=== PATIENT | male | born 1965 | race Caucasian/White ===

== ENCOUNTER → 2020-11-13 12:36 | Outpatient (BNVA) | payer OTHER, SELFPAY | PROVIDERS: PCP Nurse Practitioner Family; Visit Provider Orthopaedic Surgery | DX: M16.11 Unilateral primary osteoarthritis, right hip (principal); E66.01 Morbid (severe) obesity due to excess calories; Z68.41 Body mass index [BMI] 40.0-44.9, adult | CPT/HCPCS: 99212 ==

== ENCOUNTER 2020-11-14 07:15 | Outpatient (REF) | payer OTHER, SELFPAY ==
[2020-11-14 11:53] LABS: Alanine Aminotransferase 28 U/L (0-40); Albumin Level 4.5 g/dL (3.5-5.0); Alkaline Phosphatase 79 U/L (39-117); Anion Gap 14 (12-20); Aspartate Amino Transferase 21 U/L (5-37); Bilirubin Total 0.7 mg/dL (0.0-1.0); Blood Urea Nitrogen 14 mg/dL (9-16); Calcium 9.2 mg/dL (8.4-10.2); Carbon Dioxide 33 mmol/L (22-29); Chloride 94 mmol/L (96-108); Cholesterol 188 mg/dL; Estimated Glomerular Filt Rate > 60; Glucose Fasting 106 mg/dL (60-99); HDL Cholesterol 51 mg/dL; LDL Cholesterol Calculated 111 mg/dl; Potassium 4.3 mmol/L (3.3-5.1); Sodium 137 mmol/L (135-145); Total Protein 6.9 g/dL (6.5-8.0); Triglycerides 133 mg/dL
[2020-11-14 12:17] LABS: Prostate Specific Antigen Scr 0.42 ng/mL (<0.05-4.0); TSH reflex Free T4 1.94 uIU/mL (0.32-4.0)
== END 2020-11-14 07:16 | disposition home or self-care (01) ==
LOC: HO.HMGCLDS 07:15
PROVIDERS: PCP Nurse Practitioner Family; Visit Provider Nurse Practitioner Family
DX: Z00.00 Encounter for general adult medical examination without abnormal findings (principal); Z12.5 Encounter for screening for malignant neoplasm of prostate
CPT/HCPCS: 36415; 80053; 80061; 84153; 84443

== ENCOUNTER → 2020-11-30 11:46 | Outpatient (REF) | payer OTHER, SELFPAY ==
--- NOTE | 2020-11-30 12:00 | ECG_ITS ---
Hook-up date: 2020-11-30 12:05:00 Duration: 26:46:00 Test Indications: PALPITATIONS Medications: 199445 QRS complexes 2908 Ventricular ectopics which represent 2 % of total QRS comp. 26 Supraventricular ectopics which represent <1 % of total QRS comp. * Paced QRS complexs which represent % of total QRS comp. VENTRICULAR ECTOPY 2725 Isolated 43 Bigeminal Cycles 90 Couplets 1 Runs 3 Beats in Runs 3 Beats LONGEST at 137 BPM at 16:18:10 2020-11-30 3 Beats FASTEST at 137 BPM at 16:18:10 2020-11-30 SUPRAVENTRICULAR ECTOPY 26 Isolated 0 Couplets 0 Runs 0 Beats in Runs * Beats LONGEST at * BPM at :: -- * Beats FASTEST at * BPM at :: -- HEART RATES 42 MIN at 00:55:25 2020-12-01 88 AVG 143 MAX at 17:09:06 2020-11-30 LONGEST RR 1.6000 secs at 22:04:54 2020-11-30 S-T LEVELS Channel 1 - 128 mm at 12:05:00 2020-11-30 - 128 mm at 12:05:00 2020-11-30 Channel 2 - 128 mm at 12:05:00 2020-11-30 - 128 mm at 12:05:00 2020-11-30 Channel 3 - 128 mm at 03:12:41 -- - 128 mm at 03:12:41 Underlying rhythm is sinus; Average rate 88/min; range 42 - 143/min; About 24% of the time, rate >100/min; Frequent Premature ventricular complexes (2% of total); mostly isolated; some couplets, bigeminal cycles, no sustiained episodes; Patient did not report any symptoms in the diary Referred By: Alirio Iqbal Overread By: HERBER SAVAGE
== END ==
LOC: HO.CARD 11:46
PROVIDERS: Visit Provider Nurse Practitioner Family
DX: R00.2 Palpitations (principal); E66.01 Morbid (severe) obesity due to excess calories
CPT/HCPCS: 93226

== ENCOUNTER 2020-12-26 07:29 | Outpatient (REF) | payer OTHER, SELFPAY ==
--- NOTE | ~2020-12-26 | FL_ITS ---
EXAMINATION: XR FLUOROSCOPY WITH IMAGES CLINICAL INFORMATION: Right hip osteoarthritis COMPARISON: None. TECHNIQUE: Fluoroscopy performed by France Mcclendon NP. Fluoroscopy time: 0.1 minutes DAP: 3.5 Gycm2 Images: 2 FINDINGS: Images demonstrate needle placement projecting over the right hip joint and small amount of intra-articular contrast in the right hip joint. FL/FL guidance in treatment room IMPRESSION: Fluoroscopic guidance for right hip injection.
== END 2020-12-26 07:30 | disposition home or self-care (01) ==
LOC: HO.RADIR 07:29
PROVIDERS: Visit Provider Anesthesiology
DX: M16.11 Unilateral primary osteoarthritis, right hip (principal); E66.01 Morbid (severe) obesity due to excess calories; Z79.899 Other long term (current) drug therapy
CPT/HCPCS: 20610; J3300; Q9967

== ENCOUNTER → 2021-01-05 09:14 | Outpatient (REF) | payer OTHER, SELFPAY ==
--- NOTE | 2021-01-05 09:18 | CA_ITS ---
Transthoracic Echocardiogram Patient (Last, First, Middle): Hans Simon A Gender: Male Date of : 1965 Age: 55 Procedure Date: 01/05/2021 Procedure Type: Transthoracic Echocardiogram Location: OP Height: 170.18 cm Weight: 122.47 kg BSA: 2.30 m2 Heart Rate: bpm BP: 170 / 70 mmHg [employer] Inspector: [place] Referring MD: Alirio Iqbal [facility] Symptoms: R00.2 - Palpitations Study Quality: Fair ECG Rhythm: Sinus Conclusions: - The left ventricular systolic function is normal. The calculated ejection fraction is 57% by biplane method. - No obvious valvular pathology seen on this study. Findings Procedure Information Contrast agent, definity, is being given per protocol without apparent complications. Left Ventricle Normal left ventricular cavity size. There is mildly increased left ventricular wall thickness. The left ventricular systolic function is normal. The calculated ejection fraction is 57% by biplane method. There is no evidence of regional wall motion abnormalities. Diastolic function is normal for age. Right Ventricle Normal right ventricular cavity size and systolic function. Atria The left atrium is normal in size. The right atrium is normal in size. Aortic Valve There is a normal trileaflet aortic valve. There is mild calcification of the aortic valve. There is no aortic valve stenosis. There is no aortic valve regurgitation. Mitral Valve The mitral valve appears normal. There is trace mitral valve regurgitation. There is no mitral valve stenosis. Pulmonic Valve The pulmonic valve was not well visualized. Tricuspid Valve The tricuspid valve was not well visualized. There is trace tricuspid valve regurgitation. The pulmonary artery systolic pressure is normal. Great Vessels The aortic annulus, sinuses of valsalva, and asc aorta are normal in size. Venous The inferior vena cava is normal in size and collapses greater than 50% with inspiration. Pericardium/Pleural There is no evidence of pericardial effusion. Prior Study Comparison No prior study available for comparison. Recommendations, Care & Conclusions No obvious valvular pathology seen on this study. Measurements 2D Linear Measurements IVSd: 1.29 0.6-0.9/0.6-1.0 cm LVIDd: 5.70 3.9-5.3/4.2-5.9 cm LVIDd Index: 2.48 2.4-3.2/2.2-3.1 cm/m2 LVIDs: 4.54 2.0-3.6 cm LVPWd: 1.41 0.7-1.1 cm LA Diam: 4.50 2.7-3.8/3.0-4.0 cm LAIDs Index: 1.96 1.5-2.3 cm/m2 LV Mass: 423.81 67-162/88-224 g LV Mass Index: 184.27 43-95/49-115 g/m2 LVOT Diam: 2.30 3.0+(-)1.3 cm 2D Systolic Function EF 4C: 61.60 >55% EF 2C: 52.10 >55% EF BiP: 57.00 >55% Mitral Valve MV Pk E: 0.58 MV PK A: 0.72 MV Decel Time: 143.00 E/A: 0.80 E'Lateral: 11.10 E'Medial: 5.55 E/E' Med: 10.50 E/E' Lat: 5.30 PHT: 42.00 MVA PHT: 5.24 Decel Ashe: 4.08 Aortic Valve AoV Pk Aman: 1.64 AoV Pk Grad: 11.00 LVOT LVOT Pk Aman: 1.14 LVOT Mn Aman: 0.72 LVOT VTI: 0.21 LVOT Pk Grad: 5.00 LVOT Mn Grad: 3.00 LVOT Diam: 2.30 LVOT Area: 4.15 Diastolic Function MV Pk E: 0.58 MV Pk A: 0.72 E/A: 0.80 E'Medial: 5.55 E/E' Med: 10.50 E' Laterial: 11.10 E/E' Lat: 5.30 Tricuspid Valve TR Pk Aman: 2.33 TR Pk Grad: 22.00 RA Press: 3.00 RVSP: 25.00 Great Vessels Aorta Ao Asc: 3.40 2.1-3.4 cm Updated in Other Vendor System with Status of Final Juan Antonio Rebolledo MD electronically signed on 01/06/2021 2:31:02 PM with status of Final
== END ==
LOC: HO.CARD 09:14
PROVIDERS: Visit Provider Nurse Practitioner Family
DX: R00.2 Palpitations (principal); E66.01 Morbid (severe) obesity due to excess calories
CPT/HCPCS: 93306; Q9957

== ENCOUNTER 2021-02-14 08:44 | Outpatient (REF) | payer OTHER, SELFPAY ==
[2021-02-14 11:11] LABS: Glucose Urine UA NEG (NEG); Leukocyte Esterase Urine NEG (NEG); Nitrite Urine NEG (NEG); PH 7.5 (5.0-8.0); Specific Gravity - Urine 1.015 (1.005-1.025); UACC Culture Trigger NO; Urine Blood TRACE (NEG); Urine Ketones 15 MG/DL (NEG); Urine Protein NEG (NEG-TRACE)
[2021-02-14 11:13] LABS: Appearance Urine CLEAR; Color Urine YELLOW
[2021-02-14 11:32] LABS: WBC Urine 0-2 /HPF (0-4)
[2021-02-14 11:38] LABS: Alanine Aminotransferase 31 U/L (0-40); Albumin Level 4.4 g/dL (3.5-5.0); Alkaline Phosphatase 85 U/L (39-117); Anion Gap 12 (12-20); Aspartate Amino Transferase 27 U/L (5-37); Bilirubin Total 0.6 mg/dL (0.0-1.0); Blood Urea Nitrogen 13 mg/dL (9-16); Calcium 9.8 mg/dL (8.4-10.2); Carbon Dioxide 30 mmol/L (22-29); Chloride 100 mmol/L (96-108); Cholesterol 183 mg/dL; Estimated Glomerular Filt Rate > 60; Glucose Fasting 98 mg/dL (60-99); HDL Cholesterol 36 mg/dL; LDL Cholesterol Calculated 112 mg/dl; Potassium 4.1 mmol/L (3.3-5.1); Sodium 138 mmol/L (135-145); Total Protein 6.9 g/dL (6.5-8.0); Triglycerides 179 mg/dL
[2021-02-14 12:00] LABS: TSH reflex Free T4 2.34 uIU/mL (0.32-4.0)
== END 2021-02-14 08:45 | disposition home or self-care (01) ==
LOC: HO.HMGCLDS 08:44
PROVIDERS: PCP Nurse Practitioner Family; Visit Provider Nurse Practitioner Family
DX: Z00.00 Encounter for general adult medical examination without abnormal findings (principal)
CPT/HCPCS: 36415; 80053; 80061; 81001; 84443

== ENCOUNTER → 2021-03-14 09:23 | Outpatient (BNVA) | payer OTHER, SELFPAY | PROVIDERS: Visit Provider Orthopaedic Surgery | DX: Z01.812 Encounter for preprocedural laboratory examination (principal) ==

== ENCOUNTER 2021-03-15 | Outpatient (REF) | payer OTHER, SELFPAY ==
[2021-03-16 13:45] LABS: Urine Cytology See Pathology rpt
== END 2021-03-15 00:01 | disposition home or self-care (01) ==
LOC: HO.LNP
PROVIDERS: Visit Provider Nurse Practitioner Family
DX: R31.29 Other microscopic hematuria (principal)
CPT/HCPCS: 88112

== ENCOUNTER 2021-04-13 07:17 | Outpatient (REF) | payer OTHER, SELFPAY ==
[2021-04-13 11:29] LABS: Appearance Urine CLEAR; Color Urine YELLOW; Glucose Urine UA NEG (NEG); Leukocyte Esterase Urine NEG (NEG); PH 6.5 (5.0-8.0); Urine Blood TRACE (NEG); Urine Ketones 15 MG/DL (NEG); Urine Protein NEG (NEG-TRACE)
[2021-04-13 12:00] LABS: Nitrite Urine NEG (NEG); UACC Culture Trigger NO
[2021-04-13 12:01] LABS: Calcium Oxalate Crystals Urine 1+ /LPF; Mucus Urine 2+ /LPF; Squamous Epithelial Cell Urine 1+ /LPF; WBC Urine 0 /HPF (0-4)
== END 2021-04-13 07:18 | disposition home or self-care (01) ==
LOC: HO.HMGCLDS 07:17
PROVIDERS: PCP Nurse Practitioner Family; Visit Provider Nurse Practitioner Family
DX: R31.29 Other microscopic hematuria (principal)
CPT/HCPCS: 81001

== ENCOUNTER → 2021-04-16 10:41 | Outpatient (BNVA) | payer OTHER, SELFPAY | PROVIDERS: PCP Nurse Practitioner Family; Visit Provider Orthopaedic Surgery | DX: Z01.818 Encounter for other preprocedural examination (principal); M16.11 Unilateral primary osteoarthritis, right hip | CPT/HCPCS: 99212 ==

== ENCOUNTER 2021-04-18 06:21 | Inpatient (IN) | payer OTHER, SELFPAY ==
[2021-03-15 11:25] LABS: MANUAL DIFF FLAG NO
[2021-03-15 11:43] LABS: Basophils Absolute Auto 0.1 X10*3/uL (0.0-0.2); Basophils Percent Auto 0.5 % (0-2); Eosinophils Absolute Auto 0.3 X10*3/uL (0.0-0.4); Hematocrit 49.9 % (42-52); Hemoglobin 16.7 g/dl (14.0-18.0); Imm Gran Abs Auto 0.03 X10*3/uL (0.00-0.03); Imm Gran Pct Auto 0.3 % (0.0-0.4); Mean Corpuscular HGB Conc 33.5 g/dl (31.0-36.0); Mean Corpuscular Hemoglobin 31.1 pg (27.0-33.0); Mean Corpuscular Volume 92.9 fL (80-98); Mean Platelet Volume 11.4 fL (9.4-12.4); Monocytes Absolute Auto 0.9 X10*3/uL (0.1-1.2); Neutrophils Absolute Auto 5.5 X10*3/uL (2.0-8.3); Neutrophils Percent Auto 56.2 % (45-73); Platelet Count 208 X10*3/uL (160-400); Red Blood Count 5.37 X10*6/uL (4.60-5.80); Red Cell Distribution Width 13.2 % (11.0-16.0); White Blood Count 9.8 X10*3/uL (4.8-10.8)
[2021-03-15 11:58] LABS: Anion Gap 13 (12-20); Blood Urea Nitrogen 16 mg/dL (9-16); Calcium 9.5 mg/dL (8.4-10.2); Carbon Dioxide 26 mmol/L (22-29); Chloride 101 mmol/L (96-108); Estimated Glomerular Filt Rate > 60; Glucose Random 87 mg/dL (60-115); Sodium 136 mmol/L (135-145)
[2021-03-15 14:00] LABS: Urine Cytology See Pathology rpt
[2021-03-15 14:10] LABS: Glucose Urine UA NEG (NEG); Leukocyte Esterase Urine NEG (NEG); Nitrite Urine NEG (NEG); Specific Gravity - Urine <= 1.005 (1.005-1.025); UACC Culture Trigger NO; Urine Blood TRACE (NEG); Urine Ketones 5 MG/DL (NEG); Urine Protein NEG (NEG-TRACE)
[2021-03-15 14:13] LABS: Appearance Urine CLEAR; Color Urine YELLOW
[2021-03-15 14:35] LABS: WBC Urine 0 /HPF (0-4)
[2021-03-15 14:36] LABS: RBC Urine 0-2 /HPF (0); Squamous Epithelial Cell Urine 1+ /LPF
[2021-04-16 12:58] VITALS: BP 117/71; PULSE 77; RESP 16; O2SAT 96; BMI 41.4
--- NOTE | 2021-04-16 13:40 | HO.ANESPROP2 ---
Documented by User: Christine Hyde NP 04/17/21 08:22 HPI - Anesthesia Eval Consult details Narrative: 56yo M for Right Total Hip Replacement PCP cleared Workup for palpiations in 2020. ECHO nml, Holter showed freq isolated PVC PMFSH Active Problems Active Problems: All Active Problems (Updated 04/16/21 @ 13:28 by Irene Hector, RN) Long toenail (Acute) Skin lesions, generalized (Acute) Physical exam (Acute) Palpitations (Acute) Screening PSA (prostate specific antigen) (Acute) Morbid obesity (Acute) Microscopic hematuria (Acute) Pre-op evaluation (Acute) Primary osteoarthritis of right hip (Acute) Past Medical History Medical History (Updated 04/16/21 @ 13:28 by Irene Hector, RN) Ankle fracture, left Gout Hypertension Primary osteoarthritis of right hip Rupture of right biceps tendon Family History Family History (Updated 02/14/21 @ 09:16 by Nina Yang) Father COPD (chronic obstructive pulmonary disease) Cancer Hypertension Substance abuse Mother COPD (chronic obstructive pulmonary disease) Hypertension Substance abuse Family history of problems with anesthesia: No Surgical History Surgical History (Updated 04/16/21 @ 13:27 by Irene Hector, RN) H/O colonoscopy H/O right wrist surgery History of carpal tunnel repair History of left hip replacement History of Problems with Anesthesia: No Social History Social History (Updated 04/16/21 @ 13:30 by Irene Hector, JUN) Housing: House Are you a primary director career services to a significant other at home: No Do you presently have visiting nurse or other home services: No Patient Tobacco Use Status: Current everyday Tobacco user Tobacco use type: Cigarette Cigarettes Per Day: 2 Years Smoked: 15 Smoked in Last 30 Days: Yes e-Cigarette/Vaping Use: Currently Using Patient Interested in Nicotine Replacement: No Patient Given Instructions on How to Stop Smoking: Yes Date Education Initiated: 04/16/21 Second Hand Smoke Exposure: No Use of substances other than those prescribed or required for medical reasons: Yes Substance Use Type: Marijuana Substance Use Frequency: Daily Have you been hit, kicked, punched, or otherwise hurt by someone within the past year? If so, by whom?: No Spiritual Healthcare Practices: none Spiritism Healthcare Practices: none Cultural Healthcare Practices: none Are you DNR?: No Advance Directives: No Advance Directives Information Provided: No Advance Directives on File: No Recently lost weight without trying: No Nutrition Risks: No Nutritional Risk Poor oral hygiene: No service: No Current occupational status: employed Current occupation: [employer] Current occupational exposures/hazards: No Narrative Narrative: No recent illness No CP/SOB with grocery shopping Meds Allergies Allergy/AdvReac Type Severity Reaction Status Date / Time No Known Allergies Allergy Verified 04/16/21 13:18 Home Medications Medication Instructions Recorded Confirmed Last Taken Type indomethacin 50 mg capsule 50 mg PO BID 04/09/21 04/16/21 Unknown History cetirizine 10 mg capsule (Zyrtec) 10 mg PO DAILY 04/16/21 04/16/21 Unknown History ipratropium bromide 21 mcg (0.03 2 spray INTRANASAL DAILY 04/16/21 04/16/21 Unknown History %) nasal spray krill oil 500 mg capsule mg PO 04/16/21 Unknown History vitamin E 400 unit capsule 400 unit PO DAILY 04/16/21 04/16/21 Unknown History Exam Exam Date and Time: April 16, 2021 1340 Height,Weight and Vital Signs: Height 5 ft 7 in Weight 120 kg Last Vital Signs Pulse 77 04/16/21 12:58 Resp 16 04/16/21 12:58 BP 117/71 04/16/21 12:58 Pulse Ox 96 04/16/21 12:58 Pertinent Lab Results Pertinent Lab Results: Laboratory Tests 03/15/21 03/15/21 03/15/21 10:12 10:12 11:45 WBC 9.8 RBC 5.37 Hgb 16.7 Hct 49.9 MCV 92.9 MCH 31.1 MCHC 33.5 RDW 13.2 Plt Count 208 MPV 11.4 Immature Gran % (Auto) 0.3 Neut % (Auto) 56.2 Lymph % (Auto) 31.0 Heard % (Auto) 9.0 Eos % (Auto) 3.0 Baso % (Auto) 0.5 Lymph # (Auto) 3.0 Heard # (Auto) 0.9 Eos # (Auto) 0.3 Baso # (Auto) 0.1 Abs Immat Gran (auto) 0.03 Absolute Neuts (auto) 5.5 Absolute Nucleated RBC 0.000 Nucleated RBC % (auto) 0.0 Sodium 136 Potassium 4.0 Chloride 101 Carbon Dioxide 26 Anion Gap 13 BUN 16 Creatinine 0.84 Estim Creat Clear Calc TNP Estimated GFR > 60 Random Glucose 87 Calcium 9.5 Urine Color YELLOW Urine Appearance CLEAR Urine pH 6.0 Ur Specific [place] <= 1.005 Urine Protein NEG Urine Glucose (UA) NEG Urine Ketones 5 Urine Blood TRACE Urine Nitrite NEG Ur Leukocyte Esterase NEG Urine RBC 0-2 Urine WBC 0 Ur Squamous Epith Cells 1+ Urine Bacteria NONE Narrative Narrative: EKG 03/2021 NSR with SA @ 69 HOLTER 11/2020 Underlying rhythm is sinus; Average rate 88/min; range 42 - 143/min; About 24% of the time, rate >100/min; Frequent Premature ventricular complexes (2% of total); mostly isolated; some couplets, bigeminal cycles,? no sustiained episodes; Patient did not report any symptoms in the diary ECHO 12/2020 Conclusions: - The left ventricular systolic function is normal.? The ? calculated ejection fraction is 57% by biplane method. ? - No obvious valvular pathology seen on this study.?? Airway Mallampati Class: II TM Dist: >3cm Neck ROM: Full Adult Head Mouth w/Numbe Teeth: 1. Broken Loose/Missing/Broken Teeth: Yes (1xbroken, molars extracted) Heart: RRR Lungs: CTAB Assessment and Plan Assessment Anesthesia Assessment: Anesthesia Plan Discussed, Smoking Cess. Discussed and PAT Visit Final Anesthetic Review Family History of Problems with Anesthesia: No History of Problems with Anesthesia: No Documented by User: Nuno Rodgers MD 04/18/21 06:50 [facility] Past Medical History Medical History (Updated 04/16/21 @ 13:28 by Irene Hector RN) Ankle fracture, left Gout Hypertension Primary osteoarthritis of right hip Rupture of right biceps tendon Family History Family History (Updated 02/14/21 @ 09:16 by Nina Yang) Father COPD (chronic obstructive pulmonary disease) Cancer Hypertension Substance abuse Mother COPD (chronic obstructive pulmonary disease) Hypertension Substance abuse Surgical History Surgical History (Updated 04/16/21 @ 13:27 by Irene Hector RN) H/O colonoscopy H/O right wrist surgery History of carpal tunnel repair History of left hip replacement Social History Social History (Updated 04/16/21 @ 13:30 by Irene Hector RN) Housing: House Are you a primary director career services to a significant other at home: No Do you presently have visiting nurse or other home services: No Patient Tobacco Use Status: Current everyday Tobacco user Tobacco use type: Cigarette Cigarettes Per Day: 2 Years Smoked: 15 Smoked in Last 30 Days: Yes e-Cigarette/Vaping Use: Currently Using Patient Interested in Nicotine Replacement: No Patient Given Instructions on How to Stop Smoking: Yes Date Education Initiated: 04/16/21 Second Hand Smoke Exposure: No Use of substances other than those prescribed or required for medical reasons: Yes Substance Use Type: Marijuana Substance Use Frequency: Daily Have you been hit, kicked, punched, or otherwise hurt by someone within the past year? If so, by whom?: No Spiritual Healthcare Practices: none Spiritism Healthcare Practices: none Cultural Healthcare Practices: none Are you DNR?: No Advance Directives: No Advance Directives Information Provided: No Advance Directives on File: No Recently lost weight without trying: No Nutrition Risks: No Nutritional Risk Poor oral hygiene: No service: No Current occupational status: employed Current occupation: [employer] Current occupational exposures/hazards: No Meds Allergies Allergy/AdvReac Type Severity Reaction Status Date / Time No Known Allergies Allergy Verified 04/16/21 13:18 Home Medications Medication Instructions Recorded Confirmed Last Taken Type indomethacin 50 mg capsule 50 mg PO BID 04/09/21 04/16/21 Unknown History cetirizine 10 mg capsule (Zyrtec) 10 mg PO DAILY 04/16/21 04/16/21 Unknown History ipratropium bromide 21 mcg (0.03 2 spray INTRANASAL DAILY 04/16/21 04/16/21 Unknown History %) nasal spray krill oil 500 mg capsule mg PO 04/16/21 Unknown History vitamin E 400 unit capsule 400 unit PO DAILY 04/16/21 04/16/21 Unknown History Exam Airway Adult Head Mouth w/Numbe Teeth: 1. Broken Assessment and Plan Final Anesthetic Review NPO: Yes ASA Class: III Final Preanesthetic Review: No Changes in Pt Med Stat, Meds/Allgs Chart Reviewed, Consent Obtained/Reviewed and Anes Risks/Benef Reviewed Patient Risk: Intermediate Procedure Risk: Intermediate Assessment/Block/Sedation in SS: Assess/Block/Sedation-SS Anesthetic Plan Anesthetic Plan: GA and Agree w/ Assess. and Plan Disposition: Standard PACU
[2021-04-16 15:20] LABS: MRSA Nasal PCR NEGATIVE (Negative); SA Nasal PCR NEGATIVE (Negative)
[2021-04-18] VITALS (19 sets, daily range): BP systolic 124–168; BP diastolic 55–91; PULSE 80–97; RESP 16–20; TEMP 36.1–36.9; O2SAT 93–99
--- NOTE | ~2021-04-18 | XR_ITS ---
EXAMINATION: XR PELVIS CLINICAL INFORMATION: Post right hip replacement COMPARISON: Previous x-ray January 2020 TECHNIQUE: AP view of the pelvis. FINDINGS: There is a new right hip replacement in satisfactory position. No fracture or dislocation is seen. There is a left hip replacement that appears unchanged. Bones of the pelvis are unremarkable. Soft tissues are unremarkable. XR/XR pelvis 1-2V IMPRESSION: Satisfactory appearance of right hip replacement.
[2021-04-18] MEDS: oxyCODONE HCl ER 10 MG TAB.ER.12H PO ×2 (06:35→21:06)
[2021-04-18] MEDS: Lactated Ringers 1,000 ML 100 ML IVCONT (06:55)
[2021-04-18 06:56] LABS: COVID-19 Test Negative (Negative)
--- NOTE | 2021-04-18 07:15 | MHC.SHP ---
Pre-Procedural Eval Section A Date of Service: 04/18/21 The patient is an INPATIENT: No Changes since office visit: Yes Patient answered all questions; No Cold of Flu in the past 2 weeks, No New Medical Problems and No Changes in Medication The History & Physical has been completed within 30 days and I have reviewed it.: Yes Section B Chief Complaint: RT DEBBIE Allergies: Allergies Allergy/AdvReac Type Severity Reaction Status Date / Time No Known Allergies Allergy Verified 04/16/21 13:18 Plan I have reviewed the history and physical and performed a pertinent physical examination on my patient. No changes have occurred unless specified.
[2021-04-18] MEDS: HYDROmorphone HCl 0.5 MG/0.5 ML SYRINGE IVPUSH ×2 (10:14→10:22)
--- NOTE | 2021-04-18 10:18 | P.BOP_ITS ---
Brief Operative Note Date of Service: 04/18/21 Pre-op diagnosis: right hip OA Post-op diagnosis: same Procedure: Right DEBBIE Implants: Derek trident2 52/ 20 deg post lipped liner and Accolade2 132deg #6 with =2.5 26 ceramic head Surgeon: Juan Carlos Jauregui MD Anesthesia: GETA and local Was an Customs And Border Protection Officer used for this Procedure?: Yes Customs And Border Protection Officer: Alex Mitchell Estimated blood loss (mL): 150 IV fluids (mL): 1,000 Pathology: other Condition: stable Disposition: PACU
--- NOTE | 2021-04-18 10:19 | P.OP_ITS ---
Operative Note Operative Note Date of Service: 04/18/21 Narrative: Pre-op diagnosis: right hip OA Post-op diagnosis: same Procedure: Right DEBBIE Implants: [place] trident2 52/ 20 deg post lipped liner and Accolade2 132deg #6 with =2.5 26 ceramic head Surgeon: Juan Carlos Jauregui MD Anesthesia: GETA and local Was an Storage Battery Tester used for this Procedure?: Yes Storage Battery Tester: Alex Mitchell Estimated blood loss (mL): 150 IV fluids (mL): 1,000 Pathology: other Condition: stable Disposition: PACU Procedure in detail: Patient was brought into the operating room and placed in the left lateral decubitus position. All bony prominences were well padded and the limb was prepped and draped in standard sterile fashion. Time-out was called to identify proper site procedure proper surgeon IV antibiotics and 1 g of transaxemic acid were administered. I began by making a curvilinear incision over the posterolateral aspect of the greater trochanter. Dissection was taken down to the tensor fascia which was incised in line with the incision and a Charnley retractor was placed. Cautery was used to maintain hemostasis. A werewolf device was also used. The hip was internally rotated and the external rotators were identified. The vessels were cauterized and a full-thickness capsular/external rotator layer was developed starting just proximal to the piriformis. This layer was tagged and a dull Hohmann retractor was placed underneath the neck in the hip was dislocated. The head was eburnated and deformed. A neck cut was made 1 cm proximal to the lesser trochanter and the head and neck were removed and measured as a 49mm on the back table. I then placed my anterior-posterior acetabular retractors and performed a labrectomy. The cup was sclerotic. I then started with a 46 reamer and sequentially reamed up to a size 52 and impacted a 52mm cup at approximately 45 degrees of inclination and 25 degrees of version. I then placed 2 screws as the posterior wall was thin. Standard AO technique was used and a 30mm and a 15 mm screw was added. I then placed a 20 deg post lipped liner and turned my attention to the femur. I identified the piriformis insertion and used this as a starting point for my ania cutter. The medius tendon was protected with a Hibs retractor. I then used a Charnley awl to identify the canal and a curved curette to remove the lateral bone. I irrigated copiously. I then sequentially broached in the patient's natural version to a size #6 and placed my trial implants. Using a trail head I took the hip through range of motion. I was very satisfied with the stability and length. Therefore I removed all instrumentation and copiously irrigated. I placed my final femoral implant (#6, 132 deg and a =2.5 ceramic 36 femoral head) and again took the hip through range of motion and was satisfied with the stability and length. I then irrigated for 3 minutes with iodine and placed 1 g of local tranaxemic acid. I then performed a capsular closure with 2.0 fiberwire, Holli's fascia with 0 Vicryl, subcuticular with 2-0 Vicryl and the skin with lesley. Patient was placed into a sterile dressing. Radiographs were obtained at the completion of the case and I was satisfied with the component position. Patient was extubated brought to the recovery room in stable condition.
[2021-04-18] MEDS: fentaNYL citrate/PF 100 MCG/2 ML VIAL 50 MCG IVPUSH ×2 (10:31→10:38)
--- NOTE | 2021-04-18 11:50 | PM.IMCN ---
History of Present Illness Data of Consult Service Date: 04/18/21 Primary Care Provider: Alirio Iqbal, [facility]- HPI Reason for consult: htn 56M presented for elective right hip arthroplasty for ongoing history of OA. patient has history of htn treated with amlodipine and lisinopril, and hld treated with pravasatin, he is morbidly obese but has had successful 60-70 lbs intentional weight loss prior to undergoing surgery. postoperatively he has pain at surgical site, otherwise no sob, chest pain, fever, chills Review of Systems Review of Systems: Constitutional: Denies fever, denies Chills Eyes: denies blurry vision ENT: denies sore throat CVS: denies chest pain Respiratory: Denies dyspnea GI: no abdominal pain : denies dysuria MSK: denies neck pain Skin: denies rash Neuro: denies specific motor weakness Psych: denies suicidal ideation Endocrine: denies heat/cold intolerance Hematologic: denies easy bleeding Allergy: denies hives [facility] Medical History (Updated 04/18/21 @ 11:54 by Meño Fortune MD) Ankle fracture, left Gout HLD (hyperlipidemia) Hypertension Primary osteoarthritis of right hip Rupture of right biceps tendon Family History Father COPD (chronic obstructive pulmonary disease) Cancer Hypertension Substance abuse Mother COPD (chronic obstructive pulmonary disease) Hypertension Substance abuse Pertinent family history: see above Surgical History H/O colonoscopy H/O right wrist surgery History of carpal tunnel repair History of left hip replacement Social History Housing: House Are you a primary lawn care worker to a significant other at home: No Do you presently have visiting nurse or other home services: No Patient Tobacco Use Status: Current everyday Tobacco user Tobacco use type: Cigarette Cigarettes Per Day: 2 Years Smoked: 15 Smoked in Last 30 Days: Yes e-Cigarette/Vaping Use: Currently Using Patient Interested in Nicotine Replacement: No Patient Given Instructions on How to Stop Smoking: Yes Date Education Initiated: 04/16/21 Second Hand Smoke Exposure: No Use of substances other than those prescribed or required for medical reasons: Yes Substance Use Type: Marijuana Substance Use Frequency: Daily Currently Displaying Signs/Symptoms of Drug Intoxication Withdrawal: No Have you been hit, kicked, punched, or otherwise hurt by someone within the past year? If so, by whom?: No Spiritual Healthcare Practices: none Mosque Healthcare Practices: none Cultural Healthcare Practices: none Are you DNR?: No Advance Directives: No Advance Directives Information Provided: No Advance Directives on File: No Do you have thoughts of harming others: None Do you have a plan to hurt others: No Plan Recently lost weight without trying: No Nutrition Risks: No Nutritional Risk Poor oral hygiene: No service: No Current occupational status: employed Current occupation: [employer] Current occupational exposures/hazards: No Meds Allergies Allergy/AdvReac Type Severity Reaction Status Date / Time No Known Allergies Allergy Verified 04/16/21 13:18 Active Medications: Current Medications Acetaminophen (Acetaminophen 325 Mg Tablet) 650 mg PO Q6H PRN PRN Reason: Pain, Mild (Pain Scale 1-3) Amlodipine Besylate (Amlodipine Besylate 5 Mg Tablet) 5 mg PO DAILY [facility]; Protocol Celecoxib (Celecoxib 200 Mg Capsule) 200 mg PO BID [facility] Docusate Sodium (Docusate Sodium 100 Mg Capsule) 100 mg PO BID [facility] Gabapentin (Gabapentin 100 Mg Capsule) 100 mg PO TID [facility] Hydromorphone HCl (Hydromorphone Hcl 0.5 Mg/0.5 Ml Syringe) 0.25 mg IVPUSH Q4H PRN; Protocol PRN Reason: Pain, Severe (Pain Scale 7-10) Dextrose/Sodium Chloride (D51/2ns) 1,000 mls @ 80 mls/hr IVCONT .[id number] [facility] Cefazolin Sodium/Dextrose (Ancef) 2 gm in 50 mls @ 100 mls/hr IV POSTOP [facility] Loratadine (Loratadine 10 Mg Tablet) 10 mg PO DAILY [facility] Ondansetron HCl (Ondansetron Hcl 4 Mg/2 Ml Vial) 4 mg IVPUSH Q8H PRN PRN Reason: Nausea and Vomiting Oxycodone HCl (Oxycodone Hcl Immed Release 5 Mg Tablet) 10 mg PO Q4H PRN PRN Reason: Pain, Moderate (Pain Scale 4-6 Oxycodone HCl (Oxycodone Hcl Er 10 Mg Tab.Er.12h) 10 mg PO BID [facility] Pravastatin Sodium (Pravastatin Sodium 80 Mg Tablet) 80 mg PO DAILY [facility] Sodium Chloride (0.9 % Sodium Chloride Flush 3 Ml Syringe) 3 ml IVFLUSH QSHIFT [facility] Home Medications Medication Instructions Recorded Confirmed Last Taken Type indomethacin 50 mg capsule 50 mg PO BID 04/09/21 04/16/21 Unknown History cetirizine 10 mg capsule (Zyrtec) 10 mg PO DAILY 04/16/21 04/16/21 Unknown History ipratropium bromide 21 mcg (0.03 2 spray INTRANASAL DAILY 04/16/21 04/16/21 Unknown History %) nasal spray krill oil 500 mg capsule mg PO 04/16/21 Unknown History vitamin E 400 unit capsule 400 unit PO DAILY 04/16/21 04/16/21 Unknown History Physical Exam Vital Signs and Narrative: Vital Signs: Last Vital Signs Temp 97.5 F 04/18/21 11:40 Pulse 97 04/18/21 11:40 Resp 18 04/18/21 11:40 BP 168/88 H 04/18/21 11:40 Pulse Ox 93 04/18/21 11:01 Body Mass Index 41.4 General: no acute distress HEENT: atraumatic Neck: normal to visual inspection CVS: S1, S2, RRR Resp: CTA bilateral Chest: non tender GI: soft, non tender, non distended : no CVA tenderness Skin: no rashes Extremities: no edema Neuro: Oriented X3, grossly intact Psych: cooperative Results Labs CBC and Chem 7: 03/15/21 10:12 03/15/21 10:12 Labs: Laboratory Results - last 24 hr 04/18/21 06:15 COVID-19 ([facility]) Negative COVID-19 Clin Com See Note Imaging Radiologist's Impressions: Impressions Pelvis X-Ray 04/18/21 09:17 IMPRESSION: Satisfactory appearance of right hip replacement. Assessment and Plan (1) Morbid obesity: Status: Acute (2) Hypertension: Status: Acute (3) HLD (hyperlipidemia): Status: Acute 56M presented for elective right hip arthroplasty s/p right hip arthoplasty management per orthopedics htn amlodipine 5mg daily can hold lisinopril for now, will restart if persistently elevated hld statin morbid obesity continue weight loss
[2021-04-18] MEDS: Acetaminophen 325 MG TABLET 650 MG PO (12:12)
[2021-04-18] MEDS: oxyCODONE HCl Immed Release 5 MG TABLET 10 MG PO (12:13)
[2021-04-18] MEDS: ceFAZolin Sodium/Dextrose,Iso 2 GM/50 ML PIGGYBACK IV (15:10)
[2021-04-18] MEDS: HYDROmorphone HCl 0.5 MG/0.5 ML SYRINGE 0.25 MG IVPUSH ×3 (15:10→23:34)
[2021-04-18] MEDS: Gabapentin 100 MG CAPSULE PO ×2 (15:10→21:06)
[2021-04-18] MEDS: 0.9 % Sodium Chloride Flush 3 ML SYRINGE IVFLUSH ×2 (15:11→21:06)
[2021-04-18] MEDS: Celecoxib 200 MG CAPSULE PO (21:06)
[2021-04-18] MEDS: Docusate Sodium 100 MG CAPSULE PO (21:06)
[2021-04-19 03:00] VITALS: BP 139/73; PULSE 89; RESP 18; TEMP 36.3; O2SAT 94
[2021-04-19 05:55] LABS: Basophils Percent Auto 0.1 % (0-2); Eosinophils Percent Auto 0.1 % (0-4); Hematocrit 45.2 % (42-52); Imm Gran Abs Auto 0.08 X10*3/uL (0.00-0.03); Imm Gran Pct Auto 0.5 % (0.0-0.4); Lymphocytes Absolute Auto 2.6 X10*3/uL (1.2-4.9); Lymphocytes Percent Auto 17.3 % (20-40); MANUAL DIFF FLAG SCAN; Mean Corpuscular HGB Conc 33.2 g/dl (31.0-36.0); Mean Corpuscular Hemoglobin 31.3 pg (27.0-33.0); Mean Corpuscular Volume 94.2 fL (80-98); Mean Platelet Volume 11.5 fL (9.4-12.4); Monocytes Absolute Auto 1.5 X10*3/uL (0.1-1.2); Monocytes Percent Auto 10.3 % (2-11); Neutrophils Absolute Auto 10.7 X10*3/uL (2.0-8.3); Neutrophils Percent Auto 71.7 % (45-73); Platelet Count 203 X10*3/uL (160-400); Red Cell Distribution Width 12.5 % (11.0-16.0); SCAN SMEAR FLAG 1
[2021-04-19 06:13] LABS: Anion Gap 14 (12-20); Blood Urea Nitrogen 11 mg/dL (9-16); Calcium 9.1 mg/dL (8.4-10.2); Carbon Dioxide 28 mmol/L (22-29); Chloride 100 mmol/L (96-108); Creatinine Clr Calc Pharmacy 120.2; Estimated Glomerular Filt Rate > 60; Glucose Fasting 112 mg/dL (60-99); Potassium 4.5 mmol/L (3.3-5.1); Sodium 137 mmol/L (135-145)
[2021-04-19 06:17] LABS: SLIDE REVIEW VERIFIED
[2021-04-19] MEDS: oxyCODONE HCl Immed Release 5 MG TABLET 10 MG PO ×2 (06:29→10:44)
[2021-04-19 07:00] VITALS: BP 158/72; PULSE 85; RESP 16; TEMP 36.4; O2SAT 98
[2021-04-19] MEDS: amLODIPine Besylate 5 MG TABLET PO (08:07)
[2021-04-19] MEDS: Celecoxib 200 MG CAPSULE PO (08:07)
[2021-04-19] MEDS: Docusate Sodium 100 MG CAPSULE PO (08:07)
[2021-04-19] MEDS: Loratadine 10 MG TABLET PO (08:08)
[2021-04-19] MEDS: Pravastatin Sodium 80 MG TABLET PO (08:08)
[2021-04-19] MEDS: oxyCODONE HCl ER 10 MG TAB.ER.12H PO (08:08)
[2021-04-19] MEDS: Gabapentin 100 MG CAPSULE PO (08:08)
[2021-04-19 08:52] VITALS: BP 158/72; PULSE 85; O2SAT 98
--- NOTE | 2021-04-19 08:53 | PM.PNORT ---
Subjective Subjective Date of Service: 04/19/21 Interval history: POD1 s/p RTHA. Patient is resting in bed comfortably. No overnight events. Pain is well managed. No additional complaints. Physical Exam Vital Signs: Vital Signs: Last Vital Signs Temp 97.6 F 04/19/21 07:00 Pulse 85 04/19/21 07:00 Resp 16 04/19/21 07:00 BP 158/72 H 04/19/21 07:00 Pulse Ox 98 04/19/21 07:00 Body Mass Index 41.4 Const: General: cooperative, healthy appearing and no acute distress Resp: Effort & Inspection: normal respiratory effort and able to speak in complete sentences Cardio: Rate: regular rate Peripheral pulses: Peripheral pulses 2+ throughout GI: Palpation (GI): Soft to palpation Skin: Lesions: no lesions Rashes: no rashes Extrem: Other: Right hip Aquacel dressing is clean, dry, and intact. No drainage or erythema. NVI. Procedures Date of Service Date of Service: 04/19/21 Progress Note: A&P Assessment and plan (1) S/P total hip arthroplasty: Status: Acute Assessment and Plan: Continue pain mgmnt Begin ASA for dvt ppx begin PT for RTHA Dispo planning-Pending PT eval, pain mgmnt Fall Risk Details Current Medications: Current Medications Acetaminophen (Acetaminophen 325 Mg Tablet) 650 mg PO Q6H PRN PRN Reason: Pain, Mild (Pain Scale 1-3) Last Admin: 04/18/21 12:12 Dose: 650 mg Documented by: Amlodipine Besylate (Amlodipine Besylate 5 Mg Tablet) 5 mg PO DAILY [facility]; Protocol Last Admin: 04/19/21 08:07 Dose: 5 mg Documented by: Celecoxib (Celecoxib 200 Mg Capsule) 200 mg PO BID [facility] Last Admin: 04/19/21 08:07 Dose: 200 mg Documented by: Docusate Sodium (Docusate Sodium 100 Mg Capsule) 100 mg PO BID [facility] Last Admin: 04/19/21 08:07 Dose: 100 mg Documented by: Gabapentin (Gabapentin 100 Mg Capsule) 100 mg PO TID [facility] Last Admin: 04/19/21 08:08 Dose: 100 mg Documented by: Hydromorphone HCl (Hydromorphone Hcl 0.5 Mg/0.5 Ml Syringe) 0.25 mg IVPUSH Q4H PRN; Protocol PRN Reason: Pain, Severe (Pain Scale 7-10) Last Admin: 04/18/21 23:34 Dose: 0.25 mg Documented by: Loratadine (Loratadine 10 Mg Tablet) 10 mg PO DAILY [facility] Last Admin: 04/19/21 08:08 Dose: 10 mg Documented by: Ondansetron HCl (Ondansetron Hcl 4 Mg/2 Ml Vial) 4 mg IVPUSH Q8H PRN PRN Reason: Nausea and Vomiting Oxycodone HCl (Oxycodone Hcl Immed Release 5 Mg Tablet) 10 mg PO Q4H PRN PRN Reason: Pain, Moderate (Pain Scale 4-6 Last Admin: 04/19/21 06:29 Dose: 10 mg Documented by: Oxycodone HCl (Oxycodone Hcl Er 10 Mg Tab.Er.12h) 10 mg PO BID [facility] Last Admin: 04/19/21 08:08 Dose: 10 mg Documented by: Pravastatin Sodium (Pravastatin Sodium 80 Mg Tablet) 80 mg PO DAILY [facility] Last Admin: 04/19/21 08:08 Dose: 80 mg Documented by: Sodium Chloride (0.9 % Sodium Chloride Flush 3 Ml Syringe) 3 ml IVFLUSH QSHIFT [facility] Last Admin: 04/18/21 21:06 Dose: 3 ml Documented by: Time Spent With Patient Time: Total time spent is greater than 50% in coordination of care (as documented) at patient's floor/unit and/or counseling patient: Time with patient: less than 15 minutes Quality Stroke Does the patient have a stroke diagnosis?: No VTE Prior VTE?: No VTE Risk Level:: Surgical - high VTE Device Contraindication: N/A - Device Ordered VTE Drug Contraindication: N/A - Med Ordered
--- NOTE | 2021-04-19 09:48 | P.PNIM_ITS ---
Subjective Subjective Date of Service: 04/19/21 Interval History: cc: hip pain interval history: feeling well Cardiovascular Cardiovascular: Reports no additional cardiovascular complaints Respiratory Respiratory: Reports no additional respiratory complaints Physical Exam Vital Signs: Vital Signs: Last Vital Signs Temp 97.6 F 04/19/21 07:00 Pulse 85 04/19/21 08:52 Resp 16 04/19/21 07:00 BP 158/72 H 04/19/21 08:52 Pulse Ox 98 04/19/21 08:52 Body Mass Index 41.4 Const General:?cooperative, healthy appearing and no acute distress Resp Effort & Inspection:?normal respiratory effort and able to speak in complete sentences Cardio Rate:?regular rate Peripheral pulses:?Peripheral pulses 2+ throughout GI Palpation (GI):?Soft to palpation Skin Lesions:?no lesions Rashes:?no rashes Extrem Other:?Right hip Aquacel dressing is clean, dry, and intact. No drainage or erythema. NVI.? Objective Data Active Medications Acetaminophen (Acetaminophen 325 Mg Tablet) 650 mg PO Q6H PRN PRN Reason: Pain, Mild (Pain Scale 1-3) Last Admin: 04/18/21 12:12 Dose: 650 mg Documented by: CARMEN Amlodipine Besylate (Amlodipine Besylate 5 Mg Tablet) 5 mg PO DAILY [facility]; Protocol Last Admin: 04/19/21 08:07 Dose: 5 mg Documented by: IVORY Aspirin (Aspirin 325 Mg Tablet) 325 mg PO BID [facility] Celecoxib (Celecoxib 200 Mg Capsule) 200 mg PO BID [facility] Last Admin: 04/19/21 08:07 Dose: 200 mg Documented by: IVORY Docusate Sodium (Docusate Sodium 100 Mg Capsule) 100 mg PO BID [facility] Last Admin: 04/19/21 08:07 Dose: 100 mg Documented by: IVORY Gabapentin (Gabapentin 100 Mg Capsule) 100 mg PO TID [facility] Last Admin: 04/19/21 08:08 Dose: 100 mg Documented by: IVORY Hydromorphone HCl (Hydromorphone Hcl 0.5 Mg/0.5 Ml Syringe) 0.25 mg IVPUSH Q4H PRN; Protocol PRN Reason: Pain, Severe (Pain Scale 7-10) Last Admin: 04/18/21 23:34 Dose: 0.25 mg Documented by: KEVIN Loratadine (Loratadine 10 Mg Tablet) 10 mg PO DAILY [facility] Last Admin: 04/19/21 08:08 Dose: 10 mg Documented by: IVORY Ondansetron HCl (Ondansetron Hcl 4 Mg/2 Ml Vial) 4 mg IVPUSH Q8H PRN PRN Reason: Nausea and Vomiting Oxycodone HCl (Oxycodone Hcl Immed Release 5 Mg Tablet) 10 mg PO Q4H PRN PRN Reason: Pain, Moderate (Pain Scale 4-6 Last Admin: 04/19/21 06:29 Dose: 10 mg Documented by: KEVIN Oxycodone HCl (Oxycodone Hcl Er 10 Mg Tab.Er.12h) 10 mg PO BID [facility] Last Admin: 04/19/21 08:08 Dose: 10 mg Documented by: IVORY Pravastatin Sodium (Pravastatin Sodium 80 Mg Tablet) 80 mg PO DAILY [facility] Last Admin: 04/19/21 08:08 Dose: 80 mg Documented by: IVORY Sodium Chloride (0.9 % Sodium Chloride Flush 3 Ml Syringe) 3 ml IVFLUSH QSHIFT [facility] Last Admin: 04/18/21 21:06 Dose: 3 ml Documented by: KEVIN Labs CBC & Chem 7: 04/19/21 05:31 04/19/21 05:31 Labs: Laboratory Results - last 24 hr 04/19/21 04/19/21 05:31 05:31 MCV 94.2 MCH 31.3 MCHC 33.2 RDW 12.5 Plt Count 203 MPV 11.5 Immature Gran % (Auto) 0.5 H Neut % (Auto) 71.7 Lymph % (Auto) 17.3 L [place] % (Auto) 10.3 Eos % (Auto) 0.1 Baso % (Auto) 0.1 Lymph # (Auto) 2.6 [place] # (Auto) 1.5 H Eos # (Auto) 0.0 Baso # (Auto) 0.0 Abs Immat Gran (auto) 0.08 H Absolute Neuts (auto) 10.7 H Absolute Nucleated RBC 0.000 Nucleated RBC % (auto) 0.0 Smear Tech's Comments VERIFIED Anion Gap 14 Estim Creat Clear Calc 120.2 Estimated GFR > 60 Fasting Glucose 112 H Calcium 9.1 Assessment and Plan (1) Hypertension: Status: Acute (2) Morbid obesity: Status: Acute Assessment and Plan: 56M presented for elective right hip arthroplasty s/p right hip arthroplasty pod1 management per orthopedics htn amlodipine 5mg daily will restart lisinopril hld statin morbid obesity continue weight loss Quality Stroke Does the patient have a stroke diagnosis?: No VTE Prior VTE?: No VTE Risk Level:: Surgical - very high VTE Device Contraindication: N/A - Device Ordered VTE Drug Contraindication: N/A - Med Ordered
[2021-04-19] MEDS: lisinopriL 40 MG TABLET PO (10:43)
[2021-04-19] MEDS: 0.9 % Sodium Chloride Flush 3 ML SYRINGE IVFLUSH (10:44)
[2021-04-19] MEDS: Aspirin 325 MG TABLET PO (10:44)
[2021-04-19 11:31] VITALS: BP 118/80; PULSE 90; RESP 17; TEMP 36.2; O2SAT 97
[2021-04-19 13:12] VITALS: BP 118/80; PULSE 90; O2SAT 97
--- NOTE | 2021-04-19 13:18 | PM.DS ---
DS: Providers Provider Date of Service: 04/19/21 Date of admission: 04/18/21 06:21 Primary care physician: FABI Oliva Consults: 04/18/21 11:39 Consult to Hospitalist Routine Consulting Provider: Hospitalist Reason For Exam: routine medical management DS: Diagnosis Discharge Diagnosis (1) S/P total hip arthroplasty: Status: Acute DS: Summary Hospital Course Hospital Course: Mr. Simon is a 56-year-old male who presented to the office with ongoing right hip pain. He was found to have osteoarthritis of the right hip. He tried and failed all conservative treatment options and continued to have pain and difficulty with ambulation and ADLs. Therefore, he consented to move forward with a right total hip arthroplasty. The patient underwent a successful right total hip arthroplasty, they were transferred to PACU and then to the floor to recover. During their stay, their vitals were stable, afebrile at 97.2. Labs were unremarkable, H/H 15.0/45.2. POD 1 they were started on Aspirin 325mg po bid for DVT ppx, they also received Physical Therapy services twice a day. Prior to discharge, their dressing was changed, incision clean dry and intact, new Aquacel dressing applied and the plan was to be discharged home with VNA services. Time Spent with Patient Time attestation: Total time spent providing and/or coordinating discharge services: Discharge coordination time: Less than 30 minutes Quality: Stroke Does the patient have a stroke diagnosis?: No Physical Exam Vital Signs: Vital Signs: Last Vital Signs Temp 97.2 F 04/19/21 11:31 Pulse 90 04/19/21 13:12 Resp 17 04/19/21 11:31 BP 118/80 04/19/21 13:12 Pulse Ox 97 04/19/21 13:12 Body Mass Index 41.4 Const: General: cooperative, healthy appearing and no acute distress Resp: Effort & Inspection: normal respiratory effort and able to speak in complete sentences Cardio: Rate: regular rate Peripheral pulses: Peripheral pulses 2+ throughout GI: Palpation (GI): Soft to palpation Skin: Lesions: no lesions Rashes: no rashes Extrem: Other: Right hip no erythema or drainage. Rg intact. New Aquacel dressing applied. Patient is able to plantar flex and dorsiflex. Sensation is intact. Pedal pulse intact. DS: Data Data Completed and Pending Pending studies at discharge: Pending at discharge 04/18/21 09:38 Surgical [PTH] Routine Labs on day of discharge: Laboratory Results - last 24 hr 04/19/21 04/19/21 05:31 05:31 WBC 15.0 H RBC 4.80 Hgb 15.0 Hct 45.2 MCV 94.2 MCH 31.3 MCHC 33.2 RDW 12.5 Plt Count 203 MPV 11.5 Immature Gran % (Auto) 0.5 H Neut % (Auto) 71.7 Lymph % (Auto) 17.3 L [place] % (Auto) 10.3 Eos % (Auto) 0.1 Baso % (Auto) 0.1 Lymph # (Auto) 2.6 [place] # (Auto) 1.5 H Eos # (Auto) 0.0 Baso # (Auto) 0.0 Abs Immat Gran (auto) 0.08 H Absolute Neuts (auto) 10.7 H Absolute Nucleated RBC 0.000 Nucleated RBC % (auto) 0.0 Smear Tech's Comments VERIFIED Sodium 137 Potassium 4.5 Chloride 100 Carbon Dioxide 28 Anion Gap 14 BUN 11 Creatinine 0.83 Estim Creat Clear Calc 120.2 Estimated GFR > 60 Fasting Glucose 112 H Calcium 9.1 Discharge Plan Discharge Patient Disposition: Home Health Service Discharge Diagnosis: s/p RTHA Referrals: Jason FRANK [Outside] - 1 Day (HOME PHYSICAL THERAPY) Alirio Iqbal FNP- [Primary Care Provider] - 1 Week Discharge Medications: New celecoxib 200 mg Capsule 200 mg PO BID 30 Days Qty: 60 RF: 0 acetaminophen 325 mg Tablet 650 mg PO Q6H PRN (Reason: Pain, Mild (Pain Scale 1-3)) 30 Days Qty: 240 RF: 0 aspirin 325 mg Tablet 325 mg PO BID 42 Days Qty: 84 RF: 0 docusate sodium 100 mg Capsule 100 mg PO BID 30 Days Qty: 60 RF: 0 oxycodone 5 mg Tablet 10 mg PO Q4H PRN (Reason: Pain, Moderate (Pain Scale 4-6) 7 Days Qty: 42 RF: 0 Continued gabapentin 100 mg capsule 100 mg PO TID Qty: 90 RF: 2 lisinopril 40 mg tablet 40 mg PO DAILY 90 Days Qty: 90 RF: 1 pravastatin 80 mg tablet 80 mg PO DAILY Qty: 90 RF: 1 tramadol 50 mg tablet 50 mg PO Q6H PRN (Reason: pain) 30 Days Qty: 120 RF: 0 celecoxib 100 mg capsule 100 mg PO BID Qty: 60 RF: 3 (DME) walker Misc See Rx Instructions .MEDSUPPLY Qty: 1 RF: 0 amlodipine 5 mg tablet 5 mg PO DAILY Qty: 30 RF: 2 vitamin E 400 unit Capsule 400 unit PO DAILY RF: 0 Zyrtec 10 mg Capsule 10 mg PO DAILY RF: 0 krill oil 500 mg Capsule PO RF: 0 ipratropium bromide 21 mcg (0.03 %) spray,non-aerosol 2 spray intranasal DAILY RF: 0 indomethacin 50 mg capsule 50 mg PO BID RF: 0 Discharge Orders: Discharge Order (Routine); Ordered 04/19/21 Ordered By: Jackie Hector Activity on Discharge: Use cane or walker Stand Alone Forms: Patient Portal Discharge page Care Plan Goals: Restore fxn to right hip Health Concerns: None Plan of Treatment: Physical Therapy for total hip arthroplasty: posterior precautions, gait training, ROM, strength Limit stair climbing No showering, no tub bath-keep dressing clean, dry and intact No driving x6 weeks Continue Lovenox tabs once a day x 4 weeks Follow up with [facility] in 2 weeks Assessment: stable for d/c Discharge Date/Time: 04/19/21 14:13
--- NOTE | 2021-04-19 13:33 | HO.POSTANES ---
Post Anesthesia Evaluation Post Anesthesia Evaluation Vital Signs: Vital Signs Temp Pulse Resp BP Pulse Ox 04/19/21 13:12 90 118/80 97 04/19/21 11:31 97.2 F 90 17 118/80 97 04/19/21 08:52 85 158/72 H 98 04/19/21 07:00 97.6 F 85 16 158/72 H 98 04/19/21 03:00 97.3 F 89 18 139/73 94 Anesthesia: General Mental Status: Awake Pain Control: Satisfactory Nausea/Vomiting: None Hydration: Adequate Anesthesia-Related Issues: No Anes. Related Issues
--- NOTE | 2021-04-19 14:12 | W.MHC.F2F ---
Service Date Service Date: 04/19/21 Reasons for Services Reason for physical therapy: home safety and mobility, therapeutic exercises, restore joint function, gait/transfer training, assess need for DME and ADL training Reason for occupational therapy: home safety and mobility, therapeutic exercises, restore joint function, gait/transfer training, assess need for DME and ADL training Homebound: Leaving the home is medically contraindicated at this time without the asist of a device and/or another person due th the listed conditions above and below. Reason homebound: unsteady gait / fall risk, leg weakness, pain with ambulation and unable to drive Homebound supporting statement: Pt. is considered homebound due to recent surgery. Unable to drive, poor balance, poor gait mechanics. Certification: Based on the above findings, I certify that this patient is confined to the home and needs intermittent chcf care, physical therapy and/or speech therapy, or continues to need occupational therapy. The patient is under my care, and I have initiated the establishment of the plan of care. The patient will be followed by a physician who will periodically review the plan of care.
--- NOTE | 2021-04-19 14:17 | MHC.CM.PN ---
PT DISCHARGED HOME W/[facility] FOR HOME PT, FRIEND FOR TRANSPORT.
--- NOTE | 2021-04-19 14:18 | MHC.CM.PN ---
EMR REVIEWED, PT ADMITTED S/P R DEBBIE, PT REPORTS HE LIVES ALONE HOWEVER [place] [employer] [employer] [place] [facility] CAN ASSIST IF PT HAS ANY NEEDS, PT REPORTS HAVING A 2 & 4 WHEELED WALKER, BEDSIDE COMMODE, SHOWER CHAIR, GRAB BARS IN BR BY WALK IN SHOWEVER AND TOILET, PT REPORTS HE'S HIRED A CLEANING LADY TO COME IN WHILE HE IS RECOVERING AND HAS NO OTHER HOME SERVICES. PT VERIFIES PCP ELINA SEXTON AND WAS GOING TO CONSIDER COMPLETING A HCP W/CM HOWEVER PT HAS DISCHARGED PRIOR TO COMPLETING IT. D/C PLAN: HOME W/[facility] FOR HOME PT, FRIEND FOR TRANSPORT.
== END 2021-04-19 14:13 | disposition home health service (06) | DRG 301 ==
LOC: HO.SSSA 06:22 → HO.S3 10:33
PROVIDERS: Physician Assistant; Admitting Provider Orthopaedic Surgery; PCP Nurse Practitioner Family; Visit Provider Orthopaedic Surgery
PROC: 0SR903A Replacement of Right Hip Joint with Ceramic Synthetic Substitute, Uncemented, Open Approach (ICD-10-PCS; CPT 27130; principal; 2021-04-18 07:30)
DX: M16.11 Unilateral primary osteoarthritis, right hip (principal); Z68.41 Body mass index [BMI] 40.0-44.9, adult; E66.01 Morbid (severe) obesity due to excess calories; E78.5 Hyperlipidemia, unspecified; F17.210 Nicotine dependence, cigarettes, uncomplicated; I10 Essential (primary) hypertension; Z20.822 Contact with and (suspected) exposure to COVID-19; Z79.899 Other long term (current) drug therapy
CPT/HCPCS: 27130; 36415; 72170; 80048; 81001; 81003; 85025; 86850; 86900; 86901; 87086; 87635; 87640; 87641; 88304; 88311; 97110; 97116; 97162; 97165; C1713; C1776; J0131; J0690; J1100; J1170; J2250; J2370; J2405; J3010

== ENCOUNTER → 2021-05-04 11:22 | Outpatient (BNVA) | payer OTHER, SELFPAY | PROVIDERS: Visit Provider Physician Assistant | DX: Z47.1 Aftercare following joint replacement surgery (principal); Z96.649 Presence of unspecified artificial hip joint | CPT/HCPCS: 99212 ==

== ENCOUNTER 2021-06-22 09:29 | Outpatient (REF) | payer OTHER, SELFPAY ==
--- NOTE | ~2021-06-22 | XR_ITS ---
EXAMINATION: XR PELVIS XR HIP, RIGHT CLINICAL INFORMATION: Pain in the hip COMPARISON: 04/18/2021 TECHNIQUE: AP view of the pelvis with 2 additional views of the right hip. FINDINGS: There are bilateral total hip arthroplasties. The femoral head components articulate appropriately with the acetabular components. No periprosthetic lucency or fracture. The pelvic rim is intact. The sacroiliac joints and pubic symphysis are intact. Normal bowel gas pattern. XR/XR pelvis 1-2V IMPRESSION: Bilateral total hip arthroplasties without evidence of failure.
--- NOTE | ~2021-06-22 | XR_ITS ---
EXAMINATION: XR PELVIS XR HIP, RIGHT CLINICAL INFORMATION: Pain in the hip COMPARISON: 04/18/2021 TECHNIQUE: AP view of the pelvis with 2 additional views of the right hip. FINDINGS: There are bilateral total hip arthroplasties. The femoral head components articulate appropriately with the acetabular components. No periprosthetic lucency or fracture. The pelvic rim is intact. The sacroiliac joints and pubic symphysis are intact. Normal bowel gas pattern. XR/XR hip RT 1V IMPRESSION: Bilateral total hip arthroplasties without evidence of failure.
== END 2021-06-22 09:30 | disposition home or self-care (01) ==
LOC: HO.HOSX 09:29
PROVIDERS: Visit Provider Orthopaedic Surgery
DX: M25.562 Pain in left knee (principal); Z96.641 Presence of right artificial hip joint; F17.210 Nicotine dependence, cigarettes, uncomplicated
CPT/HCPCS: 20610; 72170; 73501; 99212; J1100

== ENCOUNTER 2021-07-12 07:46 | Outpatient (REF) | payer OTHER, SELFPAY ==
[2021-07-12 11:41] LABS: Appearance Urine CLEAR; Color Urine YELLOW; Glucose Urine UA NEG (NEG); Leukocyte Esterase Urine NEG (NEG); Nitrite Urine NEG (NEG); Specific Gravity - Urine 1.015 (1.005-1.025); UACC Culture Trigger NO; Urine Blood TRACE (NEG); Urine Ketones NEG (NEG); Urine Protein NEG (NEG-TRACE)
[2021-07-12 12:15] LABS: Squamous Epithelial Cell Urine 1+ /LPF; WBC Urine 0 /HPF (0-4)
[2021-07-12 12:17] LABS: Alanine Aminotransferase 27 U/L (0-40); Albumin Level 4.6 g/dL (3.5-5.0); Alkaline Phosphatase 78 U/L (39-117); Anion Gap 13 (12-20); Aspartate Amino Transferase 22 U/L (5-37); Bilirubin Total 0.8 mg/dL (0.0-1.0); Blood Urea Nitrogen 14 mg/dL (9-16); Calcium 9.8 mg/dL (8.4-10.2); Carbon Dioxide 29 mmol/L (22-29); Chloride 101 mmol/L (96-108); Cholesterol 221 mg/dL; Estimated Glomerular Filt Rate > 60; Glucose Fasting 94 mg/dL (60-99); HDL Cholesterol 52 mg/dL; LDL Cholesterol Calculated 144 mg/dl; Potassium 4.5 mmol/L (3.3-5.1); Sodium 138 mmol/L (135-145); Triglycerides 126 mg/dL
== END 2021-07-12 07:47 | disposition home or self-care (01) ==
LOC: HO.HMGCLDS 07:46
PROVIDERS: PCP Nurse Practitioner Family; Visit Provider Nurse Practitioner Family
DX: I10 Essential (primary) hypertension (principal)
CPT/HCPCS: 36415; 80053; 80061; 81001; 84443

== ENCOUNTER 2021-09-24 08:35 | Outpatient (REF) | payer OTHER, SELFPAY ==
--- NOTE | ~2021-09-24 | XR_ITS ---
EXAMINATION: XR KNEE, LEFT XR KNEE STANDING, BILATERAL CLINICAL INFORMATION: Pain. COMPARISON: None TECHNIQUE: Standing AP view of both knees and lateral and sunrise view of the left knee. FINDINGS: LEFT KNEE: Bone alignment is normal. No fracture or dislocation is seen. There are osteophytes at the patellofemoral joint. There is no joint effusion. There is soft tissue arterial calcification. Standing AP view of the right knee is unremarkable. XR/XR knee LT 2V IMPRESSION: Left knee: Small osteophytes at the patellofemoral joint. Severe atherosclerotic disease.
--- NOTE | ~2021-09-24 | XR_ITS ---
EXAMINATION: XR KNEE, LEFT XR KNEE STANDING, BILATERAL CLINICAL INFORMATION: Pain. COMPARISON: None TECHNIQUE: Standing AP view of both knees and lateral and sunrise view of the left knee. FINDINGS: LEFT KNEE: Bone alignment is normal. No fracture or dislocation is seen. There are osteophytes at the patellofemoral joint. There is no joint effusion. There is soft tissue arterial calcification. Standing AP view of the right knee is unremarkable. XR/XR knee standing BI IMPRESSION: Left knee: Small osteophytes at the patellofemoral joint. Severe atherosclerotic disease.
== END 2021-09-24 08:36 | disposition home or self-care (01) ==
LOC: HO.HOSX 08:35
PROVIDERS: Visit Provider Orthopaedic Surgery
DX: M17.12 Unilateral primary osteoarthritis, left knee (principal); Z96.641 Presence of right artificial hip joint
CPT/HCPCS: 73560; 73565; 99212

== ENCOUNTER 2021-09-28 10:51 | Outpatient (REF) | payer OTHER, SELFPAY ==
[2021-09-28 16:45] LABS: Urine Cytology See Pathology rpt
== END 2021-09-28 10:52 | disposition home or self-care (01) ==
LOC: HO.LAB 10:51
PROVIDERS: PCP Nurse Practitioner Family
DX: R31.29 Other microscopic hematuria (principal)
CPT/HCPCS: 88112; 99202

== ENCOUNTER → 2021-11-06 09:22 | Outpatient (BNVA) | payer OTHER, SELFPAY | PROVIDERS: PCP Nurse Practitioner Family | DX: Z12.5 Encounter for screening for malignant neoplasm of prostate (principal); R31.29 Other microscopic hematuria | CPT/HCPCS: 99212 ==

== ENCOUNTER → 2021-11-08 08:22 | Outpatient (BNVA) | payer OTHER, SELFPAY | PROVIDERS: PCP Nurse Practitioner Family; Visit Provider Orthopaedic Surgery | DX: M17.12 Unilateral primary osteoarthritis, left knee (principal) | CPT/HCPCS: 20610; 99212; J1100 ==

== ENCOUNTER 2022-02-12 10:54 | Outpatient (REF) | payer OTHER, SELFPAY ==
[2022-02-12 17:02] LABS: Urine Cytology See Pathology rpt
== END 2022-02-12 10:55 | disposition home or self-care (01) ==
LOC: HO.LAB 10:54
PROVIDERS: PCP Nurse Practitioner Family; Visit Provider Urology
DX: R31.29 Other microscopic hematuria (principal)
CPT/HCPCS: 52000; 88112

== ENCOUNTER 2022-02-12 10:54 | Outpatient (AMB) | payer OTHER, SELFPAY ==
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
== END 2022-02-12 11:45 | disposition home or self-care (01) ==
LOC: HO.HUSH 10:54
PROVIDERS: PCP Nurse Practitioner Family; Visit Provider Urology
DX: R31.29 Other microscopic hematuria (principal)
CPT/HCPCS: 52000; 99213

== ENCOUNTER 2022-02-18 07:31 | Outpatient (REF) | payer OTHER, SELFPAY ==
[2022-02-18 11:26] LABS: MANUAL DIFF FLAG NO
[2022-02-18 11:36] LABS: Basophils Absolute Auto 0.1 X10*3/uL (0.0-0.2); Basophils Percent Auto 0.7 % (0-2); Eosinophils Absolute Auto 0.3 X10*3/uL (0.0-0.4); Eosinophils Percent Auto 3.4 % (0-4); Hematocrit 48.5 % (42.0-52.0); Hemoglobin 16.4 g/dl (14.0-18.0); Imm Gran Abs Auto 0.03 X10*3/uL (0.00-0.03); Imm Gran Pct Auto 0.4 % (0.0-0.4); Lymphocytes Absolute Auto 2.4 X10*3/uL (1.2-4.9); Lymphocytes Percent Auto 32.9 % (20-40); Mean Corpuscular HGB Conc 33.8 g/dl (31.0-36.0); Mean Corpuscular Hemoglobin 31.2 pg (27.0-33.0); Mean Corpuscular Volume 92.2 fL (80.0-98.0); Mean Platelet Volume 11.2 fL (9.4-12.4); Monocytes Absolute Auto 0.7 X10*3/uL (0.1-1.2); Monocytes Percent Auto 8.8 % (2-11); Neutrophils Percent Auto 53.8 % (45-73); Platelet Count 203 X10*3/uL (160-400); Red Blood Count 5.26 X10*6/uL (4.60-5.80); Red Cell Distribution Width 12.8 % (11.0-16.0); White Blood Count 7.4 X10*3/uL (4.8-10.8)
[2022-02-18 11:37] LABS: Appearance Urine CLEAR; Color Urine YELLOW; Glucose Urine UA NEG (NEG); Leukocyte Esterase Urine NEG (NEG); Nitrite Urine NEG (NEG); UACC Culture Trigger NO; Urine Blood 1+ (NEG); Urine Ketones NEG (NEG); Urine Protein NEG (NEG-TRACE)
[2022-02-18 11:52] LABS: Squamous Epithelial Cell Urine TRACE /LPF; WBC Urine 0 /HPF (0-4)
[2022-02-18 12:06] LABS: Alanine Aminotransferase 24 U/L (0-40); Albumin Level 4.5 g/dL (3.5-5.0); Alkaline Phosphatase 68 U/L (39-117); Anion Gap 13 (12-20); Aspartate Amino Transferase 19 U/L (5-37); Bilirubin Total 0.6 mg/dL (0.0-1.0); Blood Urea Nitrogen 12 mg/dL (9-16); Calcium 9.1 mg/dL (8.4-10.2); Carbon Dioxide 27 mmol/L (22-29); Chloride 101 mmol/L (96-108); Cholesterol 165 mg/dL; Estimated Glomerular Filt Rate > 60; Glucose Fasting 111 mg/dL (60-99); HDL Cholesterol 50 mg/dL; LDL Cholesterol Calculated 96 mg/dl; Potassium 4.3 mmol/L (3.3-5.1); Sodium 137 mmol/L (135-145); Triglycerides 99 mg/dL
[2022-02-18 12:07] LABS: Prostate Specific Antigen 0.28 ng/mL (<0.05-4.0)
[2022-02-18 12:19] LABS: Folate 15.3 ng/mL (> or = 4.0); Vitamin B12 242 pg/mL (200-900)
== END 2022-02-18 07:32 | disposition home or self-care (01) ==
LOC: HO.HMGCLDS 07:31
PROVIDERS: PCP Nurse Practitioner Family; Visit Provider Nurse Practitioner Family
DX: Z12.5 Encounter for screening for malignant neoplasm of prostate (principal); I10 Essential (primary) hypertension
CPT/HCPCS: 36415; 80053; 80061; 81001; 82607; 82746; 84153; 84443; 85025

== ENCOUNTER 2022-08-06 11:03 | Outpatient (REF) | payer OTHER, SELFPAY ==
--- NOTE | ~2022-08-06 | US_ITS ---
EXAMINATION: US RETROPERITONEAL LIMITED (RENAL ONLY) CLINICAL INFORMATION: Other microscopic hematuria. COMPARISON: Ultrasound abdomen complete 12/25/2015. TECHNIQUE: Real-time imaging of the kidneys. FINDINGS: RIGHT KIDNEY: 12.2 x 6.1 x 7.2 cm (SAG x AP x TRV). The kidney is normal in size, contour, and echogenicity. Renal cortical thickness is normal. No calculi or focal parenchymal lesions. No hydronephrosis. LEFT KIDNEY: 13.0 x 5.3 x 4.9 cm (SAG x AP x TRV). The kidney is normal in size, contour, and echogenicity. Renal cortical thickness is normal. No calculi or focal parenchymal lesions. No hydronephrosis. US/US renal BI IMPRESSION: Unremarkable renal ultrasound.
== END 2022-08-06 11:04 | disposition home or self-care (01) ==
LOC: HO.HMGCX 11:03
PROVIDERS: PCP Nurse Practitioner Family; Visit Provider Urology
DX: R31.29 Other microscopic hematuria (principal)
CPT/HCPCS: 76775

== ENCOUNTER 2022-09-06 06:41 | Outpatient (REF) | payer OTHER, SELFPAY ==
[2022-09-06 11:25] LABS: Appearance Urine Clear; Color Urine Dark Yellow; Glucose Urine UA Negative (Negative); Leukocyte Esterase Urine Negative (Negative); Nitrite Urine Negative (Negative); UMIC TRIGGER UACC YES; Urine Blood Trace (Negative); Urine Ketones Negative (Negative); Urine Protein Negative (Neg-Trace)
[2022-09-06 11:28] LABS: Bacteria Urine None Seen (None Seen); Hyaline Casts Urine 0-2 /LPF (0-2); Squamous Epithelial Cell Urine 0-2 /HPF (0-2); WBC Urine 0-5 /HPF (0-5)
[2022-09-06 11:43] LABS: MANUAL DIFF FLAG NO
[2022-09-06 11:59] LABS: Basophils Absolute Auto 0.1 X10*3/uL (0.0-0.2); Basophils Percent Auto 0.7 % (0-2); Eosinophils Absolute Auto 0.2 X10*3/uL (0.0-0.4); Eosinophils Percent Auto 2.9 % (0-4); Hematocrit 47.8 % (42.0-52.0); Hemoglobin 15.9 g/dl (14.0-18.0); Imm Gran Abs Auto 0.04 X10*3/uL (0.00-0.03); Imm Gran Pct Auto 0.5 % (0.0-0.4); Lymphocytes Absolute Auto 2.5 X10*3/uL (1.2-4.9); Lymphocytes Percent Auto 30.2 % (20-40); Mean Corpuscular HGB Conc 33.3 g/dl (31.0-36.0); Mean Corpuscular Hemoglobin 30.9 pg (27.0-33.0); Mean Corpuscular Volume 92.8 fL (80.0-98.0); Monocytes Absolute Auto 0.7 X10*3/uL (0.1-1.2); Monocytes Percent Auto 8.1 % (2-11); Neutrophils Absolute Auto 4.7 x10*3/uL (2.0-8.3); Neutrophils Percent Auto 57.6 % (45-73); Platelet Count 193 X10*3/uL (160-400); Red Blood Count 5.15 X10*6/uL (4.60-5.80); Red Cell Distribution Width 13.2 % (11.0-16.0); White Blood Count 8.2 X10*3/uL (4.8-10.8)
[2022-09-06 12:20] LABS: Alanine Aminotransferase 19 U/L (0-40); Albumin Level 4.2 g/dL (3.5-5.0); Alkaline Phosphatase 64 U/L (39-117); Anion Gap 13 (12-20); Aspartate Amino Transferase 18 U/L (5-37); Bilirubin Total 0.7 mg/dL (0.0-1.0); Blood Urea Nitrogen 12 mg/dL (9-16); Calcium 9.3 mg/dL (8.4-10.2); Carbon Dioxide 29 mmol/L (22-29); Chloride 100 mmol/L (96-108); Cholesterol 150 mg/dL; Estimated Glomerular Filt Rate > 60; Glucose Fasting 115 mg/dL (60-99); HDL Cholesterol 40 mg/dL; Iron 91 mcg/dL (45-160); LDL Cholesterol Calculated 90 mg/dl; Percent Iron Saturation 30 % (15-50); Potassium 4.3 mmol/L (3.3-5.1); Sodium 138 mmol/L (135-145); Total Iron Binding Capacity 299 mcg/dL (228-428); Total Protein 6.5 g/dL (6.5-8.0); Triglycerides 103 mg/dL; Unsaturated Iron Binding 208 ug/dL
[2022-09-06 12:57] LABS: Ferritin 247 ng/mL (20-250); Folate 6.6 ng/mL (> or = 4.0); TSH reflex Free T4 1.78 uIU/mL (0.32-4.0); Vitamin B12 301 pg/mL (200-900)
== END 2022-09-06 06:42 | disposition home or self-care (01) ==
LOC: HO.HMGCLDS 06:41
PROVIDERS: PCP Nurse Practitioner Family; Visit Provider Nurse Practitioner Family
DX: F32.9 Major depressive disorder, single episode, unspecified (principal); R53.83 Other fatigue
CPT/HCPCS: 36415; 80053; 80061; 81001; 82607; 82728; 82746; 83540; 84443; 85025

== ENCOUNTER 2022-10-22 09:38 | Outpatient (REF) | payer OTHER, SELFPAY ==
--- NOTE | ~2022-10-22 | XR_ITS ---
EXAMINATION: XR SHOULDER, LEFT XR SHOULDER, RIGHT CLINICAL INFORMATION: Pain. COMPARISON: None available. TECHNIQUE: 4 views of the left shoulder. 4 views of the right shoulder. FINDINGS: Four views of the left shoulder demonstrate degeneration at the glenohumeral articulation with bony spurring inferior. There is also ill-definition of the bone at the insertion of the superior rotator cuff. There is iieb-kg-[id number] degeneration at the AC joint and acromial spurring is seen. There is no evidence for an acute fracture or dislocation. Four views of the right shoulder demonstrate more mild degeneration in the inferior glenohumeral articulation. There is, however, irregularity and bony eburnation at the insertion of the superior rotator cuff on the humerus and moderate AC joint degeneration. There is also acromial spurring. There is no acute fracture or dislocation. XR/XR shoulder RT min 2V IMPRESSION: Moderate bordering marked degenerative changes bilaterally, as described above.
--- NOTE | ~2022-10-22 | XR_ITS ---
EXAMINATION: XR SHOULDER, LEFT XR SHOULDER, RIGHT CLINICAL INFORMATION: Pain. COMPARISON: None available. TECHNIQUE: 4 views of the left shoulder. 4 views of the right shoulder. FINDINGS: Four views of the left shoulder demonstrate degeneration at the glenohumeral articulation with bony spurring inferior. There is also ill-definition of the bone at the insertion of the superior rotator cuff. There is ikcq-fz-csbfwrxw degeneration at the AC joint and acromial spurring is seen. There is no evidence for an acute fracture or dislocation. Four views of the right shoulder demonstrate more mild degeneration in the inferior glenohumeral articulation. There is, however, irregularity and bony eburnation at the insertion of the superior rotator cuff on the humerus and moderate AC joint degeneration. There is also acromial spurring. There is no acute fracture or dislocation. XR/XR shoulder LT min 2V IMPRESSION: Moderate bordering marked degenerative changes bilaterally, as described above.
== END 2022-10-22 09:39 | disposition home or self-care (01) ==
LOC: HO.HMGCX 09:38
PROVIDERS: PCP Nurse Practitioner Family; Visit Provider Nurse Practitioner Family
DX: M25.511 Pain in right shoulder (principal); M25.512 Pain in left shoulder
CPT/HCPCS: 73030

== ENCOUNTER 2023-02-18 10:00 | Outpatient (RCR) | payer OTHER, SELFPAY ==
--- NOTE | 2023-01-01 16:35 | MHC.PT.EP ---
[facility] [place] Office [place] Office [place] Office [address] [phone] F: [phone] F: [phone] F: [phone] F: [phone] Physical Therapy Plan of Care Date of Evaluation: Date of Surgery: Diagnosis: BILATERAL shoulder pain (MD Dx) BILATERAL shoulder subacromial impingement syndrome, questionable R RTC tear, cervical radiculopathy (PT Dx) Assessment: Patient is a 57 y.o. male who is referred to PT by GARRY Valle, with Dx of BILATERAL shoulder pain. PT diagnosis is BILATERAL shoulder subacromial impingement syndrome, questionable R RTC tear, cervical radiculopathy. He may benefit from imaging to cervical spine to rule in/out cervical component due to radicular UE relief with manual cervical traction test and MRI for shoulder to rule in/out RTC tears. 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 Patient will benefit from skilled PT to address aforementioned impairments and functional limitations to meet established goals. Frequency and Duration: The patient will be seen 2x/week for 4 weeks Short Term Goals: 2 weeks Patient demonstrates consistency and independence with HEP to self manage symptoms. Patient is able to centralize UE radicular sxs with exercise program and postural changes. Prop Maker Goals: 4 weeks Patient presents with increased R shoulder AROM 60 degrees to be able to reach behind back for lower body dressing. Patient presents with increased bilateral shoulder flexion AROM 4+/5 to be able to reach overhead to high cabinets with light object. Treatment Plan: Modalities to reduce pain, spasms and effusion. Manual therapy to restore motion and function. Therapeutic exercise to improve strength and flexibility. Neuromuscular re-education for posture and balance. Therapeutic activities to return to functional activities of daily living. Electronically signed by: Heather Weiss, PT, DPT Please sign and return to therapist. Thank you for your referral.
--- NOTE | 2023-04-24 10:28 | MHC.PT.DC ---
[facility] [place] Office [place] Office [place] Office [address] [phone] F: [phone] F: [phone] F: [phone] F: [phone] Physical Therapy Discharge Report Diagnosis: BILATERAL shoulder pain (MD Dx) BILATERAL shoulder subacromial impingement syndrome, questionable R RTC tear, cervical radiculopathy (PT Dx) Date of Surgery: Date of Evaluation: 01/01/23 Date of Discharge: 02/18/23 Treatments to Date: 11 Cancellations to Date: No Shows to Date: Discharge Status: Independent with HEP Patient Elected to Stop Discharge Summary: Patient was last treated for PT on 02/18/23. He elected to stop PT on his own accord as he had visit with ortho scheduled 03/13/23. He received PT interventions for both shoulders and cervical spine. He is independent with HEP, notes improved ROM in his shoulder but pain and weakness persist as well as radicular sxs to hands. He does report centralization of UE symptoms with use of traction but that symptoms return a few hours later. Patient is a good candidate for further imaging. He is discharged from PT at this time. Electronically signed by: Heather Weiss, PT, DPT Please sign and return to therapist. Thank you for your referral.
== END 2023-04-24 10:27 | disposition home or self-care (01) ==
LOC: HO.PT 10:00
PROVIDERS: PCP Nurse Practitioner Family; Visit Provider Nurse Practitioner Family
DX: M25.511 Pain in right shoulder (principal); M25.512 Pain in left shoulder
CPT/HCPCS: 97012; 97110; 97112; 97140; 97161

== ENCOUNTER 2023-03-13 12:06 | Outpatient (AMB) | payer OTHER, SELFPAY ==
--- NOTE | 2023-03-13 12:08 | A.OFFVIS_ITS ---
Intake Intake Visit Reasons: Pain Left shoulder Intake Note: Hans is a 58 year old 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 male who presents today as a new patient with complaints of bilateral shoulder pain. He has started physical therapy. Patient reports that the left shoulder is more painful than the right. He has numbness of the fingertips. Pain with overhead movements and lifting. Allergies No Known Allergies Allergy (Verified 10/22/22 09:10) HPI Pain Left shoulder HPI Details Hans is a 58 year old man who presents with complaints primarily of left shoulder pain. He has known left knee OA and a hx of right DEBBIE He complains of pain with daily activity, worse with overhead motion & lifting activities, and at night. He has started PT, with some relief. He complains of worsening pain in his left knee with activity. He complains of pain in his neck and back, as well as numbness that radiates from his neck down into his hand. He has a hx of Carpal tunnel syndrome. [facility] Medical History Ankle fracture, left Gout HLD (hyperlipidemia) Hypertension Morbid obesity Primary osteoarthritis of right hip Rupture of right biceps tendon Surgical History H/O colonoscopy H/O right wrist surgery History of carpal tunnel repair History of left hip replacement Family History Father COPD (chronic obstructive pulmonary disease) Cancer Hypertension Substance abuse Mother COPD (chronic obstructive pulmonary disease) Hypertension Substance abuse Social History Housing: House Are you a primary director day care center to a significant other at home: No Do you presently have visiting nurse or other home services: No Patient Tobacco Use Status: Current everyday Tobacco user Tobacco use type: Cigarette Cigarettes Per Day: 2 Years Smoked: 15 e-Cigarette/Vaping Use: Currently Using Second Hand Smoke Exposure: No Substance Use Type: Marijuana service: No Current occupational status: employed Current occupation: [employer] Current occupational exposures/hazards: No Cognitive needs: No Hearing needs: No Vision needs: No Review of Systems Const All systems reviewed & are unremarkable except as noted in HPI and below Physical Exam Const General: no acute distress, alert and awake Orientation/consciousness: patient oriented x3 HEENT Head: Yes normocephalic and Yes atraumatic Eyes EOM: EOMs intact bilaterally Resp Effort & Inspection: normal respiratory effort and able to speak in complete sentences Cardio Jugular venous distension: no JVD Skin General skin exam: turgor normal Rashes: no rashes Neuro General: patient oriented x3 Extrem Other: Left Shoulder: Mild 4+/5 weakness with empty can test + H&N Psych Appearance: grossly normal Affect: normal affect Attitude: cooperative Office Procedures Joint Injection/Drain Joint Injection/Drain Details: Injected 1 mL of Decadron and 3 mL 1% lidocaine and 3 mL of 0.25% Marcaine. Site was prepped using aseptic technique. Patient tolerated the procedure well. Primary Site: left shoulder Approach Used: posterolateral Coding 04956 - Large joint Procedure code (CPT) selection complete Results Reviewed Results Reviewed: 03/13/23 12:38 Lidocaine HCl 2 % MPF [Xylocaine 2 % MPF] 5 ml .ROUTE .STK-MED ONE 03/13/23 12:39 BUPivacaine MPF 0.25 % [Sensorcaine-MPF 0.25% 10 ML] 10 ml .ROUTE .STK-MED ONE dexAMETHasone sod phosphate [Decadron] 4 mg .ROUTE .STK-MED ONE I personally reviewed relevant radiographs. Moderate bordering marked degenerative changes bilaterally, Assessment & Plan Assessment & Plan (1) Impingement of left shoulder: Code(s): M25.812 - Other specified joint disorders, left shoulder Plan: This is a 58 year old man with left shoulder impingement. He has pain with daily activity, worse with overhead reaching & lifting activities, and at night. He denies any prior injections and is currently attending PT with some relief. I discussed his diagnosis and treatment options. I injected his left shoulder today, which he tolerated well, and recommend he continue with his PT, work on weight management, and limit/avoid any heavy lifting or overhead activities. He will follow up in 3 months, if his symptoms persist we may consider an MRI. (2) Cervical radiculopathy: Code(s): M54.12 - Radiculopathy, cervical region Plan: Neck pain and numbness radiating down his left arm into his hand, along with pain & numbness affecting his back. If his symptoms persist or worsen he can contact the clinic for a referral to Pain Management. (3) Patellofemoral arthritis of left knee: Code(s): M17.12 - Unilateral primary osteoarthritis, left knee Plan: Pain with activity. I recommend activity modification and weight management. He can follow up prn Plan Scribed for Juan Carlos Jauregui MD by Davis Damon, medical laboratory technologist, on 03/13/23 at 12:50 PM, EST. Coding Level of Care Code Est Pt Level 4 (45796) Diagnoses Impingement of left shoulder M25.812 Cervical radiculopathy M54.12 Patellofemoral arthritis of left knee M17.12 CPT Codes Coding - 34194 Large joint: 08132 - Large joint ([id number])
== END 2023-03-13 13:11 | disposition home or self-care (01) ==
PROVIDERS: PCP Nurse Practitioner Family; Visit Provider Orthopaedic Surgery
DX: M25.812 Other specified joint disorders, left shoulder (principal); M54.12 Radiculopathy, cervical region; M17.12 Unilateral primary osteoarthritis, left knee
CPT/HCPCS: 20610; 99214

== ENCOUNTER → 2023-03-13 12:06 | Outpatient (BNVA) | payer OTHER, SELFPAY | PROVIDERS: PCP Nurse Practitioner Family; Visit Provider Orthopaedic Surgery | DX: M25.812 Other specified joint disorders, left shoulder (principal); M54.12 Radiculopathy, cervical region; M17.12 Unilateral primary osteoarthritis, left knee | CPT/HCPCS: 20610; 99212; J1100 ==

== ENCOUNTER 2023-06-04 06:10 | Outpatient (REF) | payer OTHER, SELFPAY ==
[2023-06-04 11:20] LABS: MANUAL DIFF FLAG NO
[2023-06-04 11:26] LABS: Appearance Urine Clear; Color Urine Yellow; Glucose Urine UA Negative (Negative); Leukocyte Esterase Urine Negative (Negative); Nitrite Urine Negative (Negative); UMIC TRIGGER UACC YES; Urine Blood Trace (Negative); Urine Ketones Negative (Negative); Urine Protein Negative (Neg-Trace)
[2023-06-04 11:31] LABS: Bacteria Urine None Seen (None Seen); Hyaline Casts Urine 0-2 /LPF (0-2); Squamous Epithelial Cell Urine 0-2 /HPF (0-2); WBC Urine 0-5 /HPF (0-5)
[2023-06-04 11:47] LABS: Alanine Aminotransferase 20 U/L (0-40); Albumin Level 4.3 g/dL (3.5-5.0); Alkaline Phosphatase 73 U/L (39-117); Anion Gap 13 (12-20); Aspartate Amino Transferase 17 U/L (5-37); Bilirubin Total 0.5 mg/dL (0.0-1.0); Blood Urea Nitrogen 13 mg/dL (9-16); Calcium 9.3 mg/dL (8.4-10.2); Carbon Dioxide 30 mmol/L (22-29); Chloride 99 mmol/L (96-108); Cholesterol 156 mg/dL (<200); Estimated Glomerular Filt Rate > 60; Glucose Fasting 124 mg/dL (60-99); HDL Cholesterol 39 mg/dL (>40); LDL Cholesterol Calculated 96 mg/dL (<100); Potassium 3.8 mmol/L (3.3-5.1); Sodium 138 mmol/L (135-145); Total Protein 6.9 g/dL (6.5-8.0); Triglycerides 108 mg/dL (<150)
[2023-06-04 12:02] LABS: Prostate Specific Antigen Scr 1.07 ng/mL (<0.05-4.0)
[2023-06-04 12:06] LABS: Basophils Absolute Auto 0.1 X10*3/uL (0.0-0.2); Basophils Percent Auto 0.7 % (0-2); Eosinophils Absolute Auto 0.2 X10*3/uL (0.0-0.4); Eosinophils Percent Auto 2.9 % (0-4); Hematocrit 47.5 % (42.0-52.0); Hemoglobin 15.8 g/dl (14.0-18.0); Imm Gran Abs Auto 0.04 X10*3/uL (0.00-0.03); Imm Gran Pct Auto 0.5 % (0.0-0.4); Lymphocytes Absolute Auto 2.2 X10*3/uL (1.2-4.9); Lymphocytes Percent Auto 27.2 % (20-40); Mean Corpuscular HGB Conc 33.3 g/dl (31.0-36.0); Mean Corpuscular Hemoglobin 30.6 pg (27.0-33.0); Mean Corpuscular Volume 92.1 fL (80.0-98.0); Mean Platelet Volume 11.3 fL (9.4-12.4); Monocytes Absolute Auto 0.7 X10*3/uL (0.1-1.2); Monocytes Percent Auto 8.1 % (2-11); Neutrophils Percent Auto 60.6 % (45-73); Platelet Count 199 X10*3/uL (160-400); Red Blood Count 5.16 X10*6/uL (4.60-5.80); Red Cell Distribution Width 12.9 % (11.0-16.0); White Blood Count 8.2 X10*3/uL (4.8-10.8)
[2023-06-04 12:14] LABS: TSH reflex Free T4 1.83 uIU/mL (0.32-4.0)
== END 2023-06-04 06:11 | disposition home or self-care (01) ==
LOC: HO.HMGCLDS 06:10
PROVIDERS: PCP Nurse Practitioner Family; Visit Provider Nurse Practitioner Family
DX: Z00.00 Encounter for general adult medical examination without abnormal findings (principal); Z12.5 Encounter for screening for malignant neoplasm of prostate
CPT/HCPCS: 36415; 80053; 80061; 81001; 84153; 84443; 85025

== ENCOUNTER 2023-06-17 15:17 | Outpatient (AMB) | payer OTHER, SELFPAY ==
--- NOTE | 2023-06-17 15:25 | A.OFFVIS_ITS ---
Intake Intake Visit Reasons: Hypertension Allergies No Known Allergies Allergy (Verified 10/22/22 09:10) PFS Medical History Ankle fracture, left Gout HLD (hyperlipidemia) Hypertension Morbid obesity Primary osteoarthritis of right hip Rupture of right biceps tendon Surgical History H/O colonoscopy H/O right wrist surgery History of carpal tunnel repair History of left hip replacement Family History Father COPD (chronic obstructive pulmonary disease) Cancer Hypertension Substance abuse Mother COPD (chronic obstructive pulmonary disease) Hypertension Substance abuse Social History Housing: House Are you a primary health care / medical job titles to a significant other at home: No Do you presently have visiting nurse or other home services: No Patient Tobacco Use Status: Current everyday Tobacco user Tobacco use type: Cigarette Cigarettes Per Day: 2 Years Smoked: 15 e-Cigarette/Vaping Use: Currently Using Second Hand Smoke Exposure: No Substance Use Type: Marijuana service: No Current occupational status: employed 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
[2023-06-17 15:27] VITALS: BP 114/80; PULSE 74; O2SAT 96; BMI 47.0
--- NOTE | 2023-06-17 15:28 | MHC.PC.OV ---
Vital Signs 06/17/23 15:27 Height 5 ft 7 in Weight 300 lb BMI 47.0 BP 114/80 Blood Pressure Location Rt brachial Position Sitting Pulse 74 Pulse Source Pulse Oximeter Pulse Oximetry (%) 96 Oxygen Delivery Method Room Air Intake Visit Reasons: Hypertension Allergies No Known Allergies Allergy (Verified 06/17/23 15:28) Medication List - Last Reconciled 06/17/23 by FABI Shaw amlodipine 5 mg PO DAILY celecoxib 200 mg PO BID cetirizine (Zyrtec) 10 mg PO DAILY gabapentin 100 mg PO TID garlic 400 mg PO DAILY indomethacin 50 mg PO BID ipratropium bromide 2 sprays intranasal DAILY 90 days krill oil mg PO lisinopril 40 mg PO DAILY 90 days nicotine (polacrilex) 4 mg buccal Q2H rosuvastatin 40 mg PO DAILY 90 days sertraline 50 mg PO DAILY vitamin E 400 units PO DAILY walker Folding Front wheeled walker Tobacco use date assessed: 10/22/22 HPI Hypertension HPI Details HTN: Blood pressure is stable, managed with amlodipine 5mg and lisinopril 40mg. Denies chest pain, shortness of breath, headache, dizziness, and blurred vision. Pt's last fasting blood sugar was elevated at 124. Educated pt on proper diet and portion sizes. Denies polyuria, polydipsia, and neuropathy. Pt sees a psychiatrist once a month. Denies any SI and HI. Pt has been a PPD smoker since age 28. Will refer for low-dose lung CT. [facility]LY [facility], [facility] Medical History HLD (hyperlipidemia) Ankle fracture, left Morbid obesity Hypertension Primary osteoarthritis of right hip Gout Rupture of right biceps tendon Surgical History History of carpal tunnel repair H/O colonoscopy H/O right wrist surgery History of left hip replacement Family History Father COPD (chronic obstructive pulmonary disease) Cancer Hypertension Substance abuse Mother COPD (chronic obstructive pulmonary disease) Hypertension Substance abuse Social History Housing: House Are you a primary rn palliative care to a significant other at home: No Do you presently have visiting nurse or other home services: No Patient Tobacco Use Status: Current everyday Tobacco user Tobacco use type: Cigarette Cigarettes Per Day: 2 Years Smoked: 15 e-Cigarette/Vaping Use: Currently Using Second Hand Smoke Exposure: No Substance Use Type: Marijuana service: No Current occupational status: employed Current occupation: [employer] Current occupational exposures/hazards: No Cognitive needs: No Hearing needs: No Vision needs: No Questionnaire Thrive Questionnaire Date Thrive assessed: 10/30/21 AISHA-7 AMB Questionnaire AISHA-7 Date AISHA - 7 assessed: 10/30/21 Source: Developed by Drs. Kevin Grant, Gemini Collazo, Marcello Pinzon and colleagues, with an educational cara from [employer]. Review of Systems Const Reports as per HPI Physical exam (Primary Care) Vital Signs: Last Vital Signs Pulse 74 06/17/23 15:27 BP 114/80 06/17/23 15:27 Pulse Ox 96 06/17/23 15:27 Oxygen Delivery Method Room Air 06/17/23 15:27 BMI result Body Mass Index 47.0 Tobacco/Smoking Status: Tobacco use Status Tobacco use date assessed 10/22/22 06/17/23 15:30 Patient Tobacco Use Status Current everyday Tobacco 06/17/23 15:30 Tobacco use type Cigarette 06/17/23 15:30 e-Cigarette/Vaping Use Currently Using 06/17/23 15:30 Thrive Assessment: Date of Thrive Assessment Date Thrive assessed 10/30/21 06/17/23 15:30 Const General: cooperative Nutritional Appearance: obese morbidly obese Orientation/consciousness: patient oriented x3 Resp Effort & Inspection: normal respiratory effort Auscultation: clear to auscultation bilaterally Cardio Rate: regular rate Rhythm: regular rhythm Heart sounds: S1 normal heart sound present and S2 normal heart sound present Neuro General: patient oriented x3 Psych Appearance: grossly normal Mental Status: mental status grossly normal Speech and movement: Normal speech and movement present Affect: normal affect Attitude: cooperative Thought process: Normal thought process present Thought content: Normal thought content present Insight: Good insight present (Psych) Judgement: Good judgement present (Psych) Assessment and Plan Assessment & Plan (1) Smoking: Code(s): F17.200 - Nicotine dependence, unspecified, uncomplicated Plan: Referred to thoracic (2) HTN (hypertension): Code(s): I10 - Essential (primary) hypertension Plan: Continue current meds (3) Elevated fasting blood sugar: Code(s): R73.01 - Impaired fasting glucose Plan: Educated on proper diet and portion sizes Plan The patient agreed to the use of a director of medical staff services for this encounter. Scribed for KENJI Valle by Geri Leija director of medical staff services, on 06/17/2023 at 15:35 EST. Orders: Orders Complete Blood Count Auto Diff Today F17.200 - Nicotine dependence, unspecified, uncomplicated, I10 - Essential (primary) hypertension, R73.01 - Impaired fasting glucose TSH reflex Free T4 Today F17.200 - Nicotine dependence, unspecified, uncomplicated, I10 - Essential (primary) hypertension, R73.01 - Impaired fasting glucose Comprehensive Lilly. Panel Fast Today F17.200 - Nicotine dependence, unspecified, uncomplicated, I10 - Essential (primary) hypertension, R73.01 - Impaired fasting glucose Lipid Panel Today F17.200 - Nicotine dependence, unspecified, uncomplicated, I10 - Essential (primary) hypertension, R73.01 - Impaired fasting glucose UA CC w/rflx Micro + Cult Today F17.200 - Nicotine dependence, unspecified, uncomplicated, I10 - Essential (primary) hypertension, R73.01 - Impaired fasting glucose Hemoglobin A1c Today R73.01 - Impaired fasting glucose Referrals Thoracic Surgery Referral F17.200 - Nicotine dependence, unspecified, uncomplicated Coding Level of Care Code Est Pt Level 3 (05944) Diagnoses Smoking F17.200 HTN (hypertension) I10 Elevated fasting blood sugar R73.01
== END 2023-06-17 16:01 | disposition home or self-care (01) ==
PROVIDERS: PCP Nurse Practitioner Family; Visit Provider Nurse Practitioner Family
DX: I10 Essential (primary) hypertension (principal); F17.210 Nicotine dependence, cigarettes, uncomplicated; R73.01 Impaired fasting glucose
CPT/HCPCS: 99213

== ENCOUNTER 2023-06-19 08:17 | Outpatient (AMB) | payer OTHER, SELFPAY ==
--- NOTE | 2023-06-19 08:28 | A.OFFVIS_ITS ---
Intake Vital Signs 06/19/23 08:29 Height 5 ft 7 in Weight 300 lb BMI 47.0 Intake Visit Reasons: OV- Pain Left shoulder Intake Note: Hans is a 58 year old male who presents today for a follow up of his left shoulder pain. Last injection done 03/13/23. Patient reports that this shoulder is feeling about the same. He has been working with PT, who expressed more concerns with neck and back. He is also complaining of left knee pain. Allergies No Known Allergies Allergy (Verified 06/19/23 08:34) HPI OV- Pain Left shoulder HPI Details Hans is a 58 year old man who returns to discuss his left shoulder impingement. He continues to have pain with daily activity, and found limited relief from his steroid injection on 03/13/23. He says he has been working with PT, and they are more concerned about his possible cervical radiculopathy. He also continues to complain of left knee pain with activity. [facility] Medical History HLD (hyperlipidemia) Ankle fracture, left Morbid obesity Hypertension Primary osteoarthritis of right hip Gout Rupture of right biceps tendon Surgical History History of carpal tunnel repair H/O colonoscopy H/O right wrist surgery History of left hip replacement Family History Father COPD (chronic obstructive pulmonary disease) Cancer Hypertension Substance abuse Mother COPD (chronic obstructive pulmonary disease) Hypertension Substance abuse Social History Housing: House Are you a primary resident care coordinator to a significant other at home: No Do you presently have visiting nurse or other home services: No Patient Tobacco Use Status: Current everyday Tobacco user Tobacco use type: Cigarette Cigarettes Per Day: 2 Years Smoked: 15 e-Cigarette/Vaping Use: Currently Using Second Hand Smoke Exposure: No Substance Use Type: Marijuana service: No Current occupational status: employed 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 Current occupational exposures/hazards: No Cognitive needs: No Hearing needs: No Vision needs: No Review of Systems Const All systems reviewed & are unremarkable except as noted in HPI and below Physical Exam Vital Signs: BMI result Body Mass Index 47.0 Const General: no acute distress, alert and awake Orientation/consciousness: patient oriented x3 HEENT Head: Yes normocephalic and Yes atraumatic Eyes EOM: EOMs intact bilaterally Resp Effort & Inspection: normal respiratory effort and able to speak in complete sentences Cardio Jugular venous distension: no JVD Skin General skin exam: turgor normal Rashes: no rashes Neuro General: patient oriented x3 Extrem Other: Left Shoulder: Mild 4+/5 weakness with empty can test + H&N Psych Appearance: grossly normal Affect: normal affect Attitude: cooperative Office Procedures Joint Injection/Drain Joint Injection/Drain Details: Injected 1 mL of Decadron and 3 mL 1% lidocaine and 3 mL of 0.25% Marcaine. Site was prepped using aseptic technique. Patient tolerated the procedure well. Primary Site: left shoulder Approach Used: posterolateral Coding 51935 - Large joint Procedure code (CPT) selection complete Results Reviewed Results Reviewed: I personally reviewed relevant radiographs. Assessment & Plan Assessment & Plan (1) Impingement of left shoulder: Code(s): M25.812 - Other specified joint disorders, left shoulder Plan: This is a 58 year old man with left shoulder impingement. He has pain with daily activity, worse with overhead reaching & lifting activities, and at night. He found limited relief from his prior injection and is currently attending PT with some relief, who are concerned about his cervical issues. I discussed his diagnosis and treatment options. I injected his left shoulder today, which he tolerated well, and recommend he continue with his PT, work on weight management, and limit/avoid any heavy lifting or overhead activities. He will follow up in 3 months, if his symptoms persist we may consider an MRI. (2) Cervical radiculopathy: Code(s): M54.12 - Radiculopathy, cervical region Plan: Neck pain and numbness radiating down his left arm into his hand, along with pain & numbness affecting his back. I referred him to Dr. Dow in Pain Management for assessment. (3) Patellofemoral arthritis of left knee: Code(s): M17.12 - Unilateral primary osteoarthritis, left knee Plan: Pain with activity. I recommend activity modification and weight management. I injected his left knee today, which he tolerated well. He can follow up prn Coding Level of Care Code Est Pt Level 3 (69742) Diagnoses Impingement of left shoulder M25.812 Cervical radiculopathy M54.12 Patellofemoral arthritis of left knee M17.12 CPT Codes Coding - 79437 Large joint: 07375 - Large joint ([id number])
[2023-06-19 08:29] VITALS: BMI 47.0
== END 2023-06-19 09:12 | disposition home or self-care (01) ==
PROVIDERS: PCP Nurse Practitioner Family; Visit Provider Orthopaedic Surgery
DX: M25.812 Other specified joint disorders, left shoulder (principal); M54.12 Radiculopathy, cervical region; M17.12 Unilateral primary osteoarthritis, left knee
CPT/HCPCS: 20610; 99213

== ENCOUNTER → 2023-06-19 08:17 | Outpatient (BNVA) | payer OTHER, SELFPAY | PROVIDERS: PCP Nurse Practitioner Family; Visit Provider Orthopaedic Surgery | DX: M25.812 Other specified joint disorders, left shoulder (principal); M17.12 Unilateral primary osteoarthritis, left knee; M54.12 Radiculopathy, cervical region | CPT/HCPCS: 20610; 99212 ==

== ENCOUNTER 2023-09-25 08:18 | Outpatient (AMB) | payer OTHER, SELFPAY ==
[2023-09-25 08:37] VITALS: BP 130/78; PULSE 86; O2SAT 96; BMI 48.2
--- NOTE | 2023-09-25 08:37 | MHC.PC.OV ---
Vital Signs 09/25/23 08:37 Height 5 ft 7 in Weight 307 lb 8 oz BMI 48.2 BP 130/78 Blood Pressure Location Lt brachial Position Sitting Pulse 86 Pulse Source Pulse Oximeter Pulse Oximetry (%) 96 Oxygen Delivery Method Room Air Intake Visit Reasons: 3-4 month follow up Intake Note: pt is here for 4 month follow up [employer] Required: No Accompanied by: Self / Same As Patient Allergies No Known Allergies Allergy (Verified 09/25/23 08:39) Medication List - Last Reconciled 09/25/23 by FABI Shaw amlodipine 5 mg PO DAILY celecoxib 200 mg PO BID cetirizine (Zyrtec) 10 mg PO DAILY gabapentin 100 mg PO TID garlic 400 mg PO DAILY indomethacin 50 mg PO BID ipratropium bromide 2 sprays intranasal DAILY 90 days krill oil mg PO lisinopril 40 mg PO DAILY 90 days nicotine (Nicoderm CQ) 1 patch transdermal Q24H rosuvastatin 40 mg PO DAILY 90 days sertraline 50 mg PO DAILY walker Folding Front wheeled walker Tobacco use date assessed: 09/25/23 Dental Screening Dental Screen Date: 09/25/23 Did you have a dental visit in the last 12 months?: No Did you have a dental problem in the last 6 months where you did not have access to dental care?: No Was dental information given to patient?: Patient declined HPI 3-4 month follow up HPI Details smoker: Pt had a low dose CT scan recently which was benign. Pt is interested in smoking cessation. Will send nicotine patches. Pt is also interested in hypnosis, will give pt number to call for this. Denies chest pain, shortness of breath, and dizziness. [facility]LY [facility] Medical History HLD (hyperlipidemia) Ankle fracture, left Morbid obesity Hypertension Primary osteoarthritis of right hip Gout Rupture of right biceps tendon Surgical History History of carpal tunnel repair H/O colonoscopy H/O right wrist surgery History of left hip replacement Family History Father COPD (chronic obstructive pulmonary disease) Cancer Hypertension Substance abuse Mother COPD (chronic obstructive pulmonary disease) Hypertension Substance abuse Social History (Reviewed 09/25/23 @ 09:[address] [facility] [place]) Housing: House Are you a primary healthcare advisory services manager to a significant other at home: No Do you presently have visiting nurse or other home services: No Patient Tobacco Use Status: Current everyday Tobacco user Tobacco use type: Cigarette Cigarettes Per Day: 2 Years Smoked: 15 Packs per year/per ci.50 e-Cigarette/Vaping Use: Currently Using Second Hand Smoke Exposure: No Substance Use Type: Marijuana service: No Current occupational status: employed Current occupation: [employer] Current occupational exposures/hazards: No Cognitive needs: No Hearing needs: No Vision needs: No Questionnaire Thrive Questionnaire Date Thrive assessed: 10/30/21 AISHA-7 AMB Questionnaire AISHA-7 Date AISHA - 7 assessed: 10/30/21 Source: Developed by Drs. Kevin Grant, Gemini Collazo, Marcello Pinzon and colleagues, with an educational cara from [employer]. Review of Systems Const Reports as per HPI Physical exam (Primary Care) Vital Signs: Last Vital Signs Pulse 86 09/25/23 08:37 BP 130/78 09/25/23 08:37 Pulse Ox 96 09/25/23 08:37 Oxygen Delivery Method Room Air 09/25/23 08:37 BMI result Body Mass Index 48.2 Tobacco/Smoking Status: Tobacco use Status Tobacco use date assessed 09/25/23 09/25/23 08:45 Patient Tobacco Use Status Current everyday Tobacco 09/25/23 08:38 Tobacco use type Cigarette 09/25/23 08:38 e-Cigarette/Vaping Use Currently Using 09/25/23 08:38 Thrive Assessment: Date of Thrive Assessment Date Thrive assessed 10/30/21 09/25/23 08:38 Const General: cooperative Nutritional Appearance: obese morbidly obese Orientation/consciousness: patient oriented x3 Resp Effort & Inspection: normal respiratory effort Auscultation: clear to auscultation bilaterally and diminished lung sounds Cardio Rate: regular rate Rhythm: regular rhythm Heart sounds: S1 normal heart sound present and S2 normal heart sound present Skin Other: vertex of scalp with round, erythematous, macular lesion, fair skinned Neuro General: patient oriented x3 Psych Appearance: grossly normal Mental Status: mental status grossly normal Speech and movement: Normal speech and movement present Affect: normal affect Attitude: cooperative Thought process: Normal thought process present Thought content: Normal thought content present Insight: Good insight present (Psych) Judgement: Good judgement present (Psych) Assessment and Plan Assessment & Plan (1) Skin lesion of scalp: Code(s): L98.9 - Disorder of the skin and subcutaneous tissue, unspecified Plan: Referred to derm (2) Smoking: Code(s): F17.200 - Nicotine dependence, unspecified, uncomplicated Plan: encouraged to quit, sent patches, hypnotist number given, low dose CT scan performed Plan The patient agreed to the use of a medical lab tech instructor for this encounter. Scribed for FABI Valle by Geri Leija medical lab tech instructor, on 09/25/2023 at 08:55 EST. Orders: Referrals Dermatology Referral L98.9 - Disorder of the skin and subcutaneous tissue, unspecified Medications: New nicotine (Nicoderm CQ) 1 patch transdermal Q24H 28 ea 0RF Discontinued nicotine (polacrilex) Discontinued Reason: Doctor's Order 4 mg buccal Q2H 40 ea 0RF Coding Level of Care Code Est Pt Level 3 (98447) Diagnoses Skin lesion of scalp L98.9 Smoking F17.200
== END 2023-09-25 09:10 | disposition home or self-care (01) ==
PROVIDERS: PCP Nurse Practitioner Family; Visit Provider Nurse Practitioner Family
DX: L98.9 Disorder of the skin and subcutaneous tissue, unspecified (principal); F17.210 Nicotine dependence, cigarettes, uncomplicated
CPT/HCPCS: 99213

== ENCOUNTER 2024-01-29 10:09 | Outpatient (REF) | payer OTHER, SELFPAY | END 2024-01-29 10:10 | disposition home or self-care (01) | LOC: HO.MRI 10:09 | PROVIDERS: PCP Nurse Practitioner Family; Visit Provider Orthopaedic Surgery | DX: Z13.89 Encounter for screening for other disorder (principal) ==

== ENCOUNTER 2024-02-18 12:53 | Outpatient (AMB) | payer OTHER, SELFPAY ==
--- NOTE | 2024-02-18 12:58 | A.OFFPC_ITS ---
Vital Signs 02/18/24 12:59 Height 5 ft 7 in Weight 299 lb BMI 46.8 BP 110/80 Blood Pressure Location Rt brachial Position Sitting Pulse 90 Pulse Source Pulse Oximeter Pulse Oximetry (%) 95 Oxygen Delivery Method Room Air Intake Visit Reasons: Annual PE Intake Note: Patient here for physical exam. pt would like to talk about back pain. Allergies No Known Allergies Allergy (Verified 02/18/24 13:39) Medication List - Last Reconciled 02/18/24 by FABI Shaw amlodipine 5 mg PO DAILY amoxicillin 2,000 mg (4 x 500 mg) PO ONCE PRN 1 day cetirizine (Zyrtec) 10 mg PO DAILY duloxetine 30 mg PO DAILY gabapentin 100 mg PO TID garlic 400 mg PO DAILY ipratropium bromide 2 sprays intranasal DAILY 90 days krill oil mg PO lisinopril 40 mg PO DAILY 90 days nicotine 1 patch transdermal DAILY rosuvastatin 40 mg PO DAILY 90 days semaglutide (weight loss) (Wegovy) 0.25 mg (0.5 mL) subcut QWEEK walker Folding Front wheeled walker Tobacco use date assessed: 09/25/23 Dental Screening Dental Screen Date: 09/25/23 HPI Annual PE HPI Details Pt is here for a PE. Will order labs. Colon screen is up to date. PSA is up to date. Pt has a hx of bilat carpal tunnel surgery. He reports ongoing numbness of his hands. Will order EMG/nerve conduction testing. Pt is interested in weight loss. Will send wegovy 0.25mg. Pt is morbidly obese, no matter what i do i still gain weight . denies any nocturia, urinary urgency, difficulty starting a stream, reports emptying his bladder completely [facility], LAT[facility] Medical History HLD (hyperlipidemia) Ankle fracture, left Morbid obesity Hypertension Primary osteoarthritis of right hip Gout Rupture of right biceps tendon Surgical History History of carpal tunnel repair H/O colonoscopy H/O right wrist surgery History of left hip replacement Family History Father COPD (chronic obstructive pulmonary disease) Cancer Hypertension Substance abuse Mother COPD (chronic obstructive pulmonary disease) Hypertension Substance abuse Social History Housing: House Are you a primary furnace caretaker to a significant other at home: No Do you presently have visiting nurse or other home services: No Patient Tobacco Use Status: Current everyday Tobacco user Tobacco use type: Cigarette Cigarettes Per Day: 2 Years Smoked: 15 e-Cigarette/Vaping Use: Currently Using Second Hand Smoke Exposure: No Substance Use Type: Marijuana service: No Current occupational status: employed Current occupation: [employer] Current occupational exposures/hazards: No Cognitive needs: No Hearing needs: No Vision needs: No Questionnaire PHQ-9 Over the last 2 weeks, how often have you been bothered by any of the following problems? 1. Little interest or pleasure in doing things: nearly every day 2. Feeling down, depressed, or hopeless: more than half the days 3. Trouble falling or staying asleep, or sleeping too much: several days 4. Feeling tired or having little energy: several days 5. Poor appetite or overeating: several days 6. Feeling bad about yourself - or that you are a failure or have let yourself or your family down: not at all 7. Trouble concentrating on things, such as reading the newspaper or watching television: not at all 8. Moving or speaking so slowly that other people could have noticed. Or the opposite - being so fidgety or restless that you have been moving around a lot more than usual: not at all 9. Thoughts that you would be better off or of hurting yourself in some way: not at all Total score: 8 Depression Screening Interpretation: Negative (has a therapist and psychiatrist, denies any si or hi) Depression Screening Done: Yes 81634 - PHQ-9 Billing: Yes Source: Developed by Drs. Kevin Grant, Gemini Collazo, Marcello Pinzon and colleagues, with an educational cara from [employer]. Thrive Questionnaire Date Thrive assessed: 02/11/24 I am a: Patient What is your living situation today?: I have a steady place to live Within the past 12 months, did the food you bought not last and you didn't have the money to get more?: Never true Within the past 12 months, did you worry whether your food would run out before you got money to buy more?: Sometimes True Do you have trouble paying for medicines?: No Do you have trouble getting transportation to medical appointments?: No Do you have trouble paying your heating and electricity bill?: No Do you have trouble taking care of your child, family member or friend?: No Do you have trouble with day-to-day activities such as bathing, preparing meals, shopping, managing finances, etc.?: I choose not to answer this question Are you currently unemployed and looking for a job?: No Are you interested in more education?: No Please select the resources that you would like help with: Housing/Group Home Currently or been in a relationship where the following occur: No concerns reported THRIVE Score: 1 AUDIT C Alcohol Use Questionnaire (AUDIT-C) 1. How often do you have a drink containing alcohol?: 2-3 times a week 2. How many drinks containing alcohol do you have on a typical day when you are drinking?: 3 or 4 3. How often do you have six or more drinks on one occasion?: Monthly Total Score: 6 AISHA-7 AMB Questionnaire AISHA-7 Date AISHA - 7 assessed: 02/18/24 Feeling nervous, anxious, or on edge: 1 = Several days Not being able to stop or control worryin = Several days Worrying too much about different things: 1 = Several days Trouble relaxin = Several days Being so restless that it is hard to sit still: 0 = Not at all Becoming easily annoyed or irritable: 2 = More than half the days Feeling afraid as if something awful might happen: 1 = Several days Total AISHA-7 score (0-4 normal; 5-9 mild; 10-14 moderate; 15-21 severe): 7 Source: Developed by Drs. Kevin Grant, Gemini Collazo, Marcello Pinzon and colleagues, with an educational cara from [employer]. AISHA-7 Assessment Billing AISHA-7 Assessment Tool: AISHA-7 Assessment 03031 Review of Systems Const Denies chills and Denies fever(s) Eyes Denies blurry vision ENT Denies vertigo, Denies dizziness and Denies sore throat Card Denies chest pain at rest, Denies chest pain with activity, Denies diaphoresis, Denies dyspnea and Denies dyspnea on exertion Resp Denies cough, Denies dyspnea, Denies dyspnea on exertion and Denies wheezing GI Denies abdominal pain, Denies melena, Denies hematochezia, Denies constipation, Denies diarrhea and Denies loose stools Denies hematuria Musc Reports numbness and Denies tingling Skin/Breast Denies lesions Neuro Denies vertigo, Denies dizziness, Reports numbness and Denies tingling Psych Denies anxiety, Denies depression, Denies homicidal ideation, Denies suicidal ideation and Denies other (substance abuse) Aller/Immun Denies wheezing Physical exam (Primary Care) Vital Signs: Last Vital Signs Pulse 90 02/18/24 12:59 BP 110/80 02/18/24 12:59 Pulse Ox 95 02/18/24 12:59 Oxygen Delivery Method Room Air 02/18/24 12:59 BMI result Body Mass Index 46.8 Tobacco/Smoking Status: Tobacco use Status Tobacco use date assessed 09/25/23 02/18/24 12:59 Patient Tobacco Use Status Current everyday Tobacco 02/18/24 12:59 Tobacco use type Cigarette 02/18/24 12:59 e-Cigarette/Vaping Use Currently Using 02/18/24 12:59 PHQ-9: PHQ-9 Score PHQ-9: Total score 8 02/18/24 13:12 Depression Screening Interpretation: Negative (has a therapist and psychiatrist, denies any si or hi) Thrive Assessment: Date of Thrive Assessment Date Thrive assessed 02/11/24 02/18/24 12:59 Currently or been in a relationship where the following occur: No concerns reported Const General: cooperative Nutritional Appearance: obese morbidly obese Orientation/consciousness: patient oriented x3 HENMT Head: Yes normal to inspection, Yes normocephalic and Yes atraumatic Ears: TM's normal bilaterally Eyes General: appearance normal, both eyes and all related structures Alignment and Position: alignment normal and position normal Neck Neck: Yes normal visual inspection and Yes no lymphadenopathy Thyroid: Thyroid normal Resp Effort & Inspection: normal respiratory effort Auscultation: clear to auscultation bilaterally Cardio Rate: regular rate Rhythm: regular rhythm Heart sounds: S1 normal heart sound present, S2 normal heart sound present and no murmurs GI Palpation (GI): Soft to palpation and nontender Auscultation: normal bowel sounds Male General Exam: Yes normal external exam Penis: normal penis Scrotum: scrotum normal, testes descended bilaterally and no inguinal hernias Testes: no testicular mass Skin Rashes: no rashes Neuro General: patient oriented x3, moves all extremities, no focal motor deficits and deep tendon reflexes 2+ bilaterally Romberg Test: Negative Psych Appearance: grossly normal Mental Status: mental status grossly normal Speech and movement: Normal speech and movement present Affect: normal affect Attitude: cooperative Thought process: Normal thought process present Thought content: Normal thought content present Insight: Good insight present (Psych) Judgement: Good judgement present (Psych) Assessment and Plan Assessment & Plan (1) Bilateral hand numbness: Code(s): R20.0 - Anesthesia of skin Plan: emg/nerve conduction (2) Encounter for routine adult physical exam with abnormal findings: Code(s): Z00.01 - Encounter for general adult medical examination with abnormal findings Plan: labs ordered (3) Morbid obesity: Code(s): E66.01 - Morbid (severe) obesity due to excess calories Plan: starting wegovy, will follow up with weight checks Plan The patient agreed to the use of a electromedical equipment repairer for this encounter. Scribed for FABI Valle by Geri Leija electromedical equipment repairer, on 02/18/2024 at 13:10 EST. Orders: Orders TSH reflex Free T4 Today Z00.01 - Encounter for general adult medical examination with abnormal findings NE electromyogram (EMG) Today R20.0 - Anesthesia of skin NE nerve conduction velocity Today R20.0 - Anesthesia of skin Complete Blood Count Auto Diff Today Z00.01 - Encounter for general adult medical examination with abnormal findings Comprehensive [place]. Panel Fast Today Z00.01 - Encounter for general adult medical examination with abnormal findings UA CC w/rflx Micro + Cult Today Z00.01 - Encounter for general adult medical examination with abnormal findings Lipid Panel Today Z00.01 - Encounter for general adult medical examination with abnormal findings Medications: New semaglutide (weight loss) (Wegovy) administer weeks 1 through 4 of therapy 0.25 mg (0.5 mL) subcut QWEEK 2 mL 0RF Coding Level of Care Code Est Pt Prev Care 40-64y(10866) Diagnoses Bilateral hand numbness R20.0 Encounter for routine adult physical exam with abnormal findings Z00.01 Morbid obesity E66.01 Additional Codes AISHA-7 Assessment Billing - AISHA-7 Assessment Tool: AISHA-7 Assessment 17947 ([id number])
[2024-02-18 12:59] VITALS: BP 110/80; PULSE 90; O2SAT 95; BMI 46.8
== END 2024-02-18 13:29 | disposition home or self-care (01) ==
PROVIDERS: PCP Nurse Practitioner Family; Visit Provider Nurse Practitioner Family
DX: Z00.00 Encounter for general adult medical examination without abnormal findings (principal); R20.0 Anesthesia of skin; E66.01 Morbid (severe) obesity due to excess calories; Z68.42 Body mass index [BMI] 45.0-49.9, adult
CPT/HCPCS: 99396

== ENCOUNTER 2024-02-27 09:18 | Outpatient (REF) | payer OTHER, SELFPAY ==
--- NOTE | 2024-02-27 09:21 | EMG_ITS ---
Chief complaint: Bilateral hand numbness, history of bilateral Carpal Tunnel Syndrome surgeries more than 20 years ago. Left side is worse in the sense that it affects the whole left arm, and he gets dizzy when he looks down/cervical flexion. Found left upper EM[place] [address] Broderick reported left mild moderate Carpal Tunnel Syndrome. Found an MRI cervical spine 1996 reported normal. Reason for referral: Evaluate for Carpal Tunnel Syndrome versus radiculopathy Referred by: Alirio Jung NP Procedure done: Bilateral upper extremities NCS/EMG Precautions and/or limitations: None The limb temperature was monitored continuously and remained between 32-36 degrees C during the performance of the NCS. Ulnar motor NCS was performed with moderate elbow flexion between 70-90 degrees, with across-elbow distance of 10 cm. Nerve Conduction Studies Anti Sensory Summary Table ?Stim Site NR Onset (ms) Norm Onset (ms) Peak (ms) Norm Peak (ms) O-P Amp (?V) Norm O-P Amp Site1 Site2 Delta-0 (ms) Dist (cm) Aman (m/s) Norm Aman (m/s) Left Median Anti Sensory (2nd Digit) Wrist NR <3.6 >10 Wrist 2nd Digit 14.0 Right Median Anti Sensory (2nd Digit) Wrist NR <3.6 >10 Wrist 2nd Digit 14.0 Right Radial Anti Sensory (Thumb) Forearm ? 1.1 2.3 <3.1 13.9 Forearm Thumb 1.1 0.0 Left Ulnar Anti Sensory (5th Digit) Wrist ? 2.6 3.4 <3.7 10.6 >15.0 Wrist 5th Digit 2.6 14.0 54 Right Ulnar Anti Sensory (5th Digit) Wrist ? 0.9 3.3 <3.7 26.1 >15.0 Wrist 5th Digit 0.9 14.0 156 Motor Summary Table ?Stim Site NR Onset (ms) Norm Onset (ms) O-P Amp (mV) Norm O-P Amp iAmp (mV) Amp (1st) (%) Site1 Site2 Delta-0 (ms) Dist (cm) Aman (m/s) Norm Aman (m/s) Left Median Motor (Abd Poll Brev) Wrist ? 6.3 <3.9 5.2 >4.5 6.2 100.0 Elbow Wrist 4.4 20.0 45 >45 Elbow ? 10.7 4.4 5.5 84.6 Right Median Motor (Abd Poll Brev) Wrist ? 7.8 <3.9 3.4 >4.5 5.0 100.0 Elbow Wrist 6.0 19.0 32 >45 Elbow ? 13.8 0.8 1.1 23.5 Left Ulnar Motor (Abd Dig Minimi) Wrist ? 3.2 <3.0 8.1 >5 10.5 100.0 B Elbow Wrist 4.1 19.0 46 >45 B Elbow ? 7.3 7.2 9.5 88.9 A Elbow B Elbow 1.5 10.0 67 >45 A Elbow ? 8.8 6.9 9.2 85.2 Right Ulnar Motor (Abd Dig Minimi) Wrist ? 3.0 <3.0 6.4 >5 8.2 100.0 B Elbow Wrist 4.0 21.0 53 >45 B Elbow ? 7.0 7.1 9.1 110.9 A Elbow B Elbow 1.4 10.0 71 >45 A Elbow ? 8.4 7.1 9.2 110.9 EMG ?Side Muscle Nerve Root Ins Act Fibs Psw Amp Dur Poly Recrt Int Pat Comment Right 1stDorInt Ulnar C8-T1 Incr 1+ 1+ Nml Nml 0 Nml Complete Right FlexCarRad Median C6-7 Nml Nml Nml Nml Nml 0 Nml Complete Right Biceps Musculocut C5-6 Nml Nml Nml Nml Nml 0 Nml Complete Right Triceps Radial C6-7-8 Nml Nml Nml Nml Nml 0 Nml Complete Right Deltoid Axillary C5-6 Nml Nml Nml Nml Nml 0 Nml Complete Left 1stDorInt Ulnar C8-T1 Nml Nml Nml Nml Nml 0 Nml Complete Left FlexCarRad Median C6-7 Nml Nml Nml Nml Nml 0 Nml Complete Left Biceps Musculocut C5-6 Nml Nml Nml Nml Nml 0 Nml Complete Left Triceps Radial C6-7-8 Nml Nml Nml Nml Nml 0 Nml Complete Left Deltoid Axillary C5-6 Nml Nml Nml Nml Nml 0 Nml Complete Paraspinal EMG ?Side Muscle Nerve Root Ins Act Fibs Psw Comment Right Cervical Upper Rami Nml Nml Nml Right Cervical Mid Rami Nml Nml Nml Right Cervical Lower Rami Nml Nml Nml Left Cervical Upper Rami Nml Nml Nml Left Cervical Mid Rami Nml Nml Nml Left Cervical Lower Rami Incr 1+ 1+ FINDINGS: Right median motor nerves showed prolonged distal latency, small amplitude and slow conduction velocity. Left median motor nerve showed prolonged distal latency, normal amplitude and normal conduction velocity. Left ulnar motor nerve showed slightly prolonged distal latency, normal amplitude and normal conduction velocity. Bilateral median sensory nerves showed absent response. All other nerves tested were within normal. Concentric needle EMG was performed in selected muscles of the bilateral upper extremities and cervical paraspinals. Study revealed signs of electric abnormalities as shown in the table above. Left FDI muscle showed increased insertional activity, PSWs and fibrillations. Left lower cervical paraspinals showed increased insertional activity, PSWs and fibrillations. IMPRESSION: 1. This is an abnormal study. 2. There is electrodiagnostic evidence for bilateral moderate-severe median neuropathy at the wrist, consistent with Carpal Tunnel Syndrome. 3. There is electrodiagnostic evidence for left C8-T1 cervical radiculopathy. 4. There is no electrodiagnostic evidence for ulnar neuropathy or brachial plexopathy. CLINICAL COMMENT: Further clinical correlation recommended. Thank you for your kind referral. Rox Birch MD, ABDIAS Board Certified, [place] Board [employer] and Rehabilitation (ABPMR) Board Certified, [place] Board of Electrodiagnostic Medicine (ABEM) CODIN [phone] x 2 MTDD
== END 2024-02-27 09:19 | disposition home or self-care (01) ==
LOC: HO.NEURO 09:18
PROVIDERS: PCP Nurse Practitioner Family; Visit Provider Nurse Practitioner Family
DX: R20.0 Anesthesia of skin (principal)
CPT/HCPCS: 95886; 95911

== ENCOUNTER → 2024-02-27 09:21 | Outpatient (BNV) | payer OTHER, SELFPAY | PROVIDERS: PCP Nurse Practitioner Family; Visit Provider Physical Medicine & Rehabilitation | DX: G56.03 Carpal tunnel syndrome, bilateral upper limbs (principal); M50.13 Cervical disc disorder with radiculopathy, cervicothoracic region | CPT/HCPCS: 95886; 95911 ==

== ENCOUNTER 2024-03-08 08:37 | Outpatient (AMB) | payer OTHER, SELFPAY ==
--- NOTE | 2024-03-08 08:44 | A.OFFVIS_ITS ---
Intake Visit Reasons: OV-Left shoulder MRI review Intake Note: Hans is a 59 year old male who presents today for an MRI follow up of his left shoulder. IMPRESSION: 1. Advanced glenohumeral joint osteoarthritis with joint effusion and synovitis and loose bodies. 2. Moderate acromioclavicular joint osteoarthritis. 3. Supraspinatus tendinopathy with minimal interstitial insertional partial tearing. Allergies No Known Allergies Allergy (Verified 03/08/24 08:47) HPI HPI OV-Left shoulder MRI review: Details: Hans is a 59 year old male who presents today for an MRI follow up of his left shoulder. He has pain with activity and feels he can not get his hand to the back of his head. He also has numbness and tingling in his arms and a recent EMG/nerve conduction study suggested both carpal tunnel syndrome and cervical radiculopathy. He is here today primarily for his left shoulder. He describes pain with activity, with reaching and with stiffness. It is painful at night but he is able to sleep when he finds a comfortable position. [facility] Medical History HLD (hyperlipidemia) Ankle fracture, left Morbid obesity Hypertension Primary osteoarthritis of right hip Gout Rupture of right biceps tendon Surgical History History of carpal tunnel repair H/O colonoscopy H/O right wrist surgery History of left hip replacement Family History Father COPD (chronic obstructive pulmonary disease) Cancer Hypertension Substance abuse Mother COPD (chronic obstructive pulmonary disease) Hypertension Substance abuse Social History Housing: House Are you a primary care team coordinator scheduler to a significant other at home: No Do you presently have visiting nurse or other home services: No Patient Tobacco Use Status: Current everyday Tobacco user Tobacco use type: Cigarette Cigarettes Per Day: 2 Years Smoked: 15 e-Cigarette/Vaping Use: Currently Using Second Hand Smoke Exposure: No Substance Use Type: Marijuana service: No Current occupational status: employed Current occupation: [employer] Current occupational exposures/hazards: No Cognitive needs: No Hearing needs: No Vision needs: No Physical Exam Extrem Other: 20 degrees of external rotation left shoulder. Passive and active abduction to 80 degrees and floor forward flexion to 120. Restricted in CON motions. Office Procedures Joint Injection/Aspiration Joint Injection/Aspiration Details: Injected 1 mL of Decadron and 3 mL 1% lidocaine and 3 mL of 0.25% Marcaine. Site was prepped using aseptic technique. Patient tolerated the procedure well. Primary Site: left shoulder ([facility]) Approach Used: posterolateral Coding - Large joint Procedure code (CPT) selection complete Results Reviewed Results Reviewed: I personally reviewed the MR images. IMPRESSION: 1. Advanced glenohumeral joint osteoarthritis with joint effusion and synovitis and loose bodies. 2. Moderate acromioclavicular joint osteoarthritis. 3. Supraspinatus tendinopathy with minimal interstitial insertional partial tearing. Assessment & Plan Assessment & Plan (1) Abnormal EMG: Code(s): R94.131 - Abnormal electromyogram [EMG] Category: Medical Plan: EMG suggests cervical radiculopathy as well as carpal tunnel syndrome. (2) Bilateral hand numbness: Code(s): R20.0 - Anesthesia of skin Category: Medical Plan: (3) Osteoarthritis of left shoulder: Code(s): M19.012 - Primary osteoarthritis, left shoulder Category: Medical Plan: I injected his left glenohumeral joint. I do not recommend surgery at this time. I do think he would benefit from an MRI of his cervical spine. (4) Cervical radiculopathy: Code(s): M54.12 - Radiculopathy, cervical region Category: Medical Plan: EMG/NCV results suspicious for cervical radiculopathy. MRI ordered Orders: Orders MR cervical spine wo con Today M54.12 - Radiculopathy, cervical region, R94.131 - Abnormal electromyogram [EMG] Coding Level of Care Code Est Pt Level 4 (10047) Diagnoses Abnormal EMG R94.131 Bilateral hand numbness R20.0 Osteoarthritis of left shoulder M19.012 Cervical radiculopathy M54.12 CPT Codes Coding - Large joint: - Large joint ([id number])
== END 2024-03-08 09:17 | disposition home or self-care (01) ==
PROVIDERS: PCP Nurse Practitioner Family; Visit Provider Orthopaedic Surgery
DX: M19.012 Primary osteoarthritis, left shoulder (principal); M54.12 Radiculopathy, cervical region; R20.0 Anesthesia of skin
CPT/HCPCS: 20610; 99214

== ENCOUNTER → 2024-03-08 08:37 | Outpatient (BNVA) | payer OTHER, SELFPAY | PROVIDERS: PCP Nurse Practitioner Family; Visit Provider Orthopaedic Surgery | DX: M54.12 Radiculopathy, cervical region (principal); M19.012 Primary osteoarthritis, left shoulder; R20.0 Anesthesia of skin; R94.131 Abnormal electromyogram [EMG] | CPT/HCPCS: 20610; 99212; J0665; J1100 ==

== ENCOUNTER 2024-03-08 09:28 | Outpatient (REF) | payer OTHER, SELFPAY ==
[2024-03-08 10:36] LABS: MANUAL DIFF FLAG NO
[2024-03-08 10:46] LABS: Basophils Absolute Auto 0.1 X10*3/uL (0.0-0.2); Basophils Percent Auto 0.7 % (0-2); Eosinophils Absolute Auto 0.2 X10*3/uL (0.0-0.4); Eosinophils Percent Auto 2.5 % (0-4); Hematocrit 47.7 % (42.0-52.0); Hemoglobin 15.8 g/dl (14.0-18.0); Imm Gran Abs Auto 0.04 X10*3/uL (0.00-0.03); Imm Gran Pct Auto 0.4 % (0.0-0.4); Lymphocytes Absolute Auto 2.8 X10*3/uL (1.2-4.9); Lymphocytes Percent Auto 30.6 % (20-40); Mean Corpuscular HGB Conc 33.1 g/dl (31.0-36.0); Mean Corpuscular Hemoglobin 30.2 pg (27.0-33.0); Mean Platelet Volume 10.9 fL (9.4-12.4); Monocytes Absolute Auto 0.8 X10*3/uL (0.1-1.2); Monocytes Percent Auto 8.3 % (2-11); Neutrophils Absolute Auto 5.2 x10*3/uL (2.0-8.3); Neutrophils Percent Auto 57.5 % (45-73); Platelet Count 206 X10*3/uL (160-400); Red Blood Count 5.24 X10*6/uL (4.60-5.80); Red Cell Distribution Width 12.8 % (11.0-16.0); White Blood Count 9.1 X10*3/uL (4.8-10.8)
[2024-03-08 10:58] LABS: Appearance Urine Clear; Color Urine Yellow; Glucose Urine UA Negative (Negative); Leukocyte Esterase Urine Negative (Negative); Nitrite Urine Negative (Negative); PH 7.5 (5.0-9.0); UMIC TRIGGER UACC YES; Urine Blood Trace (Negative); Urine Ketones Negative (Negative); Urine Protein Negative (Neg-Trace)
[2024-03-08 11:07] LABS: Bacteria Urine None Seen (None Seen); Hyaline Casts Urine 0-2 /LPF (0-2); Squamous Epithelial Cell Urine 0-2 /HPF (0-2); WBC Urine 0-5 /HPF (0-5)
[2024-03-08 11:21] LABS: Alanine Aminotransferase 19 U/L (0-40); Albumin Level 4.2 g/dL (3.5-5.0); Alkaline Phosphatase 73 U/L (39-117); Anion Gap 11 (12-20); Aspartate Amino Transferase 17 U/L (5-37); Bilirubin Total 0.4 mg/dL (0.0-1.0); Blood Urea Nitrogen 12 mg/dL (9-16); Calcium 9.3 mg/dL (8.4-10.2); Carbon Dioxide 30 mmol/L (22-29); Chloride 101 mmol/L (96-108); Cholesterol 150 mg/dL (<200); Estimated Glomerular Filt Rate > 60; Glucose Fasting 117 mg/dL (60-99); HDL Cholesterol 46 mg/dL (>40); LDL Cholesterol Calculated 77 mg/dL (<100); Sodium 138 mmol/L (135-145); Total Protein 6.9 g/dL (6.5-8.0); Triglycerides 136 mg/dL (<150)
== END 2024-03-08 09:29 | disposition home or self-care (01) ==
LOC: HO.10HDL 09:28
PROVIDERS: Visit Provider Nurse Practitioner Family
DX: Z00.01 Encounter for general adult medical examination with abnormal findings (principal)
CPT/HCPCS: 36415; 80053; 80061; 81001; 84443; 85025

== ENCOUNTER 2024-03-16 08:35 | Outpatient (AMB) | payer OTHER, SELFPAY ==
[2024-03-16 08:36] VITALS: BMI 46.8
--- NOTE | 2024-03-16 08:36 | MHC.OFFVIS ---
Vital Signs 03/16/24 08:36 Height 5 ft 7 in Weight 299 lb BMI 46.8 Intake Visit Reasons: Newpob-CTS, bilateral upper limbs/numbness Intake Note: Hans is a 59 yo 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 male who presents today for evaluation of bilateral CTS confirmed on EMG done 02/27/24. 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 Patient states dominant hand is worse then the other. Reports prior bilateral carpal tunnel release in 2001. Patient would like to discuss sx today. Allergies No Known Allergies Allergy (Verified 03/16/24 08:37) HPI HPI Newpob-CTS, bilateral upper limbs/numbness: Details: Hans is a 59 year old 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 man who presents for a NCS review for his bilateral hand numbness. He has a hx of bilateral carpal tunnel releases in ~2001, at an outside clinic. He complains of numbness in his thumb, index, and middle fingers bilaterally, R>L. He says his symptoms are constant, and have been for ~3 months. He says his numbness returned in his hands following his second hip replacement, when he began to walk using a walker or a cane. He denies any small finger numbness, or any locking or catching. He says he has difficulty gripping or holding objects due to his numbness. He had good relief and normal sensation bilaterally following his previous surgeries. He has found limited relief from injections, OT, or wrist braces. He has a Hx of bilateral hip replacements, and is a smoker. He has a Hx of depression. He denies any other medical concerns. [facility] Medical History HLD (hyperlipidemia) Ankle fracture, left Morbid obesity Hypertension Primary osteoarthritis of right hip Gout Rupture of right biceps tendon Surgical History History of carpal tunnel repair H/O colonoscopy H/O right wrist surgery History of left hip replacement Family History Father COPD (chronic obstructive pulmonary disease) Cancer Hypertension Substance abuse Mother COPD (chronic obstructive pulmonary disease) Hypertension Substance abuse Social History (Updated 03/16/24 @ 09:06 by ARNEL Chilel) Housing: House Are you a primary career services manager to a significant other at home: No Do you presently have visiting nurse or other home services: No Patient Tobacco Use Status: Current everyday Tobacco user Tobacco use type: Cigarette Cigarettes Per Day: 2 Years Smoked: 15 e-Cigarette/Vaping Use: Currently Using Second Hand Smoke Exposure: No Substance Use Type: Marijuana service: No Current occupational status: employed 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, 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 Current occupational exposures/hazards: No Cognitive needs: No Hearing needs: No Vision needs: No Review of Systems Const All systems reviewed & are unremarkable except as noted in HPI and below Physical Exam Vital Signs: BMI result Body Mass Index 46.8 Const General: cooperative, healthy appearing and no acute distress Orientation/consciousness: patient oriented x3 HEENT Head: Yes normocephalic and Yes atraumatic Eyes EOM: EOMs intact bilaterally Resp Effort & Inspection: normal respiratory effort and able to speak in complete sentences Cardio Jugular venous distension: no JVD Skin General skin exam: turgor normal Rashes: no rashes Neuro General: patient oriented x3 Extrem Other: Evaluation of Bilateral Upper Extremity: The patient is alert, oriented, and in no acute distress Neuro: Dense numbness in the median nerve distribution bilaterally. Normal sensation in the ulnar nerve distribution bilaterally. No thenar or intrinsic wasting Good APB muscle belly firing and good finger cross Vascular: Cap refill brisk ROM: He can make a fist and extend all his digits No locking or catching Skin: No lacerations or abrasions. General: No Ecchymosis. No Erythema or evidence of infection. Nerve Conduction Study: IMPRESSION: 1. This is an abnormal study. 2. There is electrodiagnostic evidence for bilateral moderate-severe median neuropathy at the wrist, consistent with Carpal Tunnel Syndrome. 3. There is electrodiagnostic evidence for left C8-T1 cervical radiculopathy. 4. There is no electrodiagnostic evidence for ulnar neuropathy or brachial plexopathy. Rox Birch MD, ABDIAS 02/27/24 Psych Appearance: grossly normal Affect: normal affect Attitude: cooperative Assessment & Plan Assessment & Plan (1) Severe carpal tunnel syndrome of both wrists: Code(s): G56.03 - Carpal tunnel syndrome, bilateral upper limbs Category: Medical (2) Smoking: Code(s): F17.200 - Nicotine dependence, unspecified, uncomplicated Category: Social Hx Plan Assessment & Plan: 1. Right carpal tunnel syndrome recurrence, moderate-severe With dense numbness Hx of release in ~2001 at an outside clinic This is his primary complaint today 2. carpal tunnel syndrome recurrence, moderate-severe With dense numbness Hx of release in ~2001 at an outside clinic I educated him about this condition I discussed operative and non-operative treatment options The patient would like to proceed with surgery, beginning with the right side The risks and benefits of operative treatment were discussed with the patient and the patient wishes to proceed with surgery. These risks include, but are not limited to risk of damage to blood vessels, nerves, tendons, infection, recurrence, incomplete relief of preoperative symptoms, persistent pain, possible need for further surgery and the risks associated with regional blocks and anesthesia. I explained the risks of his sensation not returning, but that surgery is important to maintain muscle function and preserve any sensation possible. He expressed understanding The plan is to take the patient to the operating room sometime in the next few weeks for the following procedures: 1. Right REPEAT carpal tunnel release, under local All of the preoperative paperwork including the consent was reviewed today. All the patient's questions were answered. The patient understands that they will be contacted by our surgery specialist soon to schedule this procedure. He is retired and would like to be placed on the cancellation list for a sooner DOS, anytime after 03/30/24 as he is travelling for vacation He denies Diabetes, blood thinners, asthma, heart, lung, kidney issues He is a smoker 3. Nerve conduction study suggestive of C8-T1 cervical radiculopathy At present no problems with numbness and tingling in this distribution or intrinsic motor function If this changes, would suggest referral to spine Clinic with C-spine MRI. Scribed for Sasha Valle MD by Davis Damon, medical center director, on 03/16/24 at 9:15 AM, EST. Coding Level of Care Code Est Pt Level 4 (65943) Diagnoses Severe carpal tunnel syndrome of both wrists G56.03 Smoking F17.200
== END 2024-03-16 09:25 | disposition home or self-care (01) ==
PROVIDERS: PCP Nurse Practitioner Family; Visit Provider Orthopaedic Surgery
DX: G56.03 Carpal tunnel syndrome, bilateral upper limbs (principal); F17.200 Nicotine dependence, unspecified, uncomplicated
CPT/HCPCS: 99214

== ENCOUNTER → 2024-03-16 08:35 | Outpatient (BNVA) | payer OTHER, SELFPAY | PROVIDERS: PCP Nurse Practitioner Family; Visit Provider Orthopaedic Surgery | DX: G56.03 Carpal tunnel syndrome, bilateral upper limbs (principal); F17.210 Nicotine dependence, cigarettes, uncomplicated | CPT/HCPCS: 99212 ==

== ENCOUNTER 2024-05-13 11:42 | Day surgery (SDC) | payer OTHER, SELFPAY ==
[2024-05-13 12:55] VITALS: BP 145/92; PULSE 90; RESP 16; TEMP 36.4; O2SAT 93; BMI 43.8
--- NOTE | 2024-05-13 13:23 | MHC.SHP ---
Pre-Procedural Eval Section A - 24 Hr Update-Section A only Date of Service: 05/13/24 The patient is an INPATIENT: No Changes since office visit: No Cold of Flu in the past 2 weeks, No New Medical Problems, No Changes in Medication and No Patient answered all questions The patient has been examined within 24 hours of the surgical procedure. The History & Physical has been completed within 30 days and I have reviewed it.: Yes Section B - Complete if H&P > 30 days Chief Complaint: Carpal tunnel syndrome, right upper limb repeat Allergies: Allergies Allergy/AdvReac Type Severity Reaction Status Date / Time No Known Allergies Allergy Verified 05/13/24 12:59 Plan Diagnosis/Plan: Unchanged I have reviewed the history and physical and performed a pertinent physical examination on my patient. No changes have occurred unless specified. Time Spent With Patient Time: Total time managing care of this patient today ____ minutes.
--- NOTE | 2024-05-13 13:24 | P.OP_ITS ---
Operative Note Operative Note Date of Service: 05/13/24 Narrative: Preop diagnosis: 1. Recurrent right Carpal tunnel syndrome Postop diagnosis: same Procedure: 1. Repeat right Carpal tunnel release Surgeon: Sasha Valle MD Digital Sales Assistant: Enoch BLACKMON Anesthesia: local block using 1% lidocaine with epinephrine Findings: Thickened transverse carpal ligament. EBL: Less than 5 mL Specimens: None Complications: None Disposition: Brought to recovery room in stable condition Plan: Follow-up for 10-14 days for wound check and suture removal Indications: The patient is 59 years old, with recurrent right carpal tunnel syndrome that has been unresponsive to nonoperative management. The risks and benefits of operative treatment including but not limited to risk of damage to blood vessels, nerves, tendons, infection, persistent pain, persistent symptoms, or possible need for additional surgery were discussed with the patient and the patient wishes to proceed with surgery. Procedure: Once consent was obtained a local block was performed using a c ombination of 1% lidocaine with epinephrine. The patient was then brought back to the operating suite and placed on the operative table in supine position. The right upper extremity was prepped and draped in a standard surgical fashion. Once assured that we had a good block, a 2.0 cm longitudinal incision was made centered over the carpal tunnel and extended in a zigzag fashion just proximal to the distal wrist crease. The incision was made through the skin to the subcutaneous tissues using a #15 blade. We began at the proximal aspect of the incision where I dissected down to the volar forearm fascia. Incision was made in the volar forearm fascia revealing to me the median nerve. While being able to visualize and protect the median nerve I was then able to incise the scar tissue over the carpal tunnel 1st with a 15. Blade and also using iris scissors. Once satisfied with our carpal tunnel release the wound was copiously irrigated with normal saline and hemostasis was obtained with a brief period of local pressure. The skin edges were reapproximated with some 4.0 nylon suture material and a sterile dressing was applied. The patient appears to have tolerated the procedure well and with no complications. All digits were well vascularized at the conclusion of the case.
[2024-05-13 14:44] VITALS: BP 150/92; PULSE 76; RESP 18; O2SAT 93
== END 2024-05-13 15:00 | disposition home or self-care (01) ==
PROVIDERS: PCP Nurse Practitioner Family; Visit Provider Orthopaedic Surgery
PROC: (CPT 64721; principal; 2024-05-13 13:50)
DX: G56.01 Carpal tunnel syndrome, right upper limb (principal); R20.0 Anesthesia of skin; R20.2 Paresthesia of skin; I10 Essential (primary) hypertension; E78.5 Hyperlipidemia, unspecified; M10.9 Gout, unspecified; E66.01 Morbid (severe) obesity due to excess calories; Z68.42 Body mass index [BMI] 45.0-49.9, adult; Z96.643 Presence of artificial hip joint, bilateral; Z98.890 Other specified postprocedural states; F17.210 Nicotine dependence, cigarettes, uncomplicated
CPT/HCPCS: 64721; J0171; J2003

== ENCOUNTER → 2024-05-13 11:42 | Outpatient (BNV) | payer OTHER, SELFPAY | PROVIDERS: PCP Nurse Practitioner Family; Visit Provider Orthopaedic Surgery | DX: G56.01 Carpal tunnel syndrome, right upper limb (principal) | CPT/HCPCS: 64721 ==

== ENCOUNTER 2024-05-17 09:49 | Outpatient (AMB) | payer OTHER, SELFPAY ==
--- NOTE | 2024-05-17 10:25 | AM.OFFWIN_ITS ---
Intake Vital Signs 05/17/24 10:26 Height 5 ft 7 in Weight 306 lb BMI 47.9 BP 122/90 H Blood Pressure Location Lt brachial Position Sitting Pulse 79 Pulse Source Pulse Oximeter Pulse Oximetry (%) 97 Oxygen Delivery Method Room Air Intake Visit Reasons: EP Rt ear pain Intake Note: Patient here for right ear infection that has been present for about 3 weeks now. Patient Tobacco Use Status: Current everyday Tobacco user Allergies No Known Allergies Allergy (Verified 05/17/24 10:26) Do you need a note to return to daycare/school/sports/work: No HPI HPI Comments History of Present Illness Details Patient is a 59-year-old male complaining of left ear pain that is getting worse over the last few weeks. He denies any acute changes in his hearing or fevers. He tells me he has chronic ear infection issues. He tells me when he wakes up in the morning it is crusted on the outside [facility] Medical History (Updated 05/17/24 @ 10:51 by Marlen Miller PA-C) HLD (hyperlipidemia) Ankle fracture, left Morbid obesity Hypertension Primary osteoarthritis of right hip Gout Rupture of right biceps tendon Surgical History (Updated 05/13/24 @ 12:59 by Emily Grover RN) History of ankle surgery History of right hip replacement History of carpal tunnel repair H/O colonoscopy H/O right wrist surgery History of left hip replacement Family History (Reviewed 02/18/24 @ 13:40 by Alirio Iqbal [facility]) Father COPD (chronic obstructive pulmonary disease) Cancer Hypertension Substance abuse Mother COPD (chronic obstructive pulmonary disease) Hypertension Substance abuse Social History (Updated 03/16/24 @ 09:06 by Jaylon Gimenez [facility]) Housing: House Are you a primary pet care worker to a significant other at home: No Do you presently have visiting nurse or other home services: No Patient Tobacco Use Status: Current everyday Tobacco user Tobacco use type: Cigarette Cigarettes Per Day: 2 Years Smoked: 15 e-Cigarette/Vaping Use: Currently Using Second Hand Smoke Exposure: No Substance Use Type: Marijuana service: No Current occupational status: employed 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, 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 Current occupational exposures/hazards: No Cognitive needs: No Hearing needs: No Vision needs: No Review of Systems Const All systems reviewed & are unremarkable except as noted in HPI and below Physical Exam Vital Signs: Last Vital Signs Pulse 79 05/17/24 10:26 BP 122/90 H 05/17/24 10:26 Pulse Ox 97 05/17/24 10:26 Oxygen Delivery Method Room Air 05/17/24 10:26 BMI result Body Mass Index 47.9 Const General: cooperative, healthy appearing, comfortable and no acute distress Orientation/consciousness: patient oriented x3 HEENT Head: Yes normal to inspection, Yes No palpable skull fracture present and Yes normocephalic Ears: hearing grossly normal bilaterally, external ears normal, EAC's normal, mastoids normal (no TTP) bilaterally and TM abnormal bulging on the left, dull on the left, wth effusion (Bilateral) serosanguinous, erythematous bilateral, with loss of landmarks bilateral and obstructed by cerumen on the right General nose exam: Normal external nose present Face and sinus: Yes normal facial exam Mouth: Normal oral and palatal mucosa present Teeth and gingiva: dentition normal Throat: Yes posterior oropharynx normal Eyes General: appearance normal, both eyes and all related structures Neck Neck: Yes normal visual inspection, Yes full ROM, Yes no lymphadenopathy, Yes no meningeal signs, Yes trachea midline and Yes supple Resp Effort & Inspection: normal respiratory effort and able to speak in complete sentences Skin General skin exam: no rashes or lesions noted Neuro General: patient oriented x3 and no meningeal signs Office Procedures Cerumen Removal From which ear canal was the cerumen removed: right Removal: irrigation Notes: patient tolerated procedure well, no complications and ear canal clear [id number] Irrigation/Lavage Assessment & Plan Assessment & Plan (1) Otitis media: Code(s): H66.90 - Otitis media, unspecified, unspecified ear Qualifiers: Otitis media type: suppurative Chronicity: acute Laterality: bilateral Recurrence: recurrent Spontaneous tympanic membrane rupture: without spontaneous rupture Qualified Code(s): H66.006 - Acute suppurative otitis media without spontaneous rupture of ear drum, recurrent, bilateral Plan: Sent antibiotic to pharmacy, we will do for 7 days instead of 5 as both ears are very infected. Recommended if he has any change in his hearing or increased pain, he follow up with his PCP (2) Otitis externa of left ear: Code(s): H60.92 - Unspecified otitis externa, left ear Qualifiers: Otitis externa type: other infective Chronicity: acute Qualified Code(s): H60.392 - Other infective otitis externa, left ear Plan: Sent drops to pharmacy Plan See above Medications: New amoxicillin 875 mg PO Q12H 14 tabs 0RF wzomsaoy-ftbwaqcca-ZO 3.5-10,000-1 mg/mL-unit/mL-% 4 drps otic (ear) left QID 7 days 10 mL 0RF Coding Level of Care Code Est Pt Level 4 (20116) Diagnoses Recurrent acute suppurative otitis media without spontaneous rupture of tympanic membrane of both sides H66.006 Otitis media type: suppurative Chronicity: acute Laterality: bilateral Recurrence: recurrent Spontaneous tympanic membrane rupture: without spontaneous rupture Other infective acute otitis externa of left ear H60.392 Otitis externa type: other infective Chronicity: acute CPT Codes Office Procedure - CPT: 26883-Vmo Irrigation/Lavage ([id number])
[2024-05-17 10:26] VITALS: BP 122/90; PULSE 79; O2SAT 97; BMI 47.9
== END 2024-05-17 10:53 | disposition home or self-care (01) ==
PROVIDERS: PCP Nurse Practitioner Family; Visit Provider Physician Assistant
DX: H66.006 Acute suppurative otitis media without spontaneous rupture of ear drum, recurrent, bilateral (principal); H60.392 Other infective otitis externa, left ear; H61.21 Impacted cerumen, right ear

== ENCOUNTER → 2024-05-17 09:49 | Outpatient (BNVA) | payer OTHER, SELFPAY | PROVIDERS: PCP Nurse Practitioner Family; Visit Provider Physician Assistant | DX: H66.006 Acute suppurative otitis media without spontaneous rupture of ear drum, recurrent, bilateral (principal); H60.392 Other infective otitis externa, left ear | CPT/HCPCS: 69209; 99212 ==

== ENCOUNTER 2024-05-26 12:43 | Outpatient (AMB) | payer OTHER, SELFPAY ==
[2024-05-26 12:56] VITALS: BMI 47.9
--- NOTE | 2024-05-26 12:56 | MHC.OFFVIS ---
Vital Signs 05/26/24 12:56 Height 5 ft 7 in Weight 306 lb BMI 47.9 Intake Visit Reasons: PO RT CTR repeat 05/13/24 AR Intake Note: Hans is a 59 year old 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 female who presents today post operatively s/p right carpal tunnel release repeat w/ Dr Valle DOS: 05/13/24. Patient reports ongoing numbness and tingling. Denies finger locking. Stitches removed in office today and steri strips applied. Allergies No Known Allergies Allergy (Verified 05/26/24 12:56) HPI HPI PO RT CTR repeat 05/13/24 AR: Details: Patient is a 59-year-old male who presents for postoperative evaluation status post right repeat carpal tunnel release, DOS 05/13/2024. Today, the patient reports that he is well, but he is still experiencing dense numbness in the right hand. Patient states he has no concerns with the incision site. Patient reports that he does have carpal tunnel syndrome on the left, but states he would like to hold off on any surgical intervention on the left side at this time. [facility] Medical History (Updated 05/26/24 @ 13:16 by LORRI Ronquillo) HLD (hyperlipidemia) Ankle fracture, left Morbid obesity Hypertension Primary osteoarthritis of right hip Gout Rupture of right biceps tendon Surgical History (Updated 05/13/24 @ 12:59 by Emily Grover RN) History of ankle surgery History of right hip replacement History of carpal tunnel repair H/O colonoscopy H/O right wrist surgery History of left hip replacement Family History Father COPD (chronic obstructive pulmonary disease) Cancer Hypertension Substance abuse Mother COPD (chronic obstructive pulmonary disease) Hypertension Substance abuse Social History Housing: House Are you a primary career development facilitator to a significant other at home: No Do you presently have visiting nurse or other home services: No Patient Tobacco Use Status: Current everyday Tobacco user Tobacco use type: Cigarette Cigarettes Per Day: 2 Years Smoked: 15 e-Cigarette/Vaping Use: Currently Using Second Hand Smoke Exposure: No Substance Use Type: Marijuana service: No Current occupational status: employed 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 Neuro: Decreased sensation in the tips of the digits of the median nerve distribution of the right hand Normal sensation of the tips of all other digits of the right hand at this time Vascular: Cap refill brisk Pain: Patient reports no tenderness to palpation about the incision site No tenderness to palpation of the A1 pulleys of the right middle and ring fingers However, patient does report pain with range of motion testing of the right middle and ring fingers associated with locking and catching ROM: Areas visible and palpable locking and catching of the right middle and ring fingers Patient is able to extend all other digits and flex to make a closed fist fully and without difficulty Skin: Well approximated and well healing incision site noted on the volar aspect of the patient's right wrist No evidence of infection General: No ecchymosis, erythema, or evidence of infection. Psych: Appears grossly normal Affect normal Attitude cooperative Assessment & Plan Assessment & Plan (1) Stiffness of right hand joint: Code(s): M25.641 - Stiffness of right hand, not elsewhere classified Category: Medical Plan 1. Right carpal tunnel syndrome status post right repeat carpal tunnel release DOS 05/13/2024 Patient appears to be recovering well postoperatively Patient is educated about the typical recovery course Patient is informed that due to him having dense numbness prior to surgery, there is an increased risk that he will not get normal sensation back, and patient expresses understanding of this Patient was referred to occupational therapy for range of motion of the right hand due to postoperative stiffness Patient is amenable to this plan 2. Trigger finger, right middle finger 3. Trigger finger, right ring finger Patient is educated about this condition and the treatment options available, namely steroid injections and surgery Patient states that he would like to explore surgical intervention, as he would like the most effective method possible of eliminating his locking and catching However, the patient states he would like to hold off for a few weeks before getting registered fraying surgeries to allow the incision site for the right carpal tunnel release to heal Patient will follow-up in 4-6 weeks with me for evaluation of trigger fingers and discussion of further treatment options, sooner with any acute concerns Orders: Orders OT Evaluation and Treatment Today M25.641 - Stiffness of right hand, not elsewhere classified Coding Level of Care Code Est Pt Level 3 (15302) Diagnoses Stiffness of right hand joint M25.641
== END 2024-05-26 13:17 | disposition home or self-care (01) ==
LOC: HO.HOS 12:43
PROVIDERS: PCP Nurse Practitioner Family
DX: M25.641 Stiffness of right hand, not elsewhere classified (principal)
CPT/HCPCS: 99024

== ENCOUNTER → 2024-05-26 12:43 | Outpatient (BNVA) | payer OTHER, SELFPAY | PROVIDERS: PCP Nurse Practitioner Family | DX: M25.641 Stiffness of right hand, not elsewhere classified (principal); M65.331 Trigger finger, right middle finger; M65.341 Trigger finger, right ring finger; Z98.890 Other specified postprocedural states | CPT/HCPCS: 99212 ==

== ENCOUNTER 2024-06-23 12:42 | Outpatient (AMB) | payer OTHER, SELFPAY ==
[2024-06-23 12:48] VITALS: BP 120/80; PULSE 90; O2SAT 94; BMI 48.1
--- NOTE | 2024-06-23 12:48 | A.OFFPC_ITS ---
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 The condition results in hand contractions and was recognized as progressively worsening by the physical therapist. He was instructed to use corrective devices for eight weeks. The patient had carpal tunnel surgery approximately two to three weeks ago, performed by Dr. Sasha Valle. Post-surgery recovery is ongoing with some retained numbness but no pain and improved range of motion. Morbid obesity is present, with a BMI of 48.1. The patient has attempted diet and exercise as intervention methods. There have been failed attempts to obtain insurance coverage for anti-obesity medication, specifically Wegovy. Tobacco use has been challenging to cease, with the patient expressing difficulty quitting despite intentions. He often finds himself smoking when consuming alcohol. pt of the LDCT program at [facility] HTN: stable Social History - The patient consumes alcohol primarily on weekends, with occasional mid-week social drinking. - Despite a claim of low food intake, th e patient acknowledges excessive alcohol intake and a preference for shots. - Tobacco use is recreational, often tri ggered by social drinking sessions. - The patient shows awareness of physica l inactivity and expresses a desire for structured regimes to improve health. Review of Systems - Musculoskeletal: Reports shoulder pain , knee pain; denies any new chest pain. - Neurological: Reports numbness post-ca rpal tunnel surgery. - Genitourinary: Denies current urinary symptoms such as difficulty starting a stream, nocturia more than twice per night; previous blood in urine (urology) - Respiratory: Denies current issues; pa rticipates in yearly lung screening. Physical Exam Results - Plan - Dupuytren's Contracture: Continue use of corrective devices for hand. Follow- up with orthopod for further intervention post-therapy phase. - Carpal Tunnel Syndrome: Monitor post-s urgical recovery; await full resolution of numbness. - Morbid Obesity: Insurance reauthorizat ion attempted for Wegovy; reinforce low- calorie diet and regular physical activity. - Tobacco use: Encourage decreased use; consider alternative cessation methods if applicable. Patient was informed and verbally consented to the use of an ambient scribe for clinic note documentation during this visit. Discussion Notes I discussed with the patient the management approaches for Dupuytren's contracture, including the current reliance on corrective devices and potential surgical options if the condition does not improve. We reviewed the importance of completing the post-surgical recovery phase for carpal tunnel syndrome and remaining vigilant about the symptoms. For morbid obesity, I reiterated the importance of dietary management combined with exercise. I am resubmitting authorization for Wegovy, acknowledging the insurance-related challenges encountered, and discussed alternative pathways. The ongoing shoulder and knee discomfort were addressed, suggesting vigilance and conservative management. I acknowledged his continued difficulties with tobacco cessation and suggested exploring structured programs or alternative support mechanisms. Patient Instructions - Continue with corrective devices for D upuytren's contracture. - Follow post-operative instructions for carpal tunnel syndrome and report any changes in symptoms. - Maintain a low-calorie diet and engage in regular physical activity; monitor progress and update during next visit. - Consider additional support for tobacc o cessation; explore cessation programs as feasible. [facility] Medical History HLD (hyperlipidemia) Ankle fracture, left Morbid obesity Hypertension Primary osteoarthritis of right hip Gout Rupture of right biceps tendon Surgical History History of ankle surgery History of right hip replacement History of carpal tunnel repair H/O colonoscopy H/O right wrist surgery History of left hip replacement Family History Father COPD (chronic obstructive pulmonary disease) Cancer Hypertension Substance abuse Mother COPD (chronic obstructive pulmonary disease) Hypertension Substance abuse Social History Housing: House Are you a primary care services manager to a significant other at home: No Do you presently have visiting nurse or other home services: No Patient Tobacco Use Status: Current everyday Tobacco user Tobacco use type: Cigarette Cigarettes Per Day: 2 Years Smoked: 15 e-Cigarette/Vaping Use: Currently Using Second Hand Smoke Exposure: No Substance Use Type: Marijuana service: No Current occupational status: employed 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, 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: No Do you have trouble paying your heating and electricity bill?: No Do you have trouble taking care of your child, family member or friend?: No Do you have trouble with day-to-day activities such as bathing, preparing meals, shopping, managing finances, etc.?: I choose not to answer this question Are you currently unemployed and looking for a job?: No Are you interested in more education?: No Please select the resources that you would like help with: None Currently or been in a relationship where the following occur: No concerns reported THRIVE Score: 1 AISHA-7 AMB Questionnaire AISHA-7 Date AISHA - 7 assessed: 02/18/24 Source: Developed by Drs. Kevin Grant, Gemini Collazo, Marcello Pinzon and colleagues, with an educational cara from [employer]. Physical exam (Primary Care) Vital Signs: Last Vital Signs Pulse 90 06/23/24 12:48 BP 120/80 06/23/24 12:48 Pulse Ox 94 06/23/24 12:48 Oxygen Delivery Method Room Air 06/23/24 12:48 BMI result Body Mass Index 48.1 Tobacco/Smoking Status: Tobacco use Status Tobacco use date assessed 09/25/23 06/23/24 12:49 Patient Tobacco Use Status Current everyday Tobacco 06/23/24 12:49 Tobacco use type Cigarette 06/23/24 12:49 e-Cigarette/Vaping Use Currently Using 06/23/24 12:49 Thrive Assessment: Date of Thrive Assessment Date Thrive assessed 06/23/24 06/23/24 12:49 Currently or been in a relationship where the following occur: No concerns reported Coding Level of Care Code Est Pt Level 3 (49883) Diagnoses Stiffness of right hand joint M25.641 Severe carpal tunnel syndrome of both wrists G56.03 Morbid obesity E66.01 HTN (hypertension) I10 Dyslipidemia E78.5 Screening PSA (prostate specific antigen) Z12.5 Assessment & Plan Assessment & Plan (1) Stiffness of right hand joint: Code(s): M25.641 - Stiffness of right hand, not elsewhere classified Category: Medical (2) Severe carpal tunnel syndrome of both wrists: Code(s): G56.03 - Carpal tunnel syndrome, bilateral upper limbs Category: Medical (3) Morbid obesity: Code(s): E66.01 - Morbid (severe) obesity due to excess calories Category: Medical (4) HTN (hypertension): Code(s): I10 - Essential (primary) hypertension Category: Medical (5) Dyslipidemia: Code(s): E78.5 - Hyperlipidemia, unspecified Category: Medical (6) Screening PSA (prostate specific antigen): Code(s): Z12.5 - Encounter for screening for malignant neoplasm of prostate Category: Medical Plan . Orders: Orders Complete Blood Count Auto Diff Today E66.01 - Morbid (severe) obesity due to excess calories, E78.5 - Hyperlipidemia, unspecified, I10 - Essential (primary) hypertension Comprehensive [place]. Panel Fast Today E66.01 - Morbid (severe) obesity due to excess calories, E78.5 - Hyperlipidemia, unspecified, I10 - Essential (primary) hypertension TSH reflex Free T4 Today E66.01 - Morbid (severe) obesity due to excess calories, E78.5 - Hyperlipidemia, unspecified, I10 - Essential (primary) hypertension Lipid Panel Today E66.01 - Morbid (severe) obesity due to excess calories, E78.5 - Hyperlipidemia, unspecified, I10 - Essential (primary) hypertension UA CC w/rflx Micro + Cult Today E66.01 - Morbid (severe) obesity due to excess calories, E78.5 - Hyperlipidemia, unspecified, I10 - Essential (primary) hypertension Prostate Specific Antigen Scr Today Z12.5 - Encounter for screening for consuelo gnant neoplasm of prostate Medications: New semaglutide (weight loss) (Francesca) administer weeks 1 through 4 of therapy 0.25 mg (0.5 mL) subcut QWEEK 2 mL 0RF
== END 2024-06-23 13:44 | disposition home or self-care (01) ==
PROVIDERS: PCP Nurse Practitioner Family; Visit Provider Nurse Practitioner Family
DX: G56.03 Carpal tunnel syndrome, bilateral upper limbs (principal); M25.641 Stiffness of right hand, not elsewhere classified; E66.01 Morbid (severe) obesity due to excess calories; Z68.42 Body mass index [BMI] 45.0-49.9, adult; I10 Essential (primary) hypertension; E78.5 Hyperlipidemia, unspecified; Z12.5 Encounter for screening for malignant neoplasm of prostate

== ENCOUNTER → 2024-06-23 12:42 | Outpatient (BNVA) | payer OTHER, SELFPAY | PROVIDERS: PCP Nurse Practitioner Family; Visit Provider Nurse Practitioner Family | DX: M25.461 Effusion, right knee (principal); G56.03 Carpal tunnel syndrome, bilateral upper limbs; E66.01 Morbid (severe) obesity due to excess calories; E78.5 Hyperlipidemia, unspecified | CPT/HCPCS: 99212 ==

== ENCOUNTER 2024-07-06 08:38 | Outpatient (RCR) | payer OTHER, SELFPAY ==
--- NOTE | 2024-06-03 10:55 | MHC.OT.EP ---
[address] [phone] Occupational Therapy Plan of Care Patient Name: Hans Simon Date of Evaluation: 06/03/24 Diagnosis: R hand CTR Pain Location: MF is most painful 8/10 Pain Score: 6 Pain Scale Used: Numeric (0 - 10) Aggravating Factors: Exercises of the hand Alleviating Factors: none reported Assessment: Pt is a 59yr. old R hand dominant male who reports having CT sx's for years. He had surgery on 05/13 to decrease the sx's of pain/ numbness and tingling. He reports since the surgery (3 wks post op) he is unable to make a composite fist and cannot lay his hand flat or weight bear into his UE. Pt has limited AROM of his hand (RF/MF most affected w/ decreased ROM, pain, and swelling (possibly due to trigger finger))., weakness and the inability to hold items w/ his R hand. Pt has been referred to skilled OT therapy to decrease pain/ swelling, and increase AROM, strength, and fucntional use of his dominant hand Frequency and Duration: The patient will be seen 2 xs a week for 4 weeks Short Term Goals: Pt will be compliant w/ his HEP Pt will have MEDELLIN of his R IF 200 Pt will adhere to scar massage as prescribed Residential Goals: Pt will report 2/10 pain w/ use of his hand Pt will gain 20 lbs of Treatment Plan: Therapeutic Exercise Therapeutic Activity Home Exercise Program Splinting Neuro Re-ed Patient Education Desensitization/Sensory Re-ed Edema Control ADL Training Ultrasound NMES Iontophoresis Paraffin Fluidotherapy MHP Cold Packs Joint Mobilization Soft Tissue Mobilization Kinesiotaping Other (see comments) Electronically Signed By: Joyce Morley OTR/L Please Sign and return to therapist. Thank you once again for your referral.
--- NOTE | 2024-06-03 10:58 | MHC.OT.EP ---
[address] [phone] Occupational Therapy Plan of Care Patient Name: Hans Simon Date of Evaluation: 06/03/24 Diagnosis: R hand CTR Pain Location: MF is most painful 8/10 Pain Score: 6 Pain Scale Used: Numeric (0 - 10) Aggravating Factors: Exercises of the hand Alleviating Factors: none reported Assessment: Pt is a 59yr. old R hand dominant male who reports having CT sx's for years. He had surgery on 05/13 to decrease the sx's of pain/ numbness and tingling. He reports since the surgery (3 wks post op) he is unable to make a composite fist and cannot lay his hand flat or weight bear into his UE. Pt has limited AROM of his hand (RF/MF most affected w/ decreased ROM, pain, and swelling (possibly due to trigger finger))., weakness and the inability to hold items w/ his R hand. Pt has been referred to skilled OT therapy to decrease pain/ swelling, and increase AROM, strength, and fucntional use of his dominant hand Frequency and Duration: The patient will be seen 2 xs a week for 4 weeks Short Term Goals: Pt will be compliant w/ his HEP Pt will have MEDELLIN of his R IF 200 Pt will adhere to scar massage as prescribed Senior Living Goals: Pt will report 2/10 pain w/ use of his hand Pt will gain 20 lbs of R Plastics Heat Welder strength Pt will have a DASH >30% Treatment Plan: Therapeutic Exercise Therapeutic Activity Home Exercise Program Splinting Neuro Re-ed Patient Education Desensitization/Sensory Re-ed Edema Control ADL Training Ultrasound NMES Iontophoresis Paraffin Fluidotherapy MHP Cold Packs Joint Mobilization Soft Tissue Mobilization Kinesiotaping Other (see comments) Electronically Signed By: Joyce Morley OTR/L Please Sign and return to therapist. Thank you once again for your referral.
== END 2024-11-16 10:50 | disposition home or self-care (01) ==
LOC: HO.OT 08:38
PROVIDERS: PCP Nurse Practitioner Family
DX: M25.641 Stiffness of right hand, not elsewhere classified (principal)
CPT/HCPCS: 97035; 97110; 97140; 97165; 97530

== ENCOUNTER 2024-07-07 08:44 | Outpatient (AMB) | payer OTHER, SELFPAY ==
--- NOTE | 2024-07-07 08:58 | A.OFFVIS_ITS ---
Vital Signs 07/07/24 09:00 Height 57 ft Weight 307 lb BMI 0.5 Handedness Right Intake Visit Reasons: OV- R MF and RF trigger fingers and ROM check Intake Note: Hans is a 59 year old 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 female who presents today for a follow up visit of his right ring and middle finger trigger. Patient reports he has been attending occupational therapy, his last day is tomorrow and expresses he thinks it has been helpful He says OT provided him for splint for his finger to immobilize them. He expresses pain on the sides of his ring and middle finger of the right hand, describes it as throbbing, with some numbness at the tips. Allergies No Known Allergies Allergy (Verified 07/07/24 09:01) HPI HPI OV- R MF and RF trigger fingers and ROM check: Details: Patient is a 59-year-old right-hand dominant male who presents for evaluation of right middle and ring finger trigger fingers, as well as for [id number] check wrist status post carpal tunnel release. The patient states while at occupational therapy for stiffness after carpal tunnel release, he was provided with braces to be worn on the ring middle fingers of the right hand to prevent his fingers from triggering, but states that he feels it wearing these have caused his fingers to remain stiff. Patient states that he is able to passively make a closed fist, but is unable to make a full closed fist middle and ring fingers of the right hand. Patient states he would like to proceed with operative intervention on the right middle and ring fingers as the locking and catching of the digits causes him significant discomfort. Patient does report that he is still experiencing numbness and tingling in the right hand after his carpal tunnel release, but understands that because he was numb all the time prior to surgery he has an increased chance of not getting normal sensation back. No other acute complaints or concerns at this time. [facility] Medical History HLD (hyperlipidemia) Ankle fracture, left Morbid obesity Hypertension Primary osteoarthritis of right hip Gout Rupture of right biceps tendon Surgical History History of ankle surgery History of right hip replacement History of carpal tunnel repair H/O colonoscopy H/O right wrist surgery History of left hip replacement Family History Father COPD (chronic obstructive pulmonary disease) Cancer Hypertension Substance abuse Mother COPD (chronic obstructive pulmonary disease) Hypertension Substance abuse Social History Housing: House Are you a primary care rep to a significant other at home: No Do you presently have visiting nurse or other home services: No Patient Tobacco Use Status: Current everyday Tobacco user Tobacco use type: Cigarette Cigarettes Per Day: 2 Years Smoked: 15 e-Cigarette/Vaping Use: Currently Using Second Hand Smoke Exposure: No Substance Use Type: Marijuana service: No Current occupational status: employed 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 Neuro: Decreased sensation in the tips of the digits of the median nerve distribution of the right hand Normal sensation of the tips of all other digits of the right hand at this time Vascular: Cap refill brisk Pain: Patient reports no tenderness to palpation about the incision site No tenderness to palpation of the A1 pulleys of the right middle and ring fingers However, patient does report pain with range of motion testing of the right middle and ring fingers associated with locking and catching ROM: Areas visible and palpable locking and catching of the right middle and ring fingers Patient is able to extend all other digits and flex to make a closed fist fully and without difficulty Skin: Well approximated and well healing incision site noted on the volar aspect of the patient's right wrist No evidence of infection General: No ecchymosis, erythema, or evidence of infection. Psych: Appears grossly normal Affect normal Attitude cooperative Assessment & Plan Assessment & Plan (1) Trigger finger, right ring finger: Code(s): M65.341 - Trigger finger, right ring finger Category: Medical (2) Trigger finger, right middle finger: Code(s): M65.331 - Trigger finger, right middle finger Category: Medical (3) Right carpal tunnel syndrome: Code(s): G56.01 - Carpal tunnel syndrome, right upper limb Category: Medical Plan 1. trigger finger, right middle finger 2. Trigger finger, right ring finger I educated the patient about the condition. I discussed both operative and nonoperative treatment options. The patient would like to proceed with surgery. The risks and benefits of operative treatment were discussed with the patient and the patient wishes to proceed with surgery. These risks include, but are not limited to, risk of damage to blood vessels, nerves, tendons, infection, recurrence, incomplete relief of preoperative symptoms, persistent pain, possible need for further surgery, and the risks associated with regional blocks and/or anesthesia. Plan is to take the patient to the operating room at some point in the next few weeks for the following procedures: 1. Right ring finger trigger release under local anesthesia 2. Right middle finger trigger release under local anesthesia All of the preoperative paperwork including the consent was discussed today. All of the patient's questions were answered in the clinic today. The patient understands that they will be in contact with our assembler surgical garment to discuss scheduling their procedure. Patient denies diabetes, blood thinners, asthma, heart issues, lung issues, kidney issues, or current smoking. 3. Right carpal tunnel syndrome status post repeat carpal tunnel release Patient appears to be recovering well postoperatively Patient is educated about the typical recovery course Patient is educated that it can take 9 months for sensation to return after carpal tunnel release Patient is also educated that because he was densely numb prior to surgery, there is a chance he does not normal sensation Patient states understanding this Coding Level of Care Code Est Pt Level 4 (36207) Diagnoses Trigger finger, right ring finger M65.341 Trigger finger, right middle finger M65.331 Right carpal tunnel syndrome G56.01
== END 2024-07-07 09:46 | disposition home or self-care (01) ==
PROVIDERS: PCP Nurse Practitioner Family
DX: M65.341 Trigger finger, right ring finger (principal); M65.331 Trigger finger, right middle finger; G56.01 Carpal tunnel syndrome, right upper limb
CPT/HCPCS: 99214

== ENCOUNTER → 2024-07-07 08:44 | Outpatient (BNVA) | payer OTHER, SELFPAY | PROVIDERS: PCP Nurse Practitioner Family | DX: M65.341 Trigger finger, right ring finger (principal); M65.331 Trigger finger, right middle finger; G56.01 Carpal tunnel syndrome, right upper limb | CPT/HCPCS: 99212 ==

== ENCOUNTER 2024-08-04 06:51 | Outpatient (REF) | payer OTHER, SELFPAY ==
[2024-08-04 09:54] LABS: MANUAL DIFF FLAG NO
[2024-08-04 10:03] LABS: Basophils Absolute Auto 0.1 X10*3/uL (0.0-0.2); Basophils Percent Auto 0.8 % (0-2); Eosinophils Absolute Auto 0.2 X10*3/uL (0.0-0.4); Eosinophils Percent Auto 2.4 % (0-4); Hematocrit 49.3 % (42.0-52.0); Hemoglobin 16.5 g/dl (14.0-18.0); Imm Gran Abs Auto 0.04 X10*3/uL (0.00-0.03); Imm Gran Pct Auto 0.5 % (0.0-0.4); Lymphocytes Absolute Auto 2.4 X10*3/uL (1.2-4.9); Lymphocytes Percent Auto 27.9 % (20-40); Mean Corpuscular HGB Conc 33.5 g/dl (31.0-36.0); Mean Corpuscular Hemoglobin 30.3 pg (27.0-33.0); Mean Corpuscular Volume 90.5 fL (80.0-98.0); Monocytes Absolute Auto 0.7 X10*3/uL (0.1-1.2); Monocytes Percent Auto 8.3 % (2-11); Neutrophils Absolute Auto 5.3 x10*3/uL (2.0-8.3); Neutrophils Percent Auto 60.1 % (45-73); Platelet Count 207 X10*3/uL (160-400); Red Blood Count 5.45 X10*6/uL (4.60-5.80); Red Cell Distribution Width 13.4 % (11.0-16.0); White Blood Count 8.8 X10*3/uL (4.8-10.8)
[2024-08-04 10:04] LABS: Appearance Urine Clear; Color Urine Yellow; Glucose Urine UA Negative (Negative); Leukocyte Esterase Urine Negative (Negative); Nitrite Urine Negative (Negative); Specific Gravity - Urine 1.025 (1.005-1.025); UMIC TRIGGER UACC YES; Urine Blood Small (1+) (Negative); Urine Ketones Negative (Negative); Urine Protein Trace mg/dL (Neg-Trace)
[2024-08-04 10:08] LABS: Bacteria Urine None Seen (None Seen); Hyaline Casts Urine 0-2 /LPF (0-2); Squamous Epithelial Cell Urine 0-2 /HPF (0-2); WBC Urine 0-5 /HPF (0-5)
[2024-08-04 10:17] LABS: Alanine Aminotransferase 27 U/L (0-40); Albumin Level 4.2 g/dL (3.5-5.0); Anion Gap 13 (12-20); Aspartate Amino Transferase 29 U/L (5-37); Bilirubin Total 0.4 mg/dL (0.0-1.0); Blood Urea Nitrogen 16 mg/dL (9-16); Calcium 9.5 mg/dL (8.4-10.2); Carbon Dioxide 30 mmol/L (22-29); Chloride 102 mmol/L (96-108); Cholesterol 152 mg/dL (<200); Estimated Glomerular Filt Rate > 60; Glucose Fasting 144 mg/dL (60-99); HDL Cholesterol 39 mg/dL (>40); LDL Cholesterol Calculated 91 mg/dL (<100); Potassium 4.8 mmol/L (3.3-5.1); Sodium 140 mmol/L (135-145); Total Protein 7.3 g/dL (6.5-8.0); Triglycerides 113 mg/dL (<150)
[2024-08-04 10:33] LABS: Alkaline Phosphatase 74 U/L (39-117)
[2024-08-04 10:37] LABS: Prostate Specific Antigen Scr 0.45 ng/mL (<0.05-4.0)
[2024-08-04 10:51] LABS: TSH reflex Free T4 1.62 uIU/mL (0.32-4.0)
== END 2024-08-04 06:52 | disposition home or self-care (01) ==
LOC: HO.HMGCLDS 06:51
PROVIDERS: PCP Nurse Practitioner Family; Visit Provider Nurse Practitioner Family
DX: E78.5 Hyperlipidemia, unspecified (principal); I10 Essential (primary) hypertension; E66.01 Morbid (severe) obesity due to excess calories; Z12.5 Encounter for screening for malignant neoplasm of prostate
CPT/HCPCS: 36415; 80053; 80061; 81001; 84153; 84443; 85025

== ENCOUNTER 2024-08-19 08:05 | Outpatient (REF) | payer OTHER, SELFPAY ==
[2024-08-19 10:02] LABS: Appearance Urine Clear; Color Urine Yellow; Glucose Urine UA Negative (Negative); Leukocyte Esterase Urine Negative (Negative); Nitrite Urine Negative (Negative); PH 6.5 (5.0-9.0); Specific Gravity - Urine 1.015 (1.005-1.025); UMIC TRIGGER UACC YES; Urine Blood Trace (Negative); Urine Ketones Negative (Negative); Urine Protein Negative (Neg-Trace)
[2024-08-19 10:05] LABS: Bacteria Urine None Seen (None Seen); Hyaline Casts Urine 0-2 /LPF (0-2); Squamous Epithelial Cell Urine 0-2 /HPF (0-2); WBC Urine 0-5 /HPF (0-5)
[2024-08-19 10:39] LABS: Alanine Aminotransferase 25 U/L (0-40); Albumin Level 4.3 g/dL (3.5-5.0); Alkaline Phosphatase 70 U/L (39-117); Anion Gap 10 (12-20); Aspartate Amino Transferase 26 U/L (5-37); Bilirubin Total 0.4 mg/dL (0.0-1.0); Blood Urea Nitrogen 15 mg/dL (9-16); Calcium 8.9 mg/dL (8.4-10.2); Carbon Dioxide 28 mmol/L (22-29); Chloride 102 mmol/L (96-108); Estimated Glomerular Filt Rate > 60; Glucose Random 126 mg/dL (60-115); Potassium 4.2 mmol/L (3.3-5.1); Sodium 136 mmol/L (135-145); Total Protein 7.3 g/dL (6.5-8.0)
[2024-08-19 10:42] LABS: Estimated Average Glucose 143 mg/dL; Hemoglobin A1C 202.9496 umol/L; Hemoglobin A1c % 6.6 % (<6.0); Total Hemoglobin (HGBA1C) 4185.1938 umol/L
[2024-08-19 10:48] LABS: Creatinine Urine 83.51 mg/dL; Microalbum/Creatinine Ratio Ur 16.7 ug/mg cr (<30)
== END 2024-08-19 08:06 | disposition home or self-care (01) ==
LOC: HO.HMGCLDS 08:05
PROVIDERS: PCP Nurse Practitioner Family; Visit Provider Nurse Practitioner Family
DX: E11.9 Type 2 diabetes mellitus without complications (principal)
CPT/HCPCS: 36415; 80053; 81001; 81003; 82043; 82570; 83036

== ENCOUNTER → 2024-09-03 08:16 | Outpatient (BNVA) | payer OTHER, SELFPAY | PROVIDERS: PCP Nurse Practitioner Family ==

== ENCOUNTER 2024-09-09 08:28 | Day surgery (SDC) | payer OTHER, SELFPAY ==
[2024-09-09 08:55] VITALS: BP 123/84; PULSE 105; RESP 18; TEMP 36.4; O2SAT 95; BMI 47.0
--- NOTE | 2024-09-09 09:49 | MHC.SHP ---
Pre-Procedural Eval Section A - 24 Hr Update-Section A only Date of Service: 09/09/24 The patient is an INPATIENT: No Changes since office visit: No Cold of Flu in the past 2 weeks, No New Medical Problems, No Changes in Medication and No Patient answered all questions The patient has been examined within 24 hours of the surgical procedure. The History & Physical has been completed within 30 days and I have reviewed it.: Yes Section B - Complete if H&P > 30 days Chief Complaint: Trigger finger, right middle and ring finger Allergies: Allergies Allergy/AdvReac Type Severity Reaction Status Date / Time No Known Allergies Allergy Verified 09/09/24 08:53 Plan Diagnosis/Plan: Unchanged I have reviewed the history and physical and performed a pertinent physical examination on my patient. No changes have occurred unless specified. Time Spent With Patient Time: Total time managing care of this patient today ____ minutes.
[2024-09-09 11:09] VITALS: BP 128/80; PULSE 78; RESP 18
--- NOTE | 2024-09-09 11:19 | W.PM.OPN ---
Operative Note Operative Note Date of Service: 09/09/24 Narrative: Operative Note Preop diagnosis: 1. Right middle finger Trigger finger 2. Right ring finger trigger finger Postop diagnosis: 1. Right middle finger Trigger finger 2. Right ring finger trigger finger 3. Right middle finger PIP stiffness 4. Right ring finger PIP stiffness Procedure: 1. Right middle finger A1 catarino release 2. Right middle finger PIP joint closed manipulation under anesthesia 3. Right ring finger A1 catarino release 4. Right ring finger PIP joint closed manipulation under anesthesia Surgeon: Sasha Valle MD Real Estate Services Coordinator: Enoch BLACKMON Anesthesia: local block using 1% lidocaine with epinephrine Findings: No locking or catching after A1 catarino release EBL: Less than 5 mL Tourniquet time: None Specimens: None Complications: None Disposition: Brought to recovery room in stable condition Plan: Follow-up for 10-14 days for wound check and suture removal Indications: The patient is 59 years old, with a right middle finger and right ring finger trigger fingers that have been unresponsive to nonoperative management. The risks and benefits of operative treatment including but not limited to risk of damage to blood vessels, nerves, tendons, infection, persistent pain, persistent symptoms, recurrence or possible need for additional surgery were discussed with the patient and the patient wishes to proceed with surgery. Procedure: Once consent was obtained a local block was performed in the preop area using a combination of 1% lidocaine with epinephrine. The patient was then brought back to the operating suite and placed on the operative table in supine position. The right upper extremity was prepped and draped in a standard surgical fashion. Once assured that we had a good block, a 1.5 cm oblique incision was made centered over the A1 catarino of the right middle finger . The incision was made through the skin to the subcutaneous tissues using a #15 blade. Careful dissection was made down to the level of the A1 catarino using tenotomy scissors, with care being taken to protect the nearby neurovascular structures. A longitudinal incision was made in the A1 catarino 1st using a #15 blade, then using tenotomy scissors under direct visualization. The A1 catarino was noted to be thickened. Following our A1 catarino release, we no longer saw any locking or catching of the digit with flexion and extension. The patient was noted to have an approximately 25 degree PIP joint flexion contracture. We gently performed a closed manipulation under anesthesia and were able to eventually bring the PIP joint into full extension. Once assured that we had a good block, a 1.5 cm oblique incision was made centered over the A1 catarino of the right ring finger . The incision was made through the skin to the subcutaneous tissues using a #15 blade. Careful dissection was made down to the level of the A1 catarino using tenotomy scissors, with care being taken to protect the nearby neurovascular structures. A longitudinal incision was made in the A1 catarino 1st using a #15 blade, then using tenotomy scissors under direct visualization. The A1 catarino was noted to be thickened. Following our A1 catarino release, we no longer saw any locking or catching of the digit with flexion and extension. The patient was noted to have an approximately 15 degree PIP joint flexion contracture. We gently performed a closed manipulation under anesthesia and were able to bring the PIP joint into full extension. Once satisfied with our A1 catarino releases and manipulation of the PIP joints, the wounds were copiously irrigated with normal saline and hemostasis was obtained with a brief period of local pressure. The skin edges were reapproximated with some 5.0 nylon suture material and a sterile dressing was applied. We showed him some [id number] exercises in the operating room that he is to perform after he removes his dressing in 5 days. The patient appears to have tolerated the procedure well and with no complications. All digits were well vascularized at the conclusion of the case.
== END 2024-09-09 11:21 | disposition home or self-care (01) ==
PROVIDERS: PCP Nurse Practitioner Family; Visit Provider Orthopaedic Surgery
PROC: (CPT 26055; principal; 2024-09-09 10:30)
DX: M65.331 Trigger finger, right middle finger (principal); M65.341 Trigger finger, right ring finger; M24.541 Contracture, right hand; M79.644 Pain in right finger(s); R20.0 Anesthesia of skin; I10 Essential (primary) hypertension; E78.5 Hyperlipidemia, unspecified; E66.01 Morbid (severe) obesity due to excess calories; F17.210 Nicotine dependence, cigarettes, uncomplicated; Z98.890 Other specified postprocedural states
CPT/HCPCS: 26055 ×2; 26340 ×2; J0171; J2003

== ENCOUNTER → 2024-09-09 08:28 | Outpatient (BNV) | payer OTHER, SELFPAY | PROVIDERS: PCP Nurse Practitioner Family; Visit Provider Orthopaedic Surgery | DX: M65.331 Trigger finger, right middle finger (principal); M65.341 Trigger finger, right ring finger | CPT/HCPCS: 26055 ==

== ENCOUNTER 2024-09-22 08:36 | Outpatient (AMB) | payer OTHER, SELFPAY ==
--- NOTE | 2024-09-22 08:38 | MHC.OFFVIS ---
Vital Signs 09/22/24 08:39 Height 5 ft 7 in Weight 299 lb BMI 46.8 Intake Visit Reasons: PO-Rt MF & RF Trigger Release 09/09/24 Intake Note: Hans is a 59 year old male who presents today for his first post operative visit s/p Right Middle and Ring finger trigger release 09/09/24. Sutures removed & Steris applied, but are not sticking well to his skin. Patient is doing well , he continues to have some swelling. The middle finger is still unable to fully extend. Allergies No Known Allergies Allergy (Verified 09/09/24 08:53) HPI HPI PO-Rt MF & RF Trigger Release 09/09/24: Details: Hans is a 59 year old male who presents today for his first post operative visit s/p Right Middle and Ring finger trigger release 09/09/24. Sutures removed & Steris applied, but are not sticking well to his skin. Patient is doing well , he continues to have some swelling. The middle finger is still unable to fully extend. [facility] Medical History HLD (hyperlipidemia) Ankle fracture, left Morbid obesity Hypertension Primary osteoarthritis of right hip Gout Rupture of right biceps tendon Surgical History History of ankle surgery History of right hip replacement History of carpal tunnel repair H/O colonoscopy H/O right wrist surgery History of left hip replacement Family History Father COPD (chronic obstructive pulmonary disease) Cancer Hypertension Substance abuse Mother COPD (chronic obstructive pulmonary disease) Hypertension Substance abuse Social History Housing: House Are you a primary child care education coordinator to a significant other at home: No Do you presently have visiting nurse or other home services: No Patient Tobacco Use Status: Current everyday Tobacco user Tobacco use type: Cigarette Cigarettes Per Day: 2 Years Smoked: 15 e-Cigarette/Vaping Use: Currently Using Second Hand Smoke Exposure: No Substance Use Type: Marijuana service: No Current occupational status: employed 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 Neuro: Normal sensation of the tips of all digits of the right hand at this time Vascular: Cap refill brisk Pain: No tenderness to palpation about the incision sites over the A1 pulleys of the right middle and ring fingers Patient does report some very minor discomfort with the extremes of range of motion of the right hand ROM: Patient is able to get close to making a closed fist, and is able to extend all digits of the right hand fully and without difficulty Skin: Well approximated and well healing incision sites noted over the A1 pulleys of the left middle and ring fingers General: No ecchymosis, erythema, or evidence of infection. Psych: Appears grossly normal Affect normal Attitude cooperative Assessment & Plan Assessment & Plan (1) Stiffness of right hand joint: Code(s): M25.641 - Stiffness of right hand, not elsewhere classified Category: Medical (2) Trigger finger, right ring finger: Code(s): M65.341 - Trigger finger, right ring finger Category: Medical (3) Trigger finger, right middle finger: Code(s): M65.331 - Trigger finger, right middle finger Category: Medical Plan 1. Status post right middle and ring finger trigger releases 2. Stiffness of right hand DOS 09/09/2024 Patient appears to be recovering well postoperatively Patient is educated about the typical recovery course At this time, patient was referred to occupational therapy for range of motion and strengthening of the right hand in the setting of postoperative stiffness Patient was amenable to this plan Patient will follow-up as needed with any acute concerns Orders: Orders OT Evaluation and Treatment Today M25.641 - Stiffness of right hand, not elsewhere classified, M65.331 - Trigger finger, right middle finger, M65.341 - Trigger finger, right ring finger Coding Level of Care Code Global (59813) Diagnoses Stiffness of right hand joint M25.641 Trigger finger, right ring finger M65.341 Trigger finger, right middle finger M65.331
[2024-09-22 08:39] VITALS: BMI 46.8
--- OUTSIDE RECORDS SUMMARY | 2024-09-22 09:13 | XMS_ITS | Encounter Summary ---
Author Organization [facility] Address [address] [place] [address] Care Team Providers Care Grain Farmworker Name Role Phone Alirio Iqbal NP Primary Care Provider Reason for Visit * Reason Onset Date Comments Appointment 08/26/2024 1st Notification Encounter Details Date Type Department Care Team (Late st Contact Info) Description 08/26/2024 Telephone Lung Screening Program [address] [phone] [place] Coll[place] Appointment (1st Notification) Social History Tobacco Use Types Packs/Day Years Used Date Smoking Tobacco: Every Day Cigarettes Smokeless Tobacco: Never Alcohol Use Standard Drinks/Week Comments Yes 0 (1 standard drink = 0.6 oz pur e alcohol) Sex and Gender Information Value Date Recorded Sex Assigned at Not on file Legal Sex Male 8:49 PM EST Gender Identity Not on file Sexual Orientation Not on file documented as of this encounter Progress Notes * [place] Collazo [place] - 08/26/2024 1:32 PM EST Reached out to patient after we had to cancel the patients CT scan that was booked for August at 2 PM,due to his insurance denying the screening. Insurance stated that the patient had another CT scan preformed . I called patient to update his information ,find out where exactly he had the test done. * [place] Collazo [place] - 08/26/2024 11:57 AM EST Hans Ochoa [place] was contacted by the Lung Cancer Screening Program today to confirm the appointmentof their Lung Cancer Screening. The patient is currently scheduled to have their screening on , Friday September 13, 2024 2 PM at [facility]. Unable to notify busy signal. For all screenings scheduled during the week, the patient will check in at Patient Registration on the first floor of the main hospital. For screenings that take place on the weekend or after 5pm, check-in directly in Radiology. The patient was given the Lung Cancer Screening Program phone number, , to contact if they have any additional questions, concerns or need to reschedule. Patients are encouraged to call our office and reschedule if they are exhibiting any cold-like symptoms, have recently been treated for Pneumonia or Influenza (the flu) or have had another CT of their Chest since their last screening. documented in this encounter Plan of Treatment Not on file documented as of this encounter Visit Diagnoses Not on filedocumented in this encounter Care Teams Grain Farmworker Relationship Specialty Start Date End Date Alirio Iqbal NP [address] [facility] [place] PCP - General 06/19/23 documented as of this encounter
--- OUTSIDE RECORDS SUMMARY | 2024-09-22 09:13 | XMS_ITS | Clinical Summary ---
Author Organization [facility] [address] [facility] [place] Address [address] [place] [address] Phone Care Team Providers Care Scaffold Builder Name Role Phone BlancoAlirio garcia Sue CAMPO Primary Care Provider [phone] Encounters Date Type Department Care Team Description 08/26/2024 Telephone Lung Screening Program - [address] [place] [address] [place] Collazo [place] Appointment (1st Notification) from Last 3 Months Surgical History Surgery Date Site/Laterality Comments CARPAL TUNNEL RELEASE PROCEDURE: HISTORICAL CARPAL TUNNEL REL OTHER SURGICAL HISTORY PROCEDURE: COLONOSCOPY, SURGICAL OTHER SURGICAL HISTORY Right PROCEDURE: AL UNLISTED PROCEDURE FOREARM/WRIST; COMMENT: R-wrist surgery OTHER SURGICAL HISTORY Left PROCEDURE: AL ANESTHESIA ARTHROSCOPIC HIP JOINT PROCEDURE; COMMENT: L hip replacement Medical History Medical History Date Comments HLD (hyperlipidemia) DX:HLD (hyp erlipidemia) Ankle fracture DX:Ankle fractur e Morbid obesity (CMS/HCC) DX:Morb id obesity (HCC) Essential (primary) hypertension DX:Essential (primary) hypertension Primary osteoarthritis of right hip DX:Primary osteoarthritis of right hip Gout DX:Gout Rupture of right biceps tendon D X:Rupture of right biceps tendon Family History Medical History Relation Name Comments Testicular cancer Brother COPD Father Hypertension Father Other cancer Father COPD Mother Hypertension Mother Lung cancer Mother Other: Substance Abuse Mother Relation Name Status Comments Brother Father Mother Social History Tobacco Use Types Packs/Day Years Used Date Smoking Tobacco: Every Day Cigarettes Smokeless Tobacco: Never Alcohol Use Standard Drinks/Week Comments Yes 0 (1 standard drink = 0.6 oz pur e alcohol) Sex and Gender Information Value Date Recorded Sex Assigned at Not on file Legal Sex Male 8:49 PM EST Gender Identity Not on file Sexual Orientation Not on file Obstetrics History Last Filed Vital Signs Vital Sign Reading Time Taken Comments Blood Pressure - - Pulse - - Temperature - - Respiratory Rate - - Oxygen Saturation - - Inhaled Oxygen Concentration - - Weight 136 kg (300 lb) 08/01/2023 9:42 AM EST Height 170.2 cm (5' 7 ) 08/01/2023 9:42 AM EST Body Mass Index 46.99 08/01/2023 9:42 AM EST Plan of Treatment Health Maintenance Due Date Last Done Comments DTaP,Tdap,and Td Vaccines (1 - Tdap) 1982 Hepatitis A Vaccines (1 of 2 - Risk 2-dose series) 1982 Pneumococcal Vaccine: 50+ Ye ars (1 of 2 - PCV) 1982 Pneumococcal Vaccine: Pediat rics (0 to 5 Years) and At-Risk Patients (6 to 64 Years) (1 of 2 - PCV) 1982 Zoster Vaccines (1 of 2) 2013 RSV Immunization Patients 60 + Years Old (1 - Risk 60-74 years 1-dose series) 2023 Cholesterol Screening (Lipid Panel) 08/15/2023 Colorectal Cancer Screening: Colonoscopy 08/15/2023 Depression Screening 08/15/2023 HIV Screening 08/15/2023 Hepatitis C Screening 08/15/2023 Social Influencers of Health Screening 08/15/2023 COVID-19 Vaccine (2023-2 5 season) 2024 Influenza Vaccine (#1) 2024 Lung Cancer Screening (Low D ose CT) Discontinued 08/01/2023 HIB Vaccines Aged Out No longer eligi ble based on patient's age to complete this topic HPV Vaccines Aged Out No longer eligi ble based on patient's age to complete this topic Hepatitis B Vaccines Aged Out No long er eligible based on patient's age to complete this topic IPV Vaccines Aged Out No longer eligi ble based on patient's age to complete this topic MMR Vaccines Aged Out No longer eligi ble based on patient's age to complete this topic Meningococcal ACWY Vaccine Aged Out N o longer eligible based on patient's age to complete this topic Meningococcal B Vacine Aged Out No lo nger eligible based on patient's age to complete this topic RSV Immunization Patients Un chata 20 months Aged Out No longer eligible b ased on patient's age to complete this topic Varicella Vaccines Aged Out No longer eligible based on patient's age to complete this topic Procedures Procedure Name Priority Date/Time Associated Diagnosis Comments CT LUNG SCREENING LOW DOSE Routine 08/01/2023 11:23 AM EST Encounter for screening for malignant neoplasm of respiratory organs from Last 3 Months or Most Recently Relevant to Health Maintenance Results * CT LUNG SCREENING LOW DOSE (08/01/2023 11:23 AM EST) Anatomical Region Laterality Modality Computed Tomogra phy 08/01/2023 10:2 8 AM EST Narrative 08/01/2023 11:23 AM EST [facility] Diagnostic Imaging Department [address] [place] [address] Patient: ??KURT SIMON ?/Age/Sex: 1965 - 58 - M Unit#: ??[id number] ? Location/Status: ??SPDICATLS/REG CLI ? Mnemonic/Ordering Site: ??CTLUNGLD/SPCT Ordering Physician: ??ADOLFO CARRANZA MD CT Lung Screening Low Dose - 08/01/23 - Report Status:Signed Chest CT dated 08/01/2023. COMPARISON: None. HISTORY: Smoker. ??58 patchy or smoking history. TECHNIQUE: Noncontrast low-dose chest CT with coronal and sagittal reformats. FINDINGS: Lungs/pleura: Normal caliber airways. ??Mild centrilobular emphysema. ??Linear bands of atelectasis at the bases. ??3 x 2 mm nodule at the right apex (series 4, image 29). ??3 mm part solid nodule in the periphery of the right upper lobe (image 35). ??Calcified granuloma in the left upper lobe. ??No pleural effusion or pneumothorax. Mediastinum/yuliet: No mass or adenopathy. Vasculature: Normal caliber pulmonary arteries. ??Mild atherosclerotic calcification of the aorta. Cardiac: Severe coronary artery calcification. ??Normal heart size. Chest wall: No mass or adenopathy. Limited abdomen: There is a benign-appearing rim calcified nodule in the mesenteric fat just deep to the abdominal wall musculature in the right upper quadrant. Bones: Moderate degenerative changes of the left glenohumeral joint and mild degenerative changes of the right glenohumeral joint. ??Moderate degenerative changes of the spine. IMPRESSION: 2 small nodules in the right upper lobe, both measuring approximately 3 mm. ??No suspicious pulmonary nodule. ??Lung RADS 2. ??Continued annual screening re commended. Dictating Physician: ??ANDREA SANTIAGO MD Electronically Signed by: ??ANDREA SANTIAGO MD Dic Date/Time: ??08/01/23 1108 Sign date/Time: ??08/01/23 1123 Procedure Note Andrea Santiago MD - 03/08/2024 [facility] Diagnostic Imaging Department [address] [place], [place] [id number] Patient: SIMON,KURT Ochoa D.O.B./Age/Sex: 1965 - 58 - M Unit#: [id number] Location/Status: SPDICATLS/REG CLI Mnemonic/Ordering Site: [facility] Ordering Physician: ADOLFO CARRANZA MD CT Lung Screening Low Dose - 08/01/23 - Report Status:Signed Chest CT dated 08/01/2023. COMPARISON: None. HISTORY: Smoker. 58 patchy or smoking history. TECHNIQUE: Noncontrast low-dose chest CT with coronal and sagittalreformats. FINDINGS: Lungs/pleura: Normal caliber airways. Mild centrilobular emphysema.Linear bands of atelectasis at the bases. 3 x 2 mm nodule at the right apex(series 4, image 29). 3 mm part solid nodule in the periphery of the right upperlobe (image 35). Calcified granuloma in the left upper lobe. No pleuraleffusion or pneumothorax. Mediastinum/yuliet: No mass or adenopathy. Vasculature: Normal caliber pulmonary arteries. Mild atherosclerotic calcification of the aorta. Cardiac: Severe coronary artery calcification. Normal heart size. Chest wall: No mass or adenopathy. Limited abdomen: There is a benign-appearing rim calcified nodule in the mesenteric fat just deep to the abdominal wall musculature in the rightupper quadrant. Bones: Moderate degenerative changes of the left glenohumeral joint andmild degenerative changes of the right glenohumeral joint. Moderatedegenerative changes of the spine. IMPRESSION: 2 small nodules in the right upper lobe, both measuring approximately 3mm. No suspicious pulmonary nodule. Lung RADS 2. Continued annual screeningre commended. Dictating Physician: ANDREA SANTIAGO MD Electronically Signed by: ANDREA SANTIAGO MD Dic Date/Time: 08/01/23 1108 Sign date/Time: 08/01/23 1123 Adolfo Carranza MD IM CT PROCEDURES Final Result from Last 3 Months or Most Recently Relevant to Health Maintenance [place] [address] [facility] [place] [address] [place]ICA[place] Care Teams Scaffold Builder Relationship Specialty Start Date End Date Alirio Iqbal NP [address] [place], [place] PCP - General 06/19/23
== END 2024-09-22 08:54 | disposition home or self-care (01) ==
PROVIDERS: PCP Nurse Practitioner Family
DX: M25.641 Stiffness of right hand, not elsewhere classified (principal); M65.341 Trigger finger, right ring finger; M65.331 Trigger finger, right middle finger
CPT/HCPCS: 99024

== ENCOUNTER → 2024-09-22 08:36 | Outpatient (BNVA) | payer OTHER, SELFPAY | PROVIDERS: PCP Nurse Practitioner Family | DX: M25.641 Stiffness of right hand, not elsewhere classified (principal); Z48.02 Encounter for removal of sutures; Z98.890 Other specified postprocedural states | CPT/HCPCS: 99212 ==

== ENCOUNTER 2024-10-14 08:56 | Outpatient (AMB) | payer OTHER, SELFPAY ==
--- NOTE | 2024-10-14 09:02 | A.OFFPC_ITS ---
Vital Signs 10/14/24 09:20 Height 5 ft 7 in Weight 304 lb BMI 47.6 BP 136/82 Blood Pressure Location Lt brachial Position Sitting Pulse 80 Pulse Source Pulse Oximeter Pulse Oximetry (%) 95 Oxygen Delivery Method Room Air Intake Visit Reasons: DM followup Lead Front Desk Agent Required: No Accompanied by: Self / Same As Patient Allergies No Known Allergies Allergy (Verified 10/14/24 09:11) Tobacco use date assessed: 10/14/24 Dental Screening Dental Screen Date: 10/14/24 Did you have a dental visit in the last 12 months?: Yes Did you have a dental problem in the last 6 months where you did not have access to dental care?: No Was dental information given to patient?: Patient has dentist HPI DM followup HPI Details Chief Complaint Follow-up for diabetes with reports of intermittent neuropathy. History of Present Illness The patient is a 59-year-old male presenting for a follow-up on diabetes mellitus management. He experiences intermittent neuropathy, particularly affecting the posterior plantar heel of his right foot, but denies polyuria or polydipsia. His latest Hemoglobin A1c results are current and in the 6% range. The patient also undergoes routine eye examinations, which are up to date. Morbid obesity is noted as part of his overall health status. Social History Health Maintenance - Eye examination: Up to date - Hemoglobin A1c: Up to date, in the 6% range Review of Systems - Neurological: Reports intermittent lizet ropathy in the posterior plantar heel region of the right foot - Constitutional: Denies polyuria and po lydipsia Physical Exam General: Cooperative, healthy appearing, comfortable, no acute distress and well developed, morbidly obese Orientation: Patient oriented x3 Limitations: No limitations Head: Normal to inspection Ears: Hearing grossly normal bilaterally Nose: Normal external nose present Face and sinus: Normal facial exam Eyes: Appearance normal, both eyes and all related structures Neck: Normal visual inspection and Yes full ROM Respiratory: Normal respiratory effort and able to speak in complete sentences. Clear to auscultation bilaterally Cardiovascular: Regular rate and rhythm. Normal S1 and S2 GI: Normal to inspection. Soft to palpation and nontender Skin: No rashes or lesions noted Neuro: Patient oriented x3, right foot slight lack of sensation to the plantar aspect, more posterior plantar foot heel region, otherwise sensation noted to the distal aspect, more anterior plantar aspect of his right foot and also to his entire left foot Extremities: Normal to inspection, feet intact bilaterally, mild onychomycosis noted bilaterally Results - Labs: Hemoglobin A1c, up to date, repo rted in the 6% range Plan The treatment plan involves starting Mounjaro to manage Type 2 Diabetes Mellitus and support weight management, given his morbid obesity. The patient should continue routine monitoring of blood glucose and report changes in neuropathy. Further, ongoing adherence to comprehensive diabetes management strategies, including regular A1c checks and lifestyle adjustments, is recommended. Follow- up appointments will assess the response to treatment. Patient was informed and verbally consented to the use of an ambient scribe for clinic note documentation during this visit. Discussion Notes I discussed with the patient the initiation of Mounjaro for management of Type 2 Diabetes Mellitus and obesity. We reviewed the goals of better glycemic control and potential weight loss, as well as the importance of monitoring blood glucose levels. The risks include possible side effects of the medication, balanced against the benefit of improved diabetes control. The patient was informed about the need for regular follow-up to monitor efficacy and any adverse reactions to the treatment. We agreed on the importance of lifestyle modifications for optimal health outcomes. Patient Instructions - Start Mounjaro as prescribed for diabe twin management. - Monitor blood glucose levels regularly and report any significant changes. - Adhere to dietary and lifestyle modifi cations recommended for diabetes management. - Schedule follow-up visits to assess tr eatment efficacy and adjustment needs. - Seek immediate care if experiencing ad verse reactions to medication. [facility] Medical History HLD (hyperlipidemia) Ankle fracture, left Morbid obesity Hypertension Primary osteoarthritis of right hip Gout Rupture of right biceps tendon Surgical History History of ankle surgery History of right hip replacement History of carpal tunnel repair H/O colonoscopy H/O right wrist surgery History of left hip replacement Family History Father COPD (chronic obstructive pulmonary disease) Cancer Hypertension Substance abuse Mother COPD (chronic obstructive pulmonary disease) Hypertension Substance abuse Social History Housing: House Are you a primary tire care manager to a significant other at home: No Do you presently have visiting nurse or other home services: No Patient Tobacco Use Status: Current everyday Tobacco user Tobacco use type: Cigarette Cigarettes Per Day: 2 Years Smoked: 15 e-Cigarette/Vaping Use: Currently Using Second Hand Smoke Exposure: No Substance Use Type: Marijuana service: No Current occupational status: employed 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 1. Little interest or pleasure in doing things: several days 2. Feeling down, depressed, or hopeless: not at all 3. Trouble falling or staying asleep, or sleeping too much: more than half the days 4. Feeling tired or having little energy: several days 5. Poor appetite or overeating: several days 6. Feeling bad about yourself - or that you are a failure or have let yourself or your family down: not at all 7. Trouble concentrating on things, such as reading the newspaper or watching television: not at all 8. Moving or speaking so slowly that other people could have noticed. Or the opposite - being so fidgety or restless that you have been moving around a lot more than usual: not at all 9. Thoughts that you would be better off or of hurting yourself in some way: not at all Total score: 5 Depression Screening Interpretation: Negative Depression Screening Done: Yes [id number] - PHQ-9 Billing: Yes Source: Developed by Drs. Kevin Grant, Gemini Collazo, Marcello Pinzon and colleagues, with an educational cara from [employer]. Thrive Questionnaire Date Thrive assessed: 10/14/24 I am a: Patient What is your living situation today?: I have a steady place to live Within the past 12 months, did the food you bought not last and you didn't have the money to get more?: Sometimes True Within the past 12 months, did you worry whether your food would run out before you got money to buy more?: Sometimes True Do you have trouble paying for medicines?: No Do you have trouble getting transportation to medical appointments?: No Do you have trouble paying your heating and electricity bill?: No Do you have trouble taking care of your child, family member or friend?: No Do you have trouble with day-to-day activities such as bathing, preparing meals, shopping, managing finances, etc.?: Yes Are you currently unemployed and looking for a job?: No Are you interested in more education?: No Please select the resources that you would like help with: None Currently or been in a relationship where the following occur: No concerns reported THRIVE Score: 2 AUDIT C Alcohol Use Questionnaire (AUDIT-C) 1. How often do you have a drink containing alcohol?: 2-4 times a month 2. How many drinks containing alcohol do you have on a typical day when you are drinking?: 3 or 4 3. How often do you have six or more drinks on one occasion?: Less than monthly Total Score: 4 Score Reviewed/Action Taken: Yes AISHA-7 AMB Questionnaire AISHA-7 Date AISHA - 7 assessed: 10/14/24 Feeling nervous, anxious, or on edge: 1 = Several days Not being able to stop or control worryin = Several days Worrying too much about different things: 1 = Several days Trouble relaxin = Not at all Being so restless that it is hard to sit still: 1 = Several days Becoming easily annoyed or irritable: 1 = Several days Feeling afraid as if something awful might happen: 0 = Not at all Total AISHA-7 score (0-4 normal; 5-9 mild; 10-14 moderate; 15-21 severe): 5 Source: Developed by Drs. Kevin Grant, Gemini Collazo, Marcello Pinzon and colleagues, with an educational cara from [employer]. AISHA-7 Assessment Billing AISHA-7 Assessment Tool: AISHA-7 Assessment 95199 Physical exam (Primary Care) Vital Signs: Last Vital Signs Pulse 80 10/14/24 09:20 BP 136/82 10/14/24 09:20 Pulse Ox 95 10/14/24 09:20 Oxygen Delivery Method Room Air 10/14/24 09:20 BMI result Body Mass Index 47.6 Tobacco/Smoking Status: Tobacco use Status Tobacco use date assessed 10/14/24 10/14/24 09:14 Patient Tobacco Use Status Current everyday Tobacco 10/14/24 09:10 Tobacco use type Cigarette 10/14/24 09:10 e-Cigarette/Vaping Use Currently Using 10/14/24 09:10 PHQ-9: PHQ-9 Score PHQ-9: Total score 5 10/14/24 09:55 Depression Screening Interpretation: Negative Thrive Assessment: Date of Thrive Assessment Date Thrive assessed 10/14/24 10/14/24 09:14 Currently or been in a relationship where the following occur: No concerns reported Immunizations pneumoc 20-rhea conj-dip cr(PF) 0.5 mL IM syringe Performing Provider: FABI Shaw [place]forming Location[place] [facility] [place] [facility] [place] [facility] Administered by: JOSE Rodriguez on 10/14/24 10:03 Dose Route Admin Location Dispensed Lot Number Expiration Date [facility] Slurry Control Operator Helper 0.5 mL IM Left Deltoid 0.5 mL [id number] 11/17/25 2840-6414-55 WYETH/PFIZER VIS Given Date VIS Provided VIS Publication Date 10/14/24 Single Vaccine 21 Eligibility Eligibility Date Funding Source Not [facility] Eligible 10/14/24 Private Coding Level of Care Code Est Pt Level 3 (55420) Diagnoses Diabetes E11.9 Morbid obesity E66.01 Additional Codes AISHA-7 Assessment Billing - AISHA-7 Assessment Tool: AISHA-7 Assessment 64822 ([id number]) PHQ-9 - 67821 - PHQ-9 Billing: Yes ([id number]) Assessment & Plan Assessment & Plan (1) Diabetes: Code(s): E11.9 - Type 2 diabetes mellitus without complications Category: Medical (2) Morbid obesity: Code(s): E66.01 - Morbid (severe) obesity due to excess calories Category: Medical Plan . Orders: Orders Pneumococcal 20 Immunization Today Z23 - Encounter for immunization Medications: New tirzepatide (Mounjaro) for 4 weeks 2.5 mg (0.5 mL) subcut QWEEK 2 mL 0RF pneumoc 20-rhea conj-dip cr(PF) 0.5 mL IM ONCE 0.5 mL 0RF Z23 - Encounter for immunization Discontinued semaglutide (weight loss) (Wegovy) administer weeks 1 through 4 of therapy Discontinued Reason: Doctor's Order 0.25 mg (0.5 mL) subcut QWEEK 2 mL 0RF
[2024-10-14 09:20] VITALS: BP 136/82; PULSE 80; O2SAT 95; BMI 47.6
== END 2024-10-14 10:41 | disposition home or self-care (01) ==
LOC: HO.HMCC 08:57
PROVIDERS: PCP Nurse Practitioner Family; Visit Provider Nurse Practitioner Family
DX: E11.9 Type 2 diabetes mellitus without complications (principal); E66.01 Morbid (severe) obesity due to excess calories; Z68.42 Body mass index [BMI] 45.0-49.9, adult; Z23 Encounter for immunization

== ENCOUNTER → 2024-10-14 08:56 | Outpatient (BNVA) | payer OTHER, SELFPAY | PROVIDERS: PCP Nurse Practitioner Family; Visit Provider Nurse Practitioner Family | DX: Z23 Encounter for immunization (principal); E11.9 Type 2 diabetes mellitus without complications; E66.01 Morbid (severe) obesity due to excess calories; Z68.42 Body mass index [BMI] 45.0-49.9, adult; Z71.3 Dietary counseling and surveillance | CPT/HCPCS: 90471; 90677; 96127; 99212 ==

== ENCOUNTER 2024-10-28 08:31 | Outpatient (RCR) | payer OTHER, SELFPAY ==
--- NOTE | 2024-10-04 10:05 | MHC.OT.EP ---
[address] [phone] Occupational Therapy Plan of Care Patient Name: Hans Simon Date of Evaluation: 10/04/24 Diagnosis: R MF/RF trigger release Pain Location: Pain Score: 2 Pain Scale Used: Numeric (0 - 10) Aggravating Factors: Alleviating Factors: Resting hand Assessment: Pt is a 59 yr. old R hand dominant male who had trigger finger release of his R MF/RF on 09/09/24. Pt reports at his follow up appointment w/ PA (Paula), he was concerned in regards to tightness/ stiffness, and mild pain w/ use of his R hand. He presents today w/ inflammation, inability to fully extend his MF or make a composite fist, as well as hand weakness. Pt would benefit form skilled OT therapy to increase ROM, strength, and functional use of his R hand. Frequency and Duration: The patient will be seen 2xs aweek for 3 weeks Short Term Goals: SEE BELOW Cotton Stripper Goals: Pt will be complaint w/ scar massage Pt will be complaint w/ HEP Pt wlll be able to make a composite fist w/out complaints of pain in his R hand Pt will have a R extrusion former strength of 40 lbs Treatment Plan: Therapeutic Exercise Therapeutic Activity Home Exercise Program Splinting Neuro Re-ed Patient Education Desensitization/Sensory Re-ed Edema Control ADL Training Ultrasound NMES Iontophoresis Paraffin Fluidotherapy MHP Cold Packs Joint Mobilization Soft Tissue Mobilization Kinesiotaping Other (see comments) Electronically Signed By: Joyce Haas OTR/L Please Sign and return to therapist. Thank you once again for your referral.
== END 2024-11-04 10:35 | disposition home or self-care (01) ==
LOC: HO.OT 08:31
PROVIDERS: PCP Nurse Practitioner Family
DX: M65.331 Trigger finger, right middle finger (principal); M65.341 Trigger finger, right ring finger; M25.641 Stiffness of right hand, not elsewhere classified
CPT/HCPCS: 97035; 97110; 97140; 97165; 97535; 97760

== ENCOUNTER 2024-11-15 08:46 | Outpatient (AMB) | payer OTHER, SELFPAY ==
--- NOTE | 2024-11-15 08:52 | MHC.PC.OV ---
Vital Signs 11/15/24 08:55 Height 5 ft 7 in Weight 304 lb BMI 47.6 BP 130/78 Blood Pressure Location Lt brachial Position Sitting Pulse 86 Pulse Source Pulse Oximeter Pulse Oximetry (%) 98 Intake Visit Reasons: DM followup Disability Representative Required: No Accompanied by: Self / Same As Patient Allergies No Known Allergies Allergy (Verified 10/14/24 09:11) Medication List - Last Reconciled 11/15/24 by Alirio Iqbal [facility]- amlodipine 5 mg PO DAILY blood sugar diagnostic (FreeStyle Lite Strips) Test blood sugar twice a day blood-glucose meter (FreeStyle Lite Meter kit) Test blood sugar twice a day cetirizine (Zyrtec) 10 mg PO DAILY duloxetine 30 mg PO DAILY gabapentin 100 mg PO TID garlic 400 mg PO DAILY ibuprofen (IBU) 800 mg PO ONCE PRN ipratropium bromide 2 sprays intranasal DAILY krill oil mg PO lancets (FreeStyle Lancets) Test blood sugar twice a day lisinopril 40 mg PO DAILY 90 days metformin ER 500 mg PO BID 30 days nicotine 1 patch transdermal DAILY rosuvastatin 40 mg PO DAILY 90 days semaglutide (Ozempic) 0.25 mg (0.368 mL) subcut QWEEK walker Folding Front wheeled walker Tobacco use date assessed: 10/14/24 Dental Screening Dental Screen Date: 10/14/24 HPI DM followup HPI Details Chief Complaint Concerns regarding diabetes management and medication coverage. History of Present Illness The patient is a 59-year-old male presenting for a follow-up regarding diabetes management. Previously initiated on mounjaro, a GLP-1 receptor agonist, its utility is currently hindered by insurance coverage issues. Ozemoic sent, but not started. Despite this, the patient maintains a well-controlled hemoglobin A1c of 6.5%. The patient denies neuropathy and claudication but reports reduced pedal pulses bilaterally. Ultrasound testing is scheduled to assess vascular conditions. Smoking persists as a chronic risk factor, with the patient actively participating in a lung screening program. No chest pain or shortness of breath has been reported, aligning with current lung health management. Social History - Tobacco use: The patient smokes and participates in the [facility] lung screening program. Health Maintenance - Lung screening participation via the [facility] program is ongoing for tobacco use disorder assessment. Review of Systems - Cardiovascular: Denies chest pain and claudication. Reports diminished pedal pulses bilaterally. - Respiratory: Denies increased shortness of breath. - Neurological: Denies neuropathy. Physical Exam General: Cooperative, healthy appearing, comfortable, no acute distress and well developed, morbid obesity Orientation: Patient oriented x3 Limitations: No limitations Head: Normal to inspection Ears: Hearing grossly normal bilaterally Nose: Normal external nose present Face and sinus: Normal facial exam Eyes: Appearance normal, both eyes and all related structures Neck: Normal visual inspection and Yes full ROM Respiratory: Normal respiratory effort and able to speak in complete sentences. Clear to auscultation bilaterally Cardiovascular: Regular rate and rhythm. Normal S1 and S2 GI: Normal to inspection. Soft to palpation and nontender Skin: No rashes or lesions noted Neuro: Patient oriented x3 Extremities: Very weak pedal pulses bilaterally, dorsalis pedis, pedal pulses. Normal to inspection, + sensation, mild onychomycosis noted bilat Results - Tests: Ultrasound testing of vascular health is planned due to weak pedal pulses. Plan Considering the refusal of coverage for Mounjaro, maintaining focus on GLP-1 agonist efficacy is crucial. Ozempic RE-sent observation of weak pedal pulses warrants ultrasound testing to assess vascular concerns, integrated with continued education on smoking cessation efforts. The patient actively engages in the [facility] lung screening program, aligning with current health maintenance protocols. We plan to evaluate outcomes and follow up once ultrasound results are obtained.: Discussion Notes I discussed with the patient the ongoing challenges of securing medication coverage for Ozempic and alternative therapies such as Mounjaro, explaining the distinct benefits of GLP-1 agonists in managing both diabetes and obesity. The ultrasound examination was rationalized as a proactive approach to assessing vascular integrity following the manifestation of weak pedal pulses. Risks, benefits, and alternatives to current treatment options were detailed to the patient, highlighting the value of continued smoking cessation engagement. Future evaluations and follow-ups were outlined in conjunction with controlled A1c levels reinforcing ongoing management strategies. Patient Instructions - Attempt to refill Ozempic prescription and follow up on insurance coverage. - Prepare for upcoming ultrasound testing to assess vascular health. - Continue participation in the [facility] lung screening program. - Maintain efforts to quit smoking and monitor for any changes in health. [facility] Medical History HLD (hyperlipidemia) Ankle fracture, left Morbid obesity Hypertension Primary osteoarthritis of right hip Gout Rupture of right biceps tendon Surgical History History of ankle surgery History of right hip replacement History of carpal tunnel repair H/O colonoscopy H/O right wrist surgery History of left hip replacement Family History Father COPD (chronic obstructive pulmonary disease) Cancer Hypertension Substance abuse Mother COPD (chronic obstructive pulmonary disease) Hypertension Substance abuse Social History Housing: House Are you a primary wound care rn to a significant other at home: No Do you presently have visiting nurse or other home services: No Patient Tobacco Use Status: Current everyday Tobacco user Tobacco use type: Cigarette Cigarettes Per Day: 2 Years Smoked: 15 e-Cigarette/Vaping Use: Currently Using Second Hand Smoke Exposure: No Substance Use Type: Marijuana service: No Current occupational status: employed 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, 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 Current occupational exposures/hazards: No Cognitive needs: No Hearing needs: No Vision needs: No Questionnaire Thrive Questionnaire Date Thrive assessed: 11/15/24 I am a: Patient What is your living situation today?: I have a steady place to live Within the past 12 months, did the food you bought not last and you didn't have the money to get more?: Sometimes True Within the past 12 months, did you worry whether your food would run out before you got money to buy more?: Sometimes True Do you have trouble paying for medicines?: No Do you have trouble getting transportation to medical appointments?: No Do you have trouble paying your heating and electricity bill?: No Do you have trouble taking care of your child, family member or friend?: No Do you have trouble with day-to-day activities such as bathing, preparing meals, shopping, managing finances, etc.?: Yes Are you currently unemployed and looking for a job?: No Are you interested in more education?: No Please select the resources that you would like help with: None Currently or been in a relationship where the following occur: No concerns reported THRIVE Score: 2 AISHA-7 AMB Questionnaire AISHA-7 Date AISHA - 7 assessed: 10/14/24 Source: Developed by Drs. Keivn Grant, Gemini Collazo, Marcello Pinzon and colleagues, with an educational cara from [employer]. Physical exam (Primary Care) Vital Signs: Last Vital Signs Pulse 86 11/15/24 08:55 BP 130/78 11/15/24 08:55 Pulse Ox 98 11/15/24 08:55 BMI result Body Mass Index 47.6 Tobacco/Smoking Status: Tobacco use Status Tobacco use date assessed 10/14/24 11/15/24 08:54 Patient Tobacco Use Status Current everyday Tobacco 11/15/24 08:54 Tobacco use type Cigarette 11/15/24 08:54 e-Cigarette/Vaping Use Currently Using 11/15/24 08:54 Thrive Assessment: Date of Thrive Assessment Date Thrive assessed 11/15/24 11/15/24 08:58 Currently or been in a relationship where the following occur: No concerns reported Results AMB Hemoglobin A1c AMB Hemoglobin A1c 6.5 % Last Edit by Joss Dwyer CMA on 11/15/24 09:10 Results Reviewed Results Reviewed: Laboratory Last Values Hgb A1c (Clinic) 6.5 % (4.0-6.0) H 11/15/24 09:06 Coding Level of Care Code Est Pt Level 3 (46715) Diagnoses Diabetes E11.9 Decreased pedal pulses R09.89 Assessment & Plan Assessment & Plan (1) Diabetes: Code(s): E11.9 - Type 2 diabetes mellitus without complications Category: Medical (2) Decreased pedal pulses: Code(s): R09.89 - Other specified symptoms and signs involving the circulatory and respiratory systems Category: Medical Plan . Orders: Orders Complete Blood Count Auto Diff Today E11.9 - Type 2 diabetes mellitus without complications TSH reflex Free T4 Today E11.9 - Type 2 diabetes mellitus without complications US arterial duplex LE BI Today R09.89 - Other specified symptoms and signs involving the circulatory and respiratory systems AMB Hemoglobin A1c Today Z13.9 - Encounter for screening, unspecified Comprehensive [place]. Panel Fast Today E11.9 - Type 2 diabetes mellitus without complications UA CC w/rflx Micro + Cult Today E11.9 - Type 2 diabetes mellitus without complications Lipid Panel Today E11.9 - Type 2 diabetes mellitus without complications Medications: Refilled semaglutide (Ozempic) for 4 weeks 0.25 mg (0.368 mL) subcut QWEEK 3 mL 0RF
[2024-11-15 08:55] VITALS: BP 130/78; PULSE 86; O2SAT 98; BMI 47.6
--- OUTSIDE RECORDS SUMMARY | 2024-11-15 09:18 | XMS_ITS | Encounter Summary ---
Author Organization [facility] Address [address] [place] [address] Care Team Providers Care Furnace Mechanic Helper Name Role Phone BlancoezioAlirio traore NP Primary Care Provider [phone] Reason for Visit * Reason Onset Date Comments Appointment 08/26/2024 1st Notification Encounter Details Date Type Department Care Team ([facility] st Contact Info) Description 08/26/2024 Telephone Lung Screening Program - [address] [id number] [place] Collazo MA Appointment (1st Notification) Social [...] Progress Notes * [place] Collazo MA - 11/10/2024 8:14 AM EDT After speaking with April, and searching patients everywhere portal, we have not found another CTScan we have checked and we will schedule the patient for Annual Chest CT Scan for December of 2024 andsee if the insurance will authorize this scan. * Florida Collazo MA - 08/26/2024 1:32 [...] MA - 08/26/2024 11:57 AM EST Hans Simon was contacted by the Lung Cancer Screening Program today to confirm the appointmentof their Lung Cancer Screening. The patient is currently scheduled to have their screening on , Friday September 13, 2024 2 PM at [facility]. Unable to notify busy signal. For [...] on filedocumented in this encounter Care Teams Furnace Mechanic Helper Relationship Specialty Start Date End Date Alirio Iqbal NP [address] [facility] YULISSA Turpin PCP - General 06/19/23 documented as of this encounter
--- OUTSIDE RECORDS SUMMARY | 2024-11-15 09:18 | XMS_ITS | Clinical Summary ---
Author Organization [facility] [address] [facility] [address] Address [address] [place] [address] Phone Care Team Providers Care Fire Support Man Name Role Phone BlancoAlirio garcia Sue CAMPO Primary Care Provider [phone] Encounters Date Type Department Care Team Description 08/26/2024 Telephone Lung Screening Program - [address] [place] [address] [place] Appointment (1st Notification) from Last 3 Months Surgical History Surgery Date Site/Laterality Comments CARPAL TUNNEL RELEASE PROCEDURE: HISTORICAL CARPAL TUNNEL REL OTHER SURGICAL HISTORY PROCEDURE: COLONOSCOPY, SURGICAL OTHER SURGICAL HISTORY Right PROCEDURE: [place] UNLISTED PROCEDURE FOREARM/WRIST; COMMENT: R-wrist surgery OTHER SURGICAL HISTORY Left PROCEDURE: [place] ANESTHESIA ARTHROSCOPIC HIP JOINT PROCEDURE; COMMENT: L hip replacement Medical History Medical History Date Comments HLD (hyperlipidemia) DX:HLD (hyp erlipidemia) Ankle fracture DX:Ankle fractur e Morbid obesity (CMS/HCC V24, CMS/HCC V28) DX:Morbid obesity (HCC) Essential (primary) hypertension DX:Essential (primary) [...] DTaP,Tdap,and Td Vaccines (1 - Tdap) 1982 Pneumococcal Vaccine: 50+ Ye ars (1 of 2 - PCV) 1982 Pneumococcal Vaccine: Pediat rics (0 to 5 Years) and At-Risk Patients (6 to 64 Years) (1 of 2 - PCV) 1982 Zoster Vaccines (1 of 2) 2013 RSV Immunization Adult Patie nts (1 - Risk 60-74 years 1-dose series) 2023 Cholesterol Screening (Lipid Panel) 08/15/2023 Colorectal Cancer Screening: Colonoscopy 08/15/2023 Depression Screening 08/15/2023 HIV Screening 08/15/2023 Hepatitis C Screening 08/15/2023 Social Influencers of Health Screening 08/15/2023 COVID-19 Vaccine (2023-2 5 season) 2024 Influenza Vaccine (Season Ended) 2025 Lung Cancer Screening (Low D ose CT) Discontinued 08/01/2023 HIB Vaccines Aged Out No longer eligi ble based on patient's age to complete this topic HPV Vaccines Aged Out No longer eligi ble based on patient's age to complete this topic Hepatitis A Vaccines Aged Out No long er eligible [...] age to complete this topic Meningococcal B Vaccine Aged Out No l onger eligible based on patient's age to complete [...] AM EST Narrative 08/01/2023 11:[address] [facility] Diagnostic Imaging Department [address] [place] [address] Patient: ??KURT SIMON ?/Age/Sex: 1965 - 58 - M Unit#: ??[id number] ? Location/Status: ??SPDICATLS/REG CLI ? [facility] Ordering Physician: ??ADOLFO CARRANZA MD CT Lung [...] Procedure Note Andrea Santiago MD - 03/08/2024 [facility] Diagnostic Imaging Department [address] [place] [id number] Patient: KURT SIMON Gabriela /Age/Sex: 1965 - 58 - M Unit#: [id number] Location/Status: SPDICATLS/REG CLI Mnemonic/Ordering Site: [facility] Ordering Physician: ADOLFO CARRANZA MD CT Lung [...] Sign date/Time: 08/01/23 1123 Adolfo Carranza MD IMG CT PROCEDURES Final Result from Last 3 Months or Most Recently Relevant to Health Maintenance Insurance [facility] [place] [id number] Care Teams Fire Support Man Relationship Specialty Start Date End Date Alirio Iqbal NP [address] [place], [place] PCP - General 06/19/23
== END 2024-11-15 09:25 | disposition home or self-care (01) ==
LOC: HO.HMCC 08:47
PROVIDERS: PCP Nurse Practitioner Family; Visit Provider Nurse Practitioner Family
DX: E11.9 Type 2 diabetes mellitus without complications (principal); R09.89 Other specified symptoms and signs involving the circulatory and respiratory systems; Z13.9 Encounter for screening, unspecified

== ENCOUNTER → 2024-11-15 08:46 | Outpatient (BNVA) | payer OTHER, SELFPAY | PROVIDERS: PCP Nurse Practitioner Family; Visit Provider Nurse Practitioner Family | DX: E11.9 Type 2 diabetes mellitus without complications (principal); R09.89 Other specified symptoms and signs involving the circulatory and respiratory systems | CPT/HCPCS: 83036; 99212 ==

== ENCOUNTER 2024-12-16 13:28 | Outpatient (REF) | payer OTHER, SELFPAY ==
--- NOTE | ~2024-12-16 | US_ITS ---
CLINICAL HISTORY: R09.89 - Other specified symptoms and signs involving the circulatory an... --- Add itional Notes or Special Instructions: DECREASED PEDAL PULSES Arterial duplex ultrasound bilateral lower extremity Comparison: None Findings: Continuous, pulsatile flow with normal waveforms from common femoral arteries through the posterior tibial and dorsalis pedis arteries. No focal stenosis, aneurysm, or occlusion identified. Velocities are within normal range. IMPRESSION: No hemodynamically significant stenoses on bilateral lower extremity arterial duplex. This document has been electronically signed by: Jaswinder Oswald MD on 12/17/2024 09:22:24
--- OUTSIDE RECORDS SUMMARY | 2024-12-16 13:36 | XMS_ITS | Clinical Summary ---
Author Organization [facility] 299 [facility] Address [address] [place] [address] Phone Care Team Providers Care Safe And Vault Service Mechanic Name Role Phone BlancoAlirio garcia Sue CAMPO Primary Care Provider Surgical History Surgery Date Site/Laterality Comments CARPAL TUNNEL RELEASE PROCEDURE: HISTORICAL CARPAL TUNNEL REL OTHER SURGICAL HISTORY PROCEDURE: COLONOSCOPY, SURGICAL OTHER SURGICAL HISTORY Right PROCEDURE: [place] UNLISTED PROCEDURE FOREARM/WRIST; COMMENT: R-wrist surgery OTHER SURGICAL HISTORY Left PROCEDURE: [place] ANESTHESIA ARTHROSCOPIC HIP JOINT PROCEDURE; COMMENT: L [...] 08/01/2023 9:42 AM EST Plan of Treatment Upcoming Encounters Date Type Department Care Team (Late st Contact Info) Description 12/21/2024 8:45 AM EDT Appointment [facility] CT Scan [address] [place] [address] Health Maintenance Due Date Last Done Comments [...] Influencers of Health Screening 08/15/2023 COVID-19 Vaccine ( - 2023-2 5 season) 2024 Influenza Vaccine (Season Ended) [...] AM EST Narrative 08/01/2023 11:23 AM EST [facility] Diagnostic Imaging Department [address] [place] [address] Patient: ??KURT SIMON ?/Age/Sex: 1965 - 58 - M Unit#: ??[id number] ? Location/Status: ??SPDICATLS/REG CLI ? Mnemonic/Ordering Site: [...] Procedure Note Andrea Santiago MD - 03/08/2024 [facility] Diagnostic Imaging Department [address] [place] [address] [id number] Patient: SIMONKURT./Age/Sex: 1965 - 58 - M Unit#: [id number] Location/Status: SPDICATLS/REG CLI Mnemonic/Ordering Site: [facility] Ordering Physician: ADOLFO CARRANZA MD CT Lung [...] to Health Maintenance [place] [address] [facility] [place] [id number] Care Teams Safe And Vault Service Mechanic Relationship Specialty Start Date End Date [facility]irio Iqbal NP [facility] [place] PCP - General 06/19/23
== END 2024-12-16 13:29 | disposition home or self-care (01) ==
LOC: HO.US 13:28
PROVIDERS: PCP Nurse Practitioner Family; Visit Provider Nurse Practitioner Family
DX: R09.89 Other specified symptoms and signs involving the circulatory and respiratory systems (principal)
CPT/HCPCS: 93925

== ENCOUNTER → 2024-12-16 13:31 | Outpatient (BNV) | payer OTHER, SELFPAY | PROVIDERS: PCP Nurse Practitioner Family; Visit Provider Specialist | DX: R09.89 Other specified symptoms and signs involving the circulatory and respiratory systems (principal) | CPT/HCPCS: 93925 ==

== ENCOUNTER 2025-02-10 09:22 | Outpatient (AMB) | payer OTHER, SELFPAY ==
--- NOTE | 2025-02-10 09:32 | A.OFFVIS_ITS ---
Vital Signs 02/10/25 09:33 Height 5 ft 7 in Weight 304 lb BMI 47.6 Intake Visit Reasons: INj-left knee OA - last inj 11/08/21 Intake Note: Hans is a 60 year old male who presents today for a repeat left knee injection. The left knee was last injected 11/08/21. Patient reports that he is having increased pain in the left shoulder, he has had an injection about 1 year ago. The shoulder is more painful at this time than the knee but he is unsure if he can have an injections both the left knee and right shoulder. Allergies No Known Allergies Allergy (Verified 02/10/25 09:58) HPI HPI INj-left knee OA - last inj 11/08/21: Details: Hans is a 60 year old male who presents today for a repeat left knee injection. The left knee was last injected 11/08/21. Patient reports that he is having increased pain in the left shoulder, he has had an injection about 1 year ago. The shoulder is more painful at this time than the knee but he is unsure if he can have an injections both the left knee and right shoulder. [facility] Medical History HLD (hyperlipidemia) Ankle fracture, left Morbid obesity Hypertension Primary osteoarthritis of right hip Gout Rupture of right biceps tendon Surgical History History of ankle surgery History of right hip replacement History of carpal tunnel repair H/O colonoscopy H/O right wrist surgery History of left hip replacement Family History Father COPD (chronic obstructive pulmonary disease) Cancer Hypertension Substance abuse Mother COPD (chronic obstructive pulmonary disease) Hypertension Substance abuse Social History Housing: House Are you a primary career developer to a significant other at home: No Do you presently have visiting nurse or other home services: No Patient Tobacco Use Status: Current everyday Tobacco user Tobacco use type: Cigarette Cigarettes Per Day: 2 Years Smoked: 15 e-Cigarette/Vaping Use: Currently Using Second Hand Smoke Exposure: No Substance Use Type: Marijuana service: No Current occupational status: employed 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 Passive and active abduction to 80 degrees and floor forward flexion to 120. Restricted in CON motions. Left knee with 5-130 no effusion stable to v/v stress Office Procedures Joint Inj/Aspir; Non-Pain Clin Joint Injection/Drain Details: Injected 1 mL of Decadron and 3 mL 1% lidocaine and 3 mL of 0.25% Marcaine. Site was prepped using aseptic technique. Patient tolerated the procedure well. Shoulders, Hips, Knees, Shoulder Injection Large joint 70534: Left Shoulder Knee Large Joint Injection 37670: Left Knee Coding Procedure code (CPT) selection complete Results Reviewed Results Reviewed: I personally reviewed relevant radiographs. Left shoulder mod-severe GH OA Left knee PF OA Assessment & Plan Assessment & Plan (1) Patellofemoral arthritis of left knee: Code(s): M17.12 - Unilateral primary osteoarthritis, left knee Category: Medical Plan: Hans has left knee PF OA. The options are limited and he wants to repeat injections which is reasonable. I injected his left knee. (2) Osteoarthritis of left shoulder: Code(s): M19.012 - Primary osteoarthritis, left shoulder Category: Medical Plan: aHns has shoulder OA and it is more of a problem than his knee. He does continue to lift objects at work although nothing heavy and not overhead. Injections in his shoulder have benefitted him in the past. He has not seen blood sugar elevations in past injections and so we also injected his left shoulder GH joint today. (3) Diabetes: Code(s): E11.9 - Type 2 diabetes mellitus without complications Category: Medical Plan: Hans has not experienced significant blood sugar elevations after injections. I did warn him of the hyperglycemic effects of steroids. He expressed understanding., Coding Level of Care Code Est Pt Level 4 (05127) Diagnoses Patellofemoral arthritis of left knee M17.12 Osteoarthritis of left shoulder M19.012 Diabetes E11.9 CPT Codes Shoulders, Hips, Knees, - Shoulder Injection Large joint : Left Shoulder ([id number]) Shoulders, Hips, Knees, - Knee Large Joint Injection 23479: Left Knee ([id number])
[2025-02-10 09:33] VITALS: BMI 47.6
--- OUTSIDE RECORDS SUMMARY | 2025-02-10 09:56 | XMS_ITS | Clinical Summary ---
Author Organization [facility] 299 [facility] Address [address] [place] [address] Phone Care Team Providers Care Optometry Doctor Name Role Phone Alirio Iqbal NP Primary Care Provider Encounters Date Type Department Care Team Description 12/21/2024 8:22 AM EDT - 12/21/2024 11:59 PM EDT Hospital Encounter [facility] CT Scan [address] [place] [id number] Encounter for screening for malignant neoplasm of respiratory organs; Nicotine dependence, cigarettes, uncomplicated Discharge Disposition: Home or Self Care from Last 3 Months Surgical History Surgery Date Site/Laterality Comments CARPAL TUNNEL RELEASE PROCEDURE: HISTORICAL CARPAL TUNNEL REL OTHER SURGICAL HISTORY PROCEDURE: COLONOSCOPY, SURGICAL OTHER SURGICAL HISTORY Right PROCEDURE: [place] UNLISTED PROCEDURE FOREARM/WRIST; COMMENT: R-wrist surgery OTHER SURGICAL HISTORY Left PROCEDURE: [place] ANESTHESIA ARTHROSCOPIC HIP JOINT PROCEDURE; COMMENT: L [...] Health Maintenance Due Date Last Done Comments Zoster Vaccines (2 of 2) 08/07/2021 06/12/2021 Cholesterol Screening (Lipid Panel) 08/15/2023 Colorectal Cancer Screening: Colonoscopy 08/15/2023 HIV Screening 08/15/2023 Hepatitis C Screening 08/15/2023 Social Influencers of Health Screening 08/15/2023 COVID-19 Vaccine ( season) 2024 06/04/2023, 06/05/2021, 10/10/2020, Additional history exists Depression Screening 07/21/2024 Influenza Vaccine (#1) 2025 , 06/04/2023, 06/05/2021, Additional history exists DTaP,Tdap,and Td Vaccines (4 - Td or Tdap) 03/03/2034 03/03/2024, 01/28/2010, 12/22/2005 RSV Immunization Adult Patients Completed 06/04/2023 Pneumococcal Vaccine: 50+ Years Completed 10/14/2024, 06/12/2021, 02/15/2020, Additional history exists Lung Cancer Screening (Low Dose CT) Discontinued 12/21/2024, 08/01/2023 HIB Vaccines Aged Out No longer [...] to complete this topic RSV Immunization Patients Under 20 months Aged Out No longer eligible based on patient's age to complete this topic Varicella Vaccines Aged Out No longer eligible based on patient's age to complete this topic Procedures Procedure Name Priority Date/Time Associated Diagnosis Comments CT LUNG SCREENING Routine 12/21/2024 8:4 7 AM EDT Encounter for screening for malignant neoplasm of respiratory organs Nicotine dependence, cigarettes, uncomplicated from Last 3 Months Results * CT Lung Screening (12/21/2024 8:47 AM EDT) Anatomical Region Laterality Modality Chest Computed Tomogra phy 12/21/2024 11:0 4 AM EDT Impressions 12/21/2024 11:14 AM EDT No suspicious mass or nodule. LUNG RADS: Lung-RADS 2: BENIGN S Modifier (Significant or Potentially Significant Findings): None present No suspicious nonpulmonary findings. RECOMMENDATIONS: 12 month screening low dose CT -------- FINAL REPORT -------- Dictated By: Bud Frazier Dictated Date: 12/21/2024 11:04 ET Assigned Physician: Bud Frazier Reviewed and Electronically Signed By: Bud Frazier Signed Date: 12/21/2024 11:14 ET Workstation ID: [id number] Transcribed By: Self Edit Transcribed Date: 12/21/2024 11:04 ET Narrative 12/21/2024 11:14 AM EDT EXAMINATION: CT CHEST WITHOUT CONTRAST LUNG CANCER SCREENING, LOW DOSE CLINICAL INFORMATION: Lung cancer screening. Current smoker. COMPARISON: None TECHNIQUE: Multidetector CT. Examination of the chest. Examination of the chest without IV contrast. Reformatting in the coronal and sagittal planes. Device: [employer] DLP: 170 mGy-cm CTDI: 4.89 Dose optimization was performed including the use of low-dose iterative reconstruction technique with automatic exposure control based on patient size. Type of contrast: None Volume of IV contrast: None Volume of contrast discarded: 0 mL FINDINGS: LUNG: No abnormality of the trachea or mainstem bronchi. LUNG NODULES: There are no suspicious nodules or masses. There are a few scattered micronodules all of which measure less than 0.4 cm. There is calcified granuloma in the left upper lung. OTHER PULMONARY: There is no focal pneumonia. There are a few reticular peripheral opacities greatest in lower lung zones. There is no honeycomb formation. MEDIASTINUM: There are no enlarged mediastinal or hilar lymph nodes. No suspicious abnormalities of the esophagus. CARDIAC: The heart is not enlarged. No pericardial fluid or thickening There are marked coronary calcifications. There may be a coronary stent in the LAD. VASCULAR: There is no thoracic aortic aneurysm. The main pulmonary artery is normal caliber. I suspect calcification in the aortic valve PLEURA: There is no pleural fluid or pneumothorax AXILLA/CHEST WALL: There are no enlarged axillary lymph nodes. No chest wall mass demonstrated. VISUALIZED UPPER ABDOMEN: No suspicious abnormality on limited assessment of the visualized upper abdomen. Rim calcification between the right lobe of the liver and the diaphragm could be from fat necrosis. MUSCULOSKELETAL: No suspicious focal bony lesion demonstrated. There are degenerative changes with soft tissue calcifications around both shoulders. Procedure Note Bud Frazier MD - 12/21/2024 EXAMINATION: CT CHEST WITHOUT CONTRAST LUNG CANCER SCREENING, LOW DOSE CLINICAL INFORMATION: Lung cancer screening. Current smoker. COMPARISON: None TECHNIQUE: Multidetector CT. Examination of the chest. Examination of the chest without IV contrast. Reformatting in the coronal and sagittal planes. Device: [employer] DLP: 170 mGy-cm CTDI: 4.89 Dose optimization was performed including the use of low-dose iterativereconstruction technique with automatic exposure control based on patientsize. Type of contrast: None Volume of IV contrast: None Volume of contrast discarded: 0 mL FINDINGS: LUNG: No abnormality of the trachea or mainstem bronchi. LUNG NODULES: There are no suspicious nodules or masses. There are a few scattered micronodules all of which measure less than 0.4cm. There is calcified granuloma in the left upper lung. OTHER PULMONARY: There is no focal pneumonia. There are a few reticularperipheral opacities greatest in lower lung zones. There is no honeycombformation. MEDIASTINUM: There are no enlarged mediastinal or hilar lymph nodes. Nosuspicious abnormalities of the esophagus. CARDIAC: The heart is not enlarged. No pericardial fluid or thickening There are marked coronary calcifications. There may be a coronary stent inthe LAD. VASCULAR: There is no thoracic aortic aneurysm. The main pulmonary arteryis normal caliber. I suspect calcification in the aortic valve PLEURA: There is no pleural fluid or pneumothorax AXILLA/CHEST WALL: There are no enlarged axillary lymph nodes. No chestwall mass demonstrated. VISUALIZED UPPER ABDOMEN: No suspicious abnormality on limited assessmentof the visualized upper abdomen. Rim calcification between the right lobeof the liver and the diaphragm could be from fat necrosis. MUSCULOSKELETAL: No suspicious focal bony lesion demonstrated. There aredegenerative changes with soft tissue calcifications around bothshoulders. IMPRESSION: No suspicious mass or nodule. LUNG RADS: Lung-RADS 2: BENIGN S Modifier (Significant or Potentially Significant Findings): Nonepresent No suspicious nonpulmonary findings. RECOMMENDATIONS: 12 month screening low dose CT -------- FINAL REPORT -------- Dictated By: Bud Frazier Dictated Date: 12/21/2024 11:04 ET Assigned Physician: Bud Frazier Reviewed and Electronically Signed By: Bud Frazier Signed Date: 12/21/2024 11:14 ET Workstation ID: [id number] Transcribed By: Self Edit Transcribed Date: 12/21/2024 11:04 ET Adolfo Miller MD IMG CT PROCEDURES Final Result from Last 3 Months Insurance [facility] MEDICAID - [place] Care Teams Optometry Doctor Relationship Specialty Start Date End Date Alirio Iqbal NP [address] [place], [place] PCP - General 06/19/23
== END 2025-02-10 10:33 | disposition home or self-care (01) ==
PROVIDERS: PCP Nurse Practitioner Family; Visit Provider Orthopaedic Surgery
DX: M17.12 Unilateral primary osteoarthritis, left knee (principal); M19.012 Primary osteoarthritis, left shoulder; E11.9 Type 2 diabetes mellitus without complications
CPT/HCPCS: 20610

== ENCOUNTER → 2025-02-10 09:22 | Outpatient (BNVA) | payer OTHER, SELFPAY | PROVIDERS: PCP Nurse Practitioner Family; Visit Provider Orthopaedic Surgery | DX: M17.12 Unilateral primary osteoarthritis, left knee (principal); M19.012 Primary osteoarthritis, left shoulder; E11.9 Type 2 diabetes mellitus without complications; Z96.643 Presence of artificial hip joint, bilateral | CPT/HCPCS: 20610; 99212; J0665; J1100; J2003 ==

== ENCOUNTER 2025-02-22 09:12 | Outpatient (AMB) | payer OTHER, SELFPAY ==
[2025-02-22 09:14] VITALS: BP 148/98; PULSE 82; TEMP 36.8; O2SAT 96; BMI 46.5
--- NOTE | 2025-02-22 09:14 | A.OFFPC_ITS ---
Vital Signs 02/22/25 09:14 Height 5 ft 7 in Weight 297 lb BMI 46.5 BP 148/98 H Blood Pressure Location Lt brachial Position Sitting Pulse 82 Pulse Source Pulse Oximeter Temp 98.3 F Temp Source Oral Pulse Oximetry (%) 96 Oxygen Delivery Method Room Air Intake Visit Reasons: PE Store Protection Specialist Required: No Accompanied by: Self / Same As Patient Allergies No Known Allergies Allergy (Verified 02/22/25 09:45) Medication List - Last Reconciled 02/22/25 by HAYLEY Shaw- amlodipine 5 mg PO DAILY blood sugar diagnostic (FreeStyle Lite Strips) Test blood sugar twice a day blood-glucose meter (FreeStyle Lite Meter kit) Test blood sugar twice a day cetirizine (Zyrtec) 10 mg PO DAILY duloxetine 30 mg PO DAILY gabapentin 100 mg PO TID garlic 400 mg PO DAILY ibuprofen (IBU) 800 mg PO DAILY PRN 90 days ipratropium bromide 2 sprays intranasal DAILY krill oil mg PO lancets (FreeStyle Lancets) Test blood sugar twice a day lisinopril 40 mg PO DAILY 90 days metformin ER 500 mg PO BID nicotine 1 patch transdermal DAILY rosuvastatin 40 mg PO DAILY 90 days semaglutide (Ozempic) 0.25 mg (0.368 mL) subcut QWEEK walker Folding Front wheeled walker Tobacco use date assessed: 02/22/25 Dental Screening Dental Screen Date: 02/22/25 Did you have a dental visit in the last 12 months?: Yes Did you have a dental problem in the last 6 months where you did not have access to dental care?: No Was dental information given to patient?: Patient has dentist HPI PE HPI Details History of Present Illness The patient is a 60-year-old male presenting with a wellness check and preventative care. He has a history of diabetes mellitus, although this was not the focus of today's discussion. The patient is noted to be obese, but he reports doing quite well overall. Part of the LDCT program for smoking. Pt knows the dangers of smoking Preventative care measures were discussed, including the need for a colonoscopy, which is currently due. The patient denies any chest pain, dyspnea, abdominal pain, hematochezia, constipation, diarrhea, suicidal ideation, or homicidal ideation. Health Maintenance - Colonoscopy is due for colorectal canc er screening Social History Review of Systems - Cardiovascular: Denies chest pain - Respiratory: Denies dyspnea - Gastrointestinal: Denies abdominal emeli n, hematochezia, constipation, diarrhea - Psychiatric: Denies suicidal ideation, homicidal ideation Physical Exam General: Cooperative, healthy appearing, comfortable, no acute distress and well developed, morbidly obese Orientation: Patient oriented x3 Limitations: No limitations Head: Normal to inspection Ears: Hearing grossly normal bilaterally Nose: Normal external nose present Face and sinus: Normal facial exam Eyes: Appearance normal, both eyes and all related structures Neck: Normal visual inspection and Yes full ROM Respiratory: Normal respiratory effort and able to speak in complete sentences. Clear to auscultation bilaterally Cardiovascular: Regular rate and rhythm. Normal S1 and S2 GI: Normal to inspection. Soft to palpation and nontender : Testicles without masses/lesions and no hernias appreciated Skin: No rashes or lesions noted Neuro: Patient oriented x3 Extremities: Normal to inspection Results Plan The plan includes obtaining an electrocardiogram EKG) today, as it has been many years since the last one was performed. A referral for a colonoscopy will be made to address the overdue screening for colorectal cancer. Discussion Notes I discussed with the patient the importance of obtaining an EKG today due to the time elapsed since the last one. We also talked about the need for a colonoscopy, and I will arrange for a referral to ensure this screening is completed. Patient Instructions - Get an EKG today as planned. - Follow up with the referral for a colo noscopy to ensure timely screening. [facility] Medical History HLD (hyperlipidemia) Ankle fracture, left Morbid obesity Hypertension Primary osteoarthritis of right hip Gout Rupture of right biceps tendon Surgical History History of ankle surgery History of right hip replacement History of carpal tunnel repair H/O colonoscopy H/O right wrist surgery History of left hip replacement Family History Father COPD (chronic obstructive pulmonary disease) Cancer Hypertension Substance abuse Mother COPD (chronic obstructive pulmonary disease) Hypertension Substance abuse Social History Housing: House Are you a primary care navigator to a significant other at home: No Do you presently have visiting nurse or other home services: No Patient Tobacco Use Status: Current everyday Tobacco user Tobacco use type: Cigarette Cigarettes Per Day: 2 Years Smoked: 15 e-Cigarette/Vaping Use: Currently Using Second Hand Smoke Exposure: No Substance Use Type: Marijuana service: No Current occupational status: employed 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 1. Little interest or pleasure in doing things: several days 2. Feeling down, depressed, or hopeless: not at all 3. Trouble falling or staying asleep, or sleeping too much: more than half the days 4. Feeling tired or having little energy: several days 5. Poor appetite or overeating: several days 6. Feeling bad about yourself - or that you are a failure or have let yourself or your family down: not at all 7. Trouble concentrating on things, such as reading the newspaper or watching television: not at all 8. Moving or speaking so slowly that other people could have noticed. Or the opposite - being so fidgety or restless that you have been moving around a lot more than usual: not at all 9. Thoughts that you would be better off or of hurting yourself in some way: not at all Total score: 5 Depression Screening Interpretation: Negative Depression Screening Done: Yes 84886 - PHQ-9 Billing: Yes Source: Developed by Drs. Kevin Grant, Gemini Collazo, Marcello Pinzon and colleagues, with an educational cara from [employer]. Thrive Questionnaire Date Thrive assessed: 10/07/24 I am a: Patient What is your living situation today?: I have a steady place to live Within the past 12 months, did the food you bought not last and you didn't have the money to get more?: Sometimes True Within the past 12 months, did you worry whether your food would run out before you got money to buy more?: Sometimes True Do you have trouble paying for medicines?: No Do you have trouble getting transportation to medical appointments?: No Do you have trouble paying your heating and electricity bill?: No Do you have trouble taking care of your child, family member or friend?: No Do you have trouble with day-to-day activities such as bathing, preparing meals, shopping, managing finances, etc.?: Yes Are you currently unemployed and looking for a job?: No Are you interested in more education?: No Please select the resources that you would like help with: None Currently or been in a relationship where the following occur: No concerns reported THRIVE Score: 2 AISHA-7 AMB Questionnaire AISHA-7 Date AISHA - 7 assessed: 02/22/25 Feeling nervous, anxious, or on edge: 0 = Not at all Not being able to stop or control worryin = Not at all Worrying too much about different things: 0 = Not at all Trouble relaxin = Not at all Being so restless that it is hard to sit still: 0 = Not at all Becoming easily annoyed or irritable: 0 = Not at all Feeling afraid as if something awful might happen: 0 = Not at all Total AISHA-7 score (0-4 normal; 5-9 mild; 10-14 moderate; 15-21 severe): 0 Source: Developed by Drs. Kevin Grant, Gemini Collazo, Marcello centeno nd colleagues, with an educational cara from [employer]. AISHA-7 Assessment Billing AISHA-7 Assessment Tool: AISHA-7 Assessment 89863 Physical exam (Primary Care) Vital Signs: Last Vital Signs Temp 98.3 F 02/22/25 09:14 Pulse 82 02/22/25 09:14 BP 148/98 H 02/22/25 09:14 Pulse Ox 96 02/22/25 09:14 Oxygen Delivery Method Room Air 02/22/25 09:14 BMI result Body Mass Index 46.5 Tobacco/Smoking Status: Tobacco use Status Tobacco use date assessed 02/22/25 02/22/25 09:19 Patient Tobacco Use Status Current everyday Tobacco 02/22/25 09:19 Tobacco use type Cigarette 02/22/25 09:19 e-Cigarette/Vaping Use Currently Using 02/22/25 09:19 PHQ-9: PHQ-9 Score PHQ-9: Total score 5 02/22/25 09:46 Depression Screening Interpretation: Negative Thrive Assessment: Date of Thrive Assessment Date Thrive assessed 10/07/24 02/22/25 09:19 Currently or been in a relationship where the following occur: No concerns reported Coding Level of Care Code Est Pt Prev Care 40-64y(25284) Diagnoses Encounter for routine adult physical exam with abnormal findings Z00. Screening PSA (prostate specific antigen) Z12.5 Screening for colon cancer Z12.11 Vitamin D deficiency E55.9 Additional Codes AISHA-7 Assessment Billing - AISHA-7 Assessment Tool: AISHA-7 Assessment 83256 ([id number]) PHQ-9 - 42812 - PHQ-9 Billing: Yes ([id number]) Assessment & Plan Assessment & Plan (1) Encounter for routine adult physical exam with abnormal findings: Code(s): Z00. - Encounter for general adult medical examination with abnormal findings Category: Medical (2) Screening PSA (prostate specific antigen): Code(s): Z12.5 - Encounter for screening for malignant neoplasm of prostate Category: Medical (3) Screening for colon cancer: Code(s): Z12.11 - Encounter for screening for malignant neoplasm of colon Category: Medical (4) Vitamin D deficiency: Code(s): E55.9 - Vitamin D deficiency, unspecified Category: Medical Plan . Orders: Orders Complete Blood Count Auto Diff Today Z00.01 - Encounter for general adult medical examination with abnormal findings, Z12.5 - Encounter for screening for malignant neoplasm of prostate TSH reflex Free T4 Today Z00.01 - Encounter for general adult medical examinat ion with abnormal findings, Z12.5 - Encounter for screening for malignant neoplasm of prostate Lipid Panel Today Z00.01 - Encounter for general adult medical examination with abnormal findings, Z12.5 - Encounter for screening for malignant neoplasm of prostate Vitamin D 25-OH Total Today E55.9 - Vitamin D deficiency, unspecified Comprehensive Cut Off. Panel Fast Today Z00. - Encounter for general adult medical examination with abnormal findings, Z12.5 - Encounter for screening for malignant neoplasm of prostate UA CC w/rflx Micro + Cult Today Z00.01 - Encounter for general adult medical examination with abnormal findings, Z12.5 - Encounter for screening for malignant neoplasm of prostate AMB EKG-In Office Today Z00. - Encounter for general adult medical examination with abnormal findings Referrals Gastroenterology Referral Z12.11 - Encounter for screening for malignant neoplasm of colon Medications: New tirzepatide (Mounjaro) for 4 weeks 2.5 mg (0.5 mL) subcut QWEEK 2 mL 0RF Discontinued semaglutide (Ozempic) for 4 weeks Discontinued Reason: Doctor's Order 0.25 mg (0.368 mL) subcut QWEEK 3 mL 0RF
--- OUTSIDE RECORDS SUMMARY | 2025-02-22 09:30 | XMS_ITS | Clinical Summary ---
Author Organization [facility] [address] [facility] Address [address] [place] [address] Phone Care Team Providers Care Doctor Of Medicine Name Role Phone Alirio Iqbal NP Primary Care Provider Encounters Date Type Department Care Team Description 12/21/2024 8:22 AM EDT - 12/21/2024 11:59 PM EDT Hospital Encounter [facility] CT Scan [address] [place] [id number] Encounter for screening for malignant neoplasm of respiratory organs; Nicotine dependence, cigarettes, uncomplicated Discharge Disposition: Home or Self Care from Last 3 Months Surgical History Surgery Date Site/Laterality Comments CARPAL TUNNEL RELEASE PROCEDURE: HISTORICAL CARPAL TUNNEL REL OTHER SURGICAL HISTORY PROCEDURE: COLONOSCOPY, SURGICAL OTHER SURGICAL HISTORY Right PROCEDURE: [place] UNLISTED PROCEDURE FOREARM/WRIST; COMMENT: R-wrist surgery OTHER SURGICAL HISTORY Left PROCEDURE: [place] ANESTHESIA ARTHROSCOPIC HIP JOINT PROCEDURE; COMMENT: L [...] Signed Date: 12/21/2024 11:14 ET Workstation ID: [id number] Transcribed By: Self Edit Transcribed Date: 12/21/2024 11:04 ET Narrative 12/21/2024 11:14 AM EDT EXAMINATION: CT CHEST WITHOUT CONTRAST LUNG CANCER SCREENING, LOW DOSE CLINICAL INFORMATION: Lung cancer screening. Current smoker. COMPARISON: None TECHNIQUE: Multidetector CT. Examination of the chest. Examination of the chest without IV contrast. Reformatting in the coronal and sagittal planes. Device: Usounder DLP: 170 mGy-cm CTDI: 4.89 Dose optimization [...] the coronal and sagittal planes. Device: Revolution Patterson DLP: 170 mGy-cm CTDI: 4.89 Dose optimization [...] Signed Date: 12/21/2024 11:14 ET Workstation ID: [id number] Transcribed By: Self Edit Transcribed Date: 12/21/2024 11:04 ET Adolfo Miller MD IMG CT PROCEDURES Final Result from Last 3 Months Insurance [facility] MEDICAID - [place] Care Teams Doctor Of Medicine Relationship Specialty Start Date End Date Alirio Iqbal NP [address] [place], [place] PCP - General 06/19/23
== END 2025-02-22 10:11 | disposition home or self-care (01) ==
LOC: HO.HMCC 09:13
PROVIDERS: PCP Nurse Practitioner Family; Visit Provider Nurse Practitioner Family
DX: Z00.01 Encounter for general adult medical examination with abnormal findings (principal); Z12.5 Encounter for screening for malignant neoplasm of prostate; Z12.11 Encounter for screening for malignant neoplasm of colon; E55.9 Vitamin D deficiency, unspecified

== ENCOUNTER → 2025-02-22 09:12 | Outpatient (BNVA) | payer OTHER, SELFPAY | PROVIDERS: PCP Nurse Practitioner Family; Visit Provider Nurse Practitioner Family | DX: Z00.01 Encounter for general adult medical examination with abnormal findings (principal); E55.9 Vitamin D deficiency, unspecified; E11.9 Type 2 diabetes mellitus without complications; E66.9 Obesity, unspecified; F17.210 Nicotine dependence, cigarettes, uncomplicated; Z68.42 Body mass index [BMI] 45.0-49.9, adult | CPT/HCPCS: 96127; 99396 ==

== ENCOUNTER 2025-03-23 06:26 | Outpatient (REF) | payer OTHER, SELFPAY ==
--- OUTSIDE RECORDS SUMMARY | 2025-03-23 06:30 | XMS_ITS | Clinical Summary ---
Author Organization [facility] [address] [facility] Address [address] [place] [address] Phone Care Team Providers Care Reheat Furnace Operator Name Role Phone Alirio Iqbal NP Primary Care Provider Encounters Date Type Department Care Team Description 12/21/2024 8:22 AM EDT - 12/21/2024 11:59 PM EDT Hospital Encounter [facility] CT Scan [address] [place] [phone] Encounter for screening for malignant neoplasm of respiratory organs; Nicotine dependence, cigarettes, uncomplicated Discharge Disposition: Home or Self Care from Last 3 Months Surgical History Surgery Date Site/Laterality Comments CARPAL TUNNEL RELEASE PROCEDURE: HISTORICAL CARPAL TUNNEL REL OTHER SURGICAL HISTORY PROCEDURE: COLONOSCOPY, SURGICAL OTHER SURGICAL HISTORY Right PROCEDURE: [place] UNLISTED PROCEDURE FOREARM/WRIST; COMMENT: R-wrist surgery OTHER SURGICAL HISTORY Left PROCEDURE: [place] ANESTHESIA ARTHROSCOPIC HIP JOINT PROCEDURE; COMMENT: L [...] 08/15/2023 Social Influencers of Health Screening 08/15/2023 Depression Screening 07/21/2024 COVID-19 Vaccine ( season) 2025 06/04/2023, 06/05/2021, 10/10/2020, Additional history exists Influenza Vaccine (#1) 2025 , 06/04/2023, 06/05/2021, [...] Signed Date: 12/21/2024 11:14 ET Workstation ID: [id number] Transcribed By: Self Edit Transcribed Date: 12/21/2024 11:04 ET Narrative 12/21/2024 11:14 AM EDT EXAMINATION: CT CHEST WITHOUT CONTRAST LUNG CANCER SCREENING, LOW DOSE CLINICAL INFORMATION: Lung cancer screening. Current smoker. COMPARISON: None TECHNIQUE: Multidetector CT. Examination of the chest. Examination of the chest without IV contrast. Reformatting in the coronal and sagittal planes. Device: [employer] Medical[employer] DLP: 170 mGy-cm CTDI: 4.89 Dose optimization [...] the coronal and sagittal planes. Device: Revolution Chambers DLP: 170 mGy-cm CTDI: 4.89 Dose optimization [...] Signed Date: 12/21/2024 11:14 ET Workstation ID: [id number] Transcribed By: Self Edit Transcribed Date: 12/21/2024 11:04 ET Adolfo Miller MD IMG CT PROCEDURES Final Result from Last 3 Months Insurance [facility] MEDICAID - [place] Care Teams Reheat Furnace Operator Relationship Specialty Start Date End Date Alirio Iqbal NP [address] [place], [place] PCP - General 06/19/23
[2025-03-23 10:15] LABS: MANUAL DIFF FLAG NO
[2025-03-23 10:24] LABS: Hematocrit 47.6 % (42.0-52.0); Hemoglobin 16.0 g/dl (14.0-18.0); Imm Gran Abs Auto 0.03 X10*3/uL (0.00-0.03); Imm Gran Pct Auto 0.4 % (0.0-0.4); Lymphocytes Absolute Auto 2.7 X10*3/uL (1.2-4.9); Mean Corpuscular HGB Conc 33.6 g/dl (31.0-36.0); Mean Corpuscular Hemoglobin 30.8 pg (27.0-33.0); Mean Corpuscular Volume 91.5 fL (80.0-98.0); NRBC Abs Auto 0.000 X10*3/uL (0.0-0.012); NRBC Pct Auto 0.0 /100WBC (0.0-0.2); Platelet Count 205 X10*3/uL (160-400); Red Blood Count 5.20 X10*6/uL (4.60-5.80); White Blood Count 8.5 X10*3/uL (4.8-10.8)
[2025-03-23 10:27] LABS: Appearance Urine Clear; Glucose Urine UA Negative (Negative); PH 7.0 (5.0-9.0); Specific Gravity - Urine 1.020 (1.005-1.025); UMIC TRIGGER UACC YES
[2025-03-23 10:47] LABS: Alanine Aminotransferase 22 U/L (0-40); Albumin Level 4.5 g/dL (3.5-5.0); Alkaline Phosphatase 72 U/L (39-117); Anion Gap 11 (12-20); Aspartate Amino Transferase 27 U/L (5-37); Blood Urea Nitrogen 13 mg/dL (9-16); Calcium 9.1 mg/dL (8.4-10.2); Carbon Dioxide 30 mmol/L (22-29); Chloride 102 mmol/L (96-108); Cholesterol 141 mg/dL (<200); Estimated Glomerular Filt Rate > 60; HDL Cholesterol 37 mg/dL (>40); Potassium 4.0 mmol/L (3.3-5.1); Sodium 139 mmol/L (135-145); Total Protein 6.7 g/dL (6.5-8.0); Triglycerides 123 mg/dL (<150)
== END 2025-03-23 06:27 | disposition home or self-care (01) ==
LOC: HO.HMGCLDS 06:26
PROVIDERS: PCP Nurse Practitioner Family; Visit Provider Nurse Practitioner Family
DX: Z00.01 Encounter for general adult medical examination with abnormal findings (principal); Z12.5 Encounter for screening for malignant neoplasm of prostate; E55.9 Vitamin D deficiency, unspecified
CPT/HCPCS: 36415; 80053; 80061; 81001; 82306; 84443; 85025

== ENCOUNTER 2025-05-16 08:06 | Outpatient (AMB) | payer OTHER, SELFPAY ==
[2025-05-16 08:09] VITALS: BMI 44.6
--- NOTE | 2025-05-16 08:09 | MHC.OFFVIS ---
Vital Signs 05/16/25 08:09 Height 5 ft 7 in Weight 285 lb BMI 44.6 Intake Visit Reasons: OV-LT shoulder/Left knee injection F/U Intake Note: Hans is a 60 year old male who presents today for a a follow up s/p left knee and left shoulder injection from 02/10/25. Patient reports that the injections were not very helpful. He would like to discuss surgery for the left shoulder as his pain is excruciating. He would also like to discuss Left Knee Gel Injections. Allergies No Known Allergies Allergy (Verified 02/22/25 09:45) HPI HPI OV-LT shoulder/Left knee injection F/U: Details: Hans is a 60 year old male who presents today for a a follow up s/p left knee and left shoulder injection from 02/10/25. Patient reports that the injections were helpful for only a short time. His primary problem is his left shoulder. He describes years shoulder pain that prevented him from using his arm comfortably. He has difficulty with daily activities. He can not elevated over the level of the shoulder and has difficulty sleeping. He has had 3-4 steroid injections in his shoulder which have all been helpful for a few weeks. He is diabetic and overweight and was on Mounjaro but it was stopped for some unknown reason he is trying to get back on it. He also reports left knee pain. This has been injected multiple times and the relief has been minimal. He has minimal pain when he is walking on flat ground but stairs and standing from a squat bother him. [facility] Medical History HLD (hyperlipidemia) Ankle fracture, left Morbid obesity Hypertension Primary osteoarthritis of right hip Gout Rupture of right biceps tendon Surgical History History of ankle surgery History of right hip replacement History of carpal tunnel repair H/O colonoscopy H/O right wrist surgery History of left hip replacement Family History Father COPD (chronic obstructive pulmonary disease) Cancer Hypertension Substance abuse Mother COPD (chronic obstructive pulmonary disease) Hypertension Substance abuse Social History Housing: House Are you a primary resident care spec to a significant other at home: No Do you presently have visiting nurse or other home services: No Patient Tobacco Use Status: Current everyday Tobacco user Tobacco use type: Cigarette Cigarettes Per Day: 2 Years Smoked: 15 e-Cigarette/Vaping Use: Currently Using Second Hand Smoke Exposure: No Substance Use Type: Marijuana service: No Current occupational status: employed 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 Passive and active abduction to 80 degrees and floor forward flexion to 120. Restricted in CON motions. Left knee with 5-130 no effusion stable to v/v stress Assessment & Plan Assessment & Plan (1) Osteoarthritis of left shoulder: Code(s): M19.012 - Primary osteoarthritis, left shoulder Category: Medical Plan: This is a 60-year-old gentleman with osteoarthritis of the left glenohumeral joint. He has failed physical therapy and injections and continues to feel the quality of his life is diminished in his motion is limited. He has suffers from pain inability to function and I recommend shoulder arthroplasty. I discussed the surgery with him. His hemoglobin A1c in July was 6.5. He carries some extra weight his abdominal region but his muscle tone and shoulders are healthy. I do think he would benefit from being on a GLP 1 agonist. He agrees with me and he will talk to his primary care about this. I discussed the surgical risks of shoulder replacement surgery including, but not limited to, infection, dislocation, fracture, aseptic loosening, nerve injury, need for further surgery. He understands this. We will begin the preoperative clearance process. (2) Patellofemoral arthritis of left knee: Code(s): M17.12 - Unilateral primary osteoarthritis, left knee Category: Medical Plan: [place]guiano patellofemoral arthritis of the left knee. Steroid injections have not been helpful and I recommend a high density viscosupplementation. Orders: Orders MR shoulder LT wo con Today M19.012 - Primary osteoarthritis, left shoulder Coding Level of Care Code Est Pt Level 4 (85549) Complex EM visit Add On G2211 Diagnoses Osteoarthritis of left shoulder M19.012 Patellofemoral arthritis of left knee M17.12
--- OUTSIDE RECORDS SUMMARY | 2025-05-16 08:20 | XMS_ITS | Clinical Summary ---
Author Organization [facility] [address] [facility] Address [address] [place] [address] Phone Care Team Providers Care Dry Room Operator Name Role Phone Alirio Iqbal NP Primary Care Provider Surgical History Surgery Date Site/Laterality Comments CARPAL TUNNEL RELEASE PROCEDURE: HISTORICAL CARPAL TUNNEL REL OTHER SURGICAL HISTORY PROCEDURE: COLONOSCOPY, SURGICAL OTHER SURGICAL HISTORY Right PROCEDURE: [place] UNLISTED PROCEDURE FOREARM/WRIST; COMMENT: R-wrist surgery OTHER SURGICAL HISTORY Left PROCEDURE: [place] ANESTHESIA ARTHROSCOPIC HIP JOINT PROCEDURE; COMMENT: L [...] Health Maintenance Due Date Last Done Comments Colorectal Cancer Screening: Colonoscopy 1963 Zoster Vaccines (2 of 2) 08/07/2021 06/12/2021 Cholesterol Screening (Lipid Panel) 08/15/2023 HIV Screening 08/15/2023 Hepatitis C Screening [...] dependence, cigarettes, uncomplicated from Last 3 Months or Most Recently Relevant to Health Maintenance Results * CT Lung Screening (12/21/2024 8:47 [...] Signed Date: 12/21/2024 11:14 ET Workstation ID: [id number] Transcribed By: Self Edit Transcribed Date: 12/21/2024 11:04 ET Narrative 12/21/2024 11:14 AM EDT EXAMINATION: CT CHEST WITHOUT CONTRAST LUNG CANCER SCREENING, LOW DOSE CLINICAL INFORMATION: Lung cancer screening. Current smoker. COMPARISON: None TECHNIQUE: Multidetector CT. Examination of the chest. Examination of the chest without IV contrast. Reformatting in the coronal and sagittal planes. Device: Industry Weaponer DLP: 170 mGy-cm CTDI: 4.89 Dose optimization [...] in the coronal and sagittal planes. Device: [employer] Weaponer DLP: 170 mGy-cm CTDI: 4.89 Dose optimization [...] Signed Date: 12/21/2024 11:14 ET Workstation ID: [id number] Transcribed By: Self Edit Transcribed Date: 12/21/2024 11:04 ET Adolfo Miller MD IM CT PROCEDURES Final Result from Last 3 Months or Most Recently Relevant to Health Maintenance Insurance [facility] [place] [employer] MED[place] - [place] YULISSA RAMIREZ [id number] Care Teams Dry Room Operator Relationship Specialty Start Date End Date Alirio Iqbal NP [address] [facility] [place] PCP - General 06/19/23
== END 2025-05-16 08:55 | disposition home or self-care (01) ==
LOC: HO.HOS 08:07
PROVIDERS: PCP Nurse Practitioner Family; Visit Provider Orthopaedic Surgery
DX: M19.012 Primary osteoarthritis, left shoulder (principal); M17.12 Unilateral primary osteoarthritis, left knee
CPT/HCPCS: 99214

== ENCOUNTER → 2025-05-16 08:06 | Outpatient (BNVA) | payer OTHER, SELFPAY | PROVIDERS: PCP Nurse Practitioner Family; Visit Provider Orthopaedic Surgery | DX: M17.12 Unilateral primary osteoarthritis, left knee (principal); M19.012 Primary osteoarthritis, left shoulder | CPT/HCPCS: 99212 ==

== ENCOUNTER 2025-05-31 09:17 | Outpatient (AMB) | payer OTHER, SELFPAY ==
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
--- OUTSIDE RECORDS SUMMARY | 2025-05-31 10:07 | XMS_ITS | Clinical Summary ---
Author Organization [facility] [address] [facility] Address [address] [place] [address] Phone Care Team Providers Care Senior Examiner Name Role Phone Alirio Iqbal NP Primary Care Provider Surgical History Surgery Date Site/Laterality Comments CARPAL TUNNEL RELEASE PROCEDURE: HISTORICAL CARPAL TUNNEL REL OTHER SURGICAL HISTORY PROCEDURE: COLONOSCOPY, SURGICAL OTHER SURGICAL HISTORY Right PROCEDURE: [place] UNLISTED PROCEDURE FOREARM/WRIST; COMMENT: R-wrist surgery OTHER SURGICAL HISTORY Left PROCEDURE: [place] ANESTHESIA ARTHROSCOPIC HIP JOINT PROCEDURE; COMMENT: L [...] Signed Date: 12/21/2024 11:14 ET Workstation ID: [id number] Transcribed By: Self Edit Transcribed Date: 12/21/2024 11:04 ET Narrative 12/21/2024 11:14 AM EDT EXAMINATION: CT CHEST WITHOUT CONTRAST LUNG CANCER SCREENING, LOW DOSE CLINICAL INFORMATION: Lung cancer screening. Current smoker. COMPARISON: None TECHNIQUE: Multidetector CT. Examination of the chest. Examination of the chest without IV contrast. Reformatting in the coronal and sagittal planes. Device: [employer] DLP: 170 mGy-cm CTDI: 4.89 Dose optimization [...] in the coronal and sagittal planes. Device: [employer] DLP: 170 mGy-cm CTDI: 4.89 Dose optimization [...] Frazier Reviewed and Electronically Signed By: Bud Fraizer Signed Date: 12/21/2024 11:14 ET Workstation ID: [id number] Transcribed By: Self Edit Transcribed Date: 12/21/2024 11:04 ET Adolfo Miller MD IM CT PROCEDURES Final Result from Last 3 Months or Most Recently Relevant to Health Maintenance Insurance [facility] [employer] PLAN MEDICAID - [place] Y[place]SA RAMIREZ [id number] Care Teams Senior Examiner Relationship Specialty Start Date End Date Alirio Iqbal NP [address] [facility] [place] PCP - General 06/19/23
== END 2025-05-31 10:04 | disposition home or self-care (01) ==
LOC: HO.HUSH 09:18
PROVIDERS: PCP Nurse Practitioner Family; Visit Provider Urology
DX: R31.29 Other microscopic hematuria (principal)
CPT/HCPCS: 99213

== ENCOUNTER → 2025-05-31 09:17 | Outpatient (BNVA) | payer OTHER, SELFPAY | PROVIDERS: PCP Nurse Practitioner Family; Visit Provider Urology | DX: R31.29 Other microscopic hematuria (principal) | CPT/HCPCS: 99212 ==

== ENCOUNTER 2025-06-20 10:45 | Outpatient (AMB) | payer OTHER, SELFPAY ==
[2025-06-20 10:46] VITALS: BMI 43.8
--- NOTE | 2025-06-20 10:46 | MHC.OFFVIS ---
Vital Signs 06/20/25 10:46 Height 5 ft 7 in Weight 280 lb BMI 43.8 Intake Visit Reasons: OV-INJ Lt knee Intake Note: Hans is a 60 year old male who presents today for a Left Knee Synvisc One Injection & a follow up for his left shoulder OA. At his last visit we discussed Left TSA as well as introduction of a GLP1, patient agreed to discuss this with his PCP. PCP: Alirio Iqbal ([facility]) Current QD tobacco use - Nicotine Patches Has been on Mounjaro, last filled 04/29/25 , but has not received medication DM - Last A1c 11/15/24 6.5% Allergies No Known Allergies Allergy (Verified 06/20/25 10:48) HPI HPI OV-INJ Lt knee: Details: Hans is here for left knee gel injection. PFSH Medical History HLD (hyperlipidemia) Ankle fracture, left Morbid obesity Hypertension Primary osteoarthritis of right hip Gout Rupture of right biceps tendon Surgical History History of ankle surgery History of right hip replacement History of carpal tunnel repair H/O colonoscopy H/O right wrist surgery History of left hip replacement Family History Father COPD (chronic obstructive pulmonary disease) Cancer Hypertension Substance abuse Mother COPD (chronic obstructive pulmonary disease) Hypertension Substance abuse Social History Housing: House Are you a primary care taker to a significant other at home: No Do you presently have visiting nurse or other home services: No Patient Tobacco Use Status: Current everyday Tobacco user Tobacco use type: Cigarette Cigarettes Per Day: 2 Years Smoked: 15 e-Cigarette/Vaping Use: Currently Using Second Hand Smoke Exposure: No Substance Use Type: Marijuana service: No Current occupational status: employed 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 Site was prepped using aseptic technique. Patient tolerated the procedure well. Shoulders, Hips, Knees, Knee Large Joint Injection : Left Knee Coding Procedure code (CPT) selection complete Assessment & Plan Assessment & Plan (1) Patellofemoral arthritis of left knee: Code(s): M17.12 - Unilateral primary osteoarthritis, left knee Category: Medical Plan: Left knee OA. Injected Gel-One. Coding Level of Care Code Est Pt Level 2 (99489) Diagnoses Patellofemoral arthritis of left knee M17.12 CPT Codes Shoulders, Hips, Knees, - Knee Large Joint Injection : Left Knee ([id number])
== END 2025-06-20 11:10 | disposition home or self-care (01) ==
PROVIDERS: PCP Nurse Practitioner Family; Visit Provider Orthopaedic Surgery
DX: M17.12 Unilateral primary osteoarthritis, left knee (principal)
CPT/HCPCS: 20610

== ENCOUNTER → 2025-06-20 10:45 | Outpatient (BNVA) | payer OTHER, SELFPAY | PROVIDERS: PCP Nurse Practitioner Family; Visit Provider Orthopaedic Surgery | DX: M17.12 Unilateral primary osteoarthritis, left knee (principal) | CPT/HCPCS: 20610; J7325 ==

== ENCOUNTER 2025-06-21 08:03 | Outpatient (REF) | payer OTHER, SELFPAY ==
[2025-06-21 10:52] LABS: Microalbum/Creatinine Ratio Ur 13.6 ug/mg cr (<30)
== END 2025-06-21 08:04 | disposition home or self-care (01) ==
LOC: HO.HMGCLDS 08:03
PROVIDERS: PCP Nurse Practitioner Family; Visit Provider Nurse Practitioner Family
DX: E11.9 Type 2 diabetes mellitus without complications (principal); I10 Essential (primary) hypertension; R31.29 Other microscopic hematuria; Z12.5 Encounter for screening for malignant neoplasm of prostate
CPT/HCPCS: 36415; 82043; 82570; 83036; 84153; 88112; 99212

== ENCOUNTER 2025-06-21 08:03 | Outpatient (AMB) | payer OTHER, SELFPAY ==
--- OUTSIDE RECORDS SUMMARY | 2025-06-21 08:10 | XMS_ITS | Clinical Summary ---
Author Organization [facility] [address] [facility] Address [address] [place] [address] Phone Care Team Providers Care Event Decorator Name Role Phone Alirio Iqbal NP Primary Care Provider Surgical History Surgery Date Site/Laterality Comments CARPAL TUNNEL RELEASE PROCEDURE: HISTORICAL CARPAL TUNNEL REL OTHER SURGICAL HISTORY PROCEDURE: COLONOSCOPY, SURGICAL OTHER SURGICAL HISTORY Right PROCEDURE: [place] UNLISTED PROCEDURE FOREARM/WRIST; COMMENT: R-wrist surgery OTHER SURGICAL HISTORY Left PROCEDURE: MD ANESTHESIA ARTHROSCOPIC HIP JOINT PROCEDURE; COMMENT: L [...] Signed Date: 12/21/2024 11:14 ET Workstation ID: [id number] Transcribed By: Self Edit Transcribed Date: 12/21/2024 11:04 ET Narrative 12/21/2024 11:14 AM EDT EXAMINATION: CT CHEST WITHOUT CONTRAST LUNG CANCER SCREENING, LOW DOSE CLINICAL INFORMATION: Lung cancer screening. Current smoker. COMPARISON: None TECHNIQUE: Multidetector CT. Examination of the chest. Examination of the chest without IV contrast. Reformatting in the coronal and sagittal planes. Device: [employer] DLP: 170 mGy-cm CTDI: 4.89 Dose optimization [...] in the coronal and sagittal planes. Device: [employer]er DLP: 170 mGy-cm CTDI: 4.89 Dose optimization [...] Signed Date: 12/21/2024 11:14 ET Workstation ID: [id number] Transcribed By: Self Edit Transcribed Date: 12/21/2024 11:04 ET Adolfo Miller MD IM CT PROCEDURES Final Result from Last 3 Months or Most Recently Relevant to Health Maintenance Insurance [facility] [employer] PLAN [place]IRE[place] [id number] Care Teams Event Decorator Relationship Specialty Start Date End Date Alirio Iqbal NP [address] [facility] [place] PCP - General 06/19/23
[2025-06-21 08:26] VITALS: BP 124/74; PULSE 97; RESP 16; O2SAT 97; BMI 44.6
--- NOTE | 2025-06-21 08:26 | A.OFFPC_ITS ---
Vital Signs 06/21/25 08:26 Height 5 ft 7 in Weight 285 lb BMI 44.6 BP 124/74 Blood Pressure Location Lt brachial Position Sitting Respiration 16 Pulse 97 Pulse Source Pulse Oximeter Pulse Oximetry (%) 97 Intake Visit Reasons: 3 months f/up Skinner Pelts Required: No Accompanied by: Self / Same As Patient Allergies No Known Allergies Allergy (Verified 06/21/25 08:39) Tobacco use date assessed: 06/21/25 Dental Screening Dental Screen Date: 06/21/25 Did you have a dental visit in the last 12 months?: Yes Did you have a dental problem in the last 6 months where you did not have access to dental care?: No Was dental information given to patient?: Patient has dentist HPI 3 months f/up HPI Details Chief Complaint The patient presents for a follow-up visit for diabetes management. History of Present Illness The patient is a 60 year old individual presenting for follow-up for diabetes. The patient's recent A1c was 6.0%, and other recent labs were within normal limits. The patient's microalbumin screen is up-to-date. The patient previously took Mounjaro, which was reported to be very effective but was discontinued by insurance. The patient has a history of microscopic hematuria and has been evaluated by urology. The patient has a history of smoking and receives annual low-dose CT scans for screening. The patient is due for an eye exam and reports an increase in floaters in the left eye. The patient denies any symptoms of neuropathy. Social History - Substance Use: The patient has a histo ry of smoking. Health Maintenance The patient is due for an eye exam and reports increased floaters in the left eye; the patient will call to schedule this. The patient will continue with annual low-dose CT scans through [facility] for lung cancer screening due to a smoking history. Review of Systems - Eyes: Reports an increase in floaters in the left eye. - Neurological: Denies neuropathy. -denies any mae, blurred vision, dizzines s, cp, sob Physical Exam General: Cooperative, healthy appearing, comfortable, no acute distress and well developed, morbidly obese Orientation: Patient oriented x3 Limitations: No limitations Head: Normal to inspection Ears: Hearing grossly normal bilaterally Nose: Normal external nose present Face and sinus: Normal facial exam Eyes: Appearance normal, both eyes and all related structures, reports getting more floaters in left eye Neck: Normal visual inspection and Yes full ROM Respiratory: Normal respiratory effort and able to speak in complete sentences. Clear to auscultation bilaterally Cardiovascular: Regular rate and rhythm. Normal S1 and S2 GI: Normal to inspection. Soft to palpation and nontender Skin: No rashes or lesions noted Neuro: Patient oriented x3, positive sensation with use of monofilament to feet Extremities: Normal to inspection, except for onychomycosis noted bilat Results - Labs: Recent labs are within normal li mits. - Labs: Hemoglobin A1c is 6.0%. - Tests and diagnostics: Microalbumin son menendez is up-to-date. Plan 1. Diabetes Mellitus The patient's A1c is 6.0%. Mounjaro will be restarted as it was previously effective for the patient. A prescription will be resent today. The patient will follow up in 6 months. 2. Morbid Obesity The patient is morbidly obese. The patient will be restarted on Mounjaro, which was previously effective. 3. History Of Microscopic Hematuria The patient has a history of microscopic hematuria and has seen urology. A urine cytology will be obtained due to the patient's smoking history. Discussion Notes I will restart the patient on Mounjaro for diabetes, as the patient reported it worked very well previously before it was stopped by insurance. I advised the patient on the plan to order a urine cytology due to the history of microscopic hematuria and smoking. We discussed the need for the patient to call and schedule a follow-up eye exam, especially considering the report of increased floaters. The patient will continue with annual low-dose CT scans as part of lung cancer screening. I will see the patient for follow-up in 6 months. Patient Instructions - We are restarting your Mounjaro medica tion for your diabetes. A prescription will be sent to your pharmacy today. - Please call to schedule an eye exam, a s you are due for one. Be sure to tell the eye doctor about the increase in floaters in your left eye. - We will be ordering a urine test leiva d a cytology because of your history of blood in the urine and your smoking history. - Continue to get your low-dose CAT scan of your chest once a year. - Please schedule a follow-up appointmen t to see me in 6 months. [facility] Medical History HLD (hyperlipidemia) Ankle fracture, left Morbid obesity Hypertension Primary osteoarthritis of right hip Gout Rupture of right biceps tendon Surgical History History of ankle surgery History of right hip replacement History of carpal tunnel repair H/O colonoscopy H/O right wrist surgery History of left hip replacement Family History Father COPD (chronic obstructive pulmonary disease) Cancer Hypertension Substance abuse Mother COPD (chronic obstructive pulmonary disease) Hypertension Substance abuse Social History Housing: House Are you a primary doggy daycare activities director to a significant other at home: No Do you presently have visiting nurse or other home services: No Patient Tobacco Use Status: Current everyday Tobacco user Tobacco use type: Cigarette Cigarettes Per Day: 2 Years Smoked: 15 e-Cigarette/Vaping Use: Currently Using Second Hand Smoke Exposure: No Substance Use Type: Marijuana service: No Current occupational status: employed 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, 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 Current occupational exposures/hazards: No Cognitive needs: No Hearing needs: No Vision needs: No Questionnaire Thrive Questionnaire Date Thrive assessed: 10/07/24 I am a: Patient What is your living situation today?: I have a steady place to live Within the past 12 months, did the food you bought not last and you didn't have the money to get more?: Sometimes True Within the past 12 months, did you worry whether your food would run out before you got money to buy more?: Sometimes True Do you have trouble paying for medicines?: No Do you have trouble getting transportation to medical appointments?: No Do you have trouble paying your heating and electricity bill?: No Do you have trouble taking care of your child, family member or friend?: No Do you have trouble with day-to-day activities such as bathing, preparing meals, shopping, managing finances, etc.?: Yes Are you currently unemployed and looking for a job?: No Are you interested in more education?: No Please select the resources that you would like help with: None Currently or been in a relationship where the following occur: No concerns reported THRIVE Score: 2 AISHA-7 AMB Questionnaire AISHA-7 Date AISHA - 7 assessed: 02/22/25 Source: Developed by Drs. Kevin Grant, Gemini Collazo, Marcello Pinzon and colleagues, with an educational cara from [employer]. Physical exam (Primary Care) Vital Signs: Last Vital Signs Pulse 97 06/21/25 08:26 Resp 16 06/21/25 08:26 BP 124/74 06/21/25 08:26 Pulse Ox 97 06/21/25 08:26 BMI result Body Mass Index 44.6 Tobacco/Smoking Status: Tobacco use Status Tobacco use date assessed 06/21/25 06/21/25 08:41 Patient Tobacco Use Status Current everyday Tobacco 06/21/25 08:28 Tobacco use type Cigarette 06/21/25 08:28 e-Cigarette/Vaping Use Currently Using 06/21/25 08:28 Thrive Assessment: Date of Thrive Assessment Date Thrive assessed 10/07/24 06/21/25 08:28 Currently or been in a relationship where the following occur: No concerns reported Results AMB Hemoglobin A1c AMB Hemoglobin A1c 6.0 % Last Edit by Trinh Hernandez MA on 06/21/25 08:45 Coding Level of Care Code Est Pt Level 3 (74256) Diagnoses Diabetes E11.9 HTN (hypertension) I10 Screening PSA (prostate specific antigen) Z12.5 Microscopic hematuria R31.29 Assessment & Plan Assessment & Plan (1) Diabetes: Code(s): E11.9 - Type 2 diabetes mellitus without complications Category: Medical (2) HTN (hypertension): Code(s): I10 - Essential (primary) hypertension Category: Medical (3) Screening PSA (prostate specific antigen): Code(s): Z12.5 - Encounter for screening for malignant neoplasm of prostate Category: Medical (4) Microscopic hematuria: Code(s): R31.29 - Other microscopic hematuria Category: Medical Plan . Orders: Orders AMB Hemoglobin A1c Today E11.9 - Type 2 diabetes mellitus without complications Prostate Specific Antigen Scr Today Z12.5 - Encounter for screening for malignant neoplasm of prostate Urine Cytology Today R31.29 - Other microscopic hematuria Microalbumin, Random (w Creat) Today E11.9 - Type 2 diabetes mellitus without complications Medications: New tirzepatide (Mounjaro) for 4 weeks 2.5 mg (0.5 mL) subcut QWEEK 2 mL 0RF Discontinued tirzepatide for 4 weeks Discontinued Reason: Duplicate 5 mg (0.5 mL) subcut QWEEK 2 mL 0RF
== END 2025-06-21 09:09 | disposition home or self-care (01) ==
LOC: HO.HMCC 08:04
PROVIDERS: PCP Nurse Practitioner Family; Visit Provider Nurse Practitioner Family
DX: E11.9 Type 2 diabetes mellitus without complications (principal); I10 Essential (primary) hypertension; Z12.5 Encounter for screening for malignant neoplasm of prostate; R31.29 Other microscopic hematuria

== ENCOUNTER 2025-06-22 09:13 | Outpatient (REF) | payer OTHER, SELFPAY ==
--- NOTE | ~2025-06-22 | CT_ITS ---
CLINICAL HISTORY: M19.011 - Primary osteoarthritis, right shoulder --- Additional Notes or Special Instructions: Tournier PROTOCOL CT LEFT SHOULDER WITHOUT CONTRAST Comparison: CR/SR - XR SHOULDER 2 OR MORE VIEWS LEFT - 10/22/22 09:54 EDT Findings: No acute fracture, destructive lesion or humeral head osteonecrosis. No dislocation. Moderately severe narrowing with degenerative spurring and productive bony changes in the glenohumeral joint. Moderate narrowing with degenerative spurring in the acromioclavicular joint. Multiple irregular calcific densities, largest 8 mm, are identified in the supraspinatus muscle. Multiple calcific densities are identified adjacent to the humeral head, largest 6 mm. No visible bursal fluid. Multiple nonenlarged, nonspecific left axillary lymph nodes. No acute abnormalities in the visualized left lung. Impression: 1. No acute fracture or dislocation. 2. Moderate to moderately severe degenerative changes especially in the glenohumeral joint. 3. Intramuscular calcifications likely sequelae of prior injury or infection. 4. Probable glenohumeral and acromiohumeral loose bodies. This document has been electronically signed by: Val Dsouza DO on 06/22/2025 14:41:49
--- OUTSIDE RECORDS SUMMARY | 2025-06-22 09:55 | XMS_ITS | Clinical Summary ---
Author Organization [facility] [address] [facility] Address [address] [place] [address] Phone Care Team Providers Care Cognos Bi Administrator Name Role Phone Alirio Iqbal NP Primary Care Provider Surgical History Surgery Date Site/Laterality Comments CARPAL TUNNEL RELEASE PROCEDURE: HISTORICAL CARPAL TUNNEL REL OTHER SURGICAL HISTORY PROCEDURE: COLONOSCOPY, SURGICAL OTHER SURGICAL HISTORY Right PROCEDURE: [place] UNLISTED PROCEDURE FOREARM/WRIST; COMMENT: R-wrist surgery OTHER SURGICAL HISTORY Left PROCEDURE: [place] ANESTHESIA ARTHROSCOPIC HIP JOINT PROCEDURE; COMMENT: L [...] Signed Date: 12/21/2024 11:14 ET Workstation ID: [id number] Transcribed By: Self Edit Transcribed Date: 12/21/2024 11:04 ET Narrative 12/21/2024 11:14 AM EDT EXAMINATION: CT CHEST WITHOUT CONTRAST LUNG CANCER SCREENING, LOW DOSE CLINICAL INFORMATION: Lung cancer screening. Current smoker. COMPARISON: None TECHNIQUE: Multidetector CT. Examination of the chest. Examination of the chest without IV contrast. Reformatting in the coronal and sagittal planes. Device: [employer] DLP: 170 mGy-cm CTDI: 4.89 Dose optimization [...] in the coronal and sagittal planes. Device: [employer]er DLP: 170 mGy-cm CTDI: 4.89 Dose optimization [...] Signed Date: 12/21/2024 11:14 ET Workstation ID: [id number] Transcribed By: Self Edit Transcribed Date: 12/21/2024 11:04 ET Adolfo Miller MD IM CT PROCEDURES Final Result from Last 3 Months or Most Recently Relevant to Health Maintenance Insurance [facility] [employer] PLAN [place] RAMIRE[place] [id number] Care Teams Cognos Bi Administrator Relationship Specialty Start Date End Date Alirio Iqbal NP [address] [facility] [place] PCP - General 06/19/23
== END 2025-06-22 09:14 | disposition home or self-care (01) ==
LOC: HO.CT 09:13
PROVIDERS: PCP Nurse Practitioner Family; Visit Provider Orthopaedic Surgery
DX: M19.011 Primary osteoarthritis, right shoulder (principal); M19.012 Primary osteoarthritis, left shoulder
CPT/HCPCS: 73200

== ENCOUNTER → 2025-06-22 09:14 | Outpatient (BNV) | payer OTHER, SELFPAY | PROVIDERS: PCP Nurse Practitioner Family; Visit Provider Radiology Diagnostic Radiology | DX: M19.012 Primary osteoarthritis, left shoulder (principal); M75.32 Calcific tendinitis of left shoulder | CPT/HCPCS: 73200 ==

== ENCOUNTER → 2025-06-24 07:13 | Outpatient (BNV) | payer OTHER, SELFPAY | PROVIDERS: PCP Nurse Practitioner Family; Visit Provider Specialist | DX: M19.012 Primary osteoarthritis, left shoulder (principal); M25.412 Effusion, left shoulder | CPT/HCPCS: 73221 ==

== ENCOUNTER 2025-06-24 07:14 | Outpatient (REF) | payer OTHER, SELFPAY ==
--- NOTE | ~2025-06-24 | MR_ITS ---
CLINICAL HISTORY: M19.012 - Primary osteoarthritis, left shoulder MR left shoulder without gadolinium Comparison: None provided Findings: No acute fractures. No pathologic bone lesions. There are significant changes of osteoarthritis in the glenohumeral joint. There are degenerative/arthritic changes in the acromioclavicular joint Type II acromion without downsloping. There is a glenohumeral joint effusion and fluid in the acromioclavicular joint. There are questionable glenohumeral joint loose bodies. The rotator cuff tendons are intact. The long head of biceps is intact. No tears of the glenoid labrum. IMPRESSION: AC and glenohumeral joint osteoarthritis with associated joint effusions. Questionable glenohumeral intra-articular loose bodies. This document has been electronically signed by: Jaswinder Oswald MD on 06/25/2025 08:41:45
--- OUTSIDE RECORDS SUMMARY | 2025-06-24 07:18 | XMS_ITS | Clinical Summary ---
Author Organization [facility] [address] [facility] Address [address] [place] [address] Phone Care Team Providers Care Worm Farmer Name Role Phone Alirio Iqbal NP Primary Care Provider Surgical History Surgery Date Site/Laterality Comments CARPAL TUNNEL RELEASE PROCEDURE: HISTORICAL CARPAL TUNNEL REL OTHER SURGICAL HISTORY PROCEDURE: COLONOSCOPY, SURGICAL OTHER SURGICAL HISTORY Right PROCEDURE: CA UNLISTED PROCEDURE FOREARM/WRIST; COMMENT: R-wrist surgery OTHER SURGICAL HISTORY Left PROCEDURE: CA ANESTHESIA ARTHROSCOPIC HIP JOINT PROCEDURE; COMMENT: L [...] Signed Date: 12/21/2024 11:14 ET Workstation ID: [id number] Transcribed By: Self Edit Transcribed Date: 12/21/2024 11:04 ET Narrative 12/21/2024 11:14 AM EDT EXAMINATION: CT CHEST WITHOUT CONTRAST LUNG CANCER SCREENING, LOW DOSE CLINICAL INFORMATION: Lung cancer screening. Current smoker. COMPARISON: None TECHNIQUE: Multidetector CT. Examination of the chest. Examination of the chest without IV contrast. Reformatting in the coronal and sagittal planes. Device: EQOer DLP: 170 mGy-cm CTDI: 4.89 Dose optimization [...] in the coronal and sagittal planes. Device: EQOer DLP: 170 mGy-cm CTDI: 4.89 Dose optimization [...] Signed Date: 12/21/2024 11:14 ET Workstation ID: [id number] Transcribed By: Self Edit Transcribed Date: 12/21/2024 11:04 ET Adolfo Miller MD IM CT PROCEDURES Final Result from Last 3 Months or Most Recently Relevant to Health Maintenance Insurance [facility] PLAN MEDICAID - [place]SA RAMIREZ [id number] Care Teams Worm Farmer Relationship Specialty Start Date End Date Alirio Iqbal NP [address] [facility] [place] PCP - General 06/19/23
== END 2025-06-24 07:15 | disposition home or self-care (01) ==
LOC: HO.MRI 07:14
PROVIDERS: PCP Nurse Practitioner Family; Visit Provider Orthopaedic Surgery
DX: M19.012 Primary osteoarthritis, left shoulder (principal)
CPT/HCPCS: 73221

== ENCOUNTER 2025-07-06 08:45 | Outpatient (AMB) | payer OTHER, SELFPAY ==
--- NOTE | 2025-07-06 08:50 | A.OFFVIS_ITS ---
Vital Signs 07/06/25 08:51 Height 5 ft 7 in Weight 277 lb 12.519 oz BMI 43.5 BP 142/72 H Blood Pressure Location Lt brachial Position Sitting Pulse 106 H Intake Visit Reasons: Screening Intake Note: Hans presents in the office as a colonoscopy screening. CC: States that his last was 10 years ago - no concerns. 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: No Allergies No Known Allergies Allergy (Verified 07/06/25 08:52) Medication List - Last Reconciled 07/06/25 by Yecenia Holman CNP amlodipine 5 mg PO DAILY blood sugar diagnostic (FreeStyle Lite Strips) Test blood sugar twice a day blood-glucose meter (FreeStyle Lite Meter kit) Test blood sugar twice a day cetirizine (Zyrtec) 10 mg PO DAILY duloxetine 30 mg PO DAILY gabapentin 100 mg PO TID garlic 400 mg PO DAILY ibuprofen (IBU) 800 mg PO DAILY PRN 90 days ipratropium bromide 2 sprays intranasal DAILY krill oil mg PO lancets (FreeStyle Lancets) Test blood sugar twice a day lisinopril 40 mg PO DAILY 90 days metformin ER 500 mg PO BID nicotine 1 patch transdermal DAILY rosuvastatin 40 mg PO DAILY 90 days tirzepatide (Mounjaro) 2.5 mg (0.5 mL) subcut QWEEK walker Folding Front wheeled walker HPI HPI Screening: Details: Patient is a 60-year-old male with PMH of obesity, hypertension, hyperlipidemia, diabetes. Referred by PCP for pre colonoscopy screening. His last colonoscopy was 10 years ago and reported as normal with no polyps found. He reports daily bowel movements, sometimes with a sensation of incomplete evacuation, but denies pain, nausea, vomiting, or blood in the stool. He has a history of type 2 diabetes, managed with metformin and Mounjaro, which was recently restarted for weight management. He successfully lost weight on Mounjaro previously, going from 310 to 280 pounds. His hypertension is managed by his primary care physician. Past medical history is notable for a shoulder dislocation from a fall 8 years ago, which is now being addressed. He reports hematuria that is being monitored by his primary care physician and is described as minute. Patient denies: fever/chills, n/v, pyrosis, regurgitation, dysphasia, unintentional wt loss, ab pain or melena/hematochezia. 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 -smokes marijuana daily, denies other recreational drug use -current 1/2 ppd smoker - family hx as below -denies personal hx of CA -denies significant cardiopulmonary history -tolerated anesthesia in the past without difficulty. [facility] Medical History HLD (hyperlipidemia) Ankle fracture, left Morbid obesity Hypertension Primary osteoarthritis of right hip Gout Rupture of right biceps tendon Surgical History History of ankle surgery History of right hip replacement History of carpal tunnel repair H/O colonoscopy H/O right wrist surgery History of left hip replacement Family History (Updated 07/06/25 @ 09:28 by Yecenia Holman CNP) Father COPD (chronic obstructive pulmonary disease) Cancer Hypertension Substance abuse Mother COPD (chronic obstructive pulmonary disease) Hypertension Substance abuse Brother Cancer COPD (chronic obstructive pulmonary disease) Social History Housing: House Are you a primary child care provider to a significant other at home: No Do you presently have visiting nurse or other home services: No Patient Tobacco Use Status: Current everyday Tobacco user Tobacco use type: Cigarette Cigarettes Per Day: 2 Years Smoked: 15 e-Cigarette/Vaping Use: Currently Using Second Hand Smoke Exposure: No Substance Use Type: Marijuana service: No Current occupational status: employed 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, 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 Current occupational exposures/hazards: No Cognitive needs: No Hearing needs: No Vision needs: No Review of Systems Const Reports as per HPI ENT Reports as per HPI Card Reports as per HPI Resp Reports as per HPI GI Reports as per HPI Reports as per HPI Physical Exam Vital Signs: Last Vital Signs Pulse 106 H 07/06/25 08:51 BP 142/72 H 07/06/25 08:51 BMI result Body Mass Index 43.5 Const General: healthy appearing, no acute distress and well developed Nutritional Appearance: obese Orientation/consciousness: patient oriented x3 HEENT Head: Yes normal to inspection, Yes normocephalic and Yes atraumatic Face and sinus: Yes normal facial exam Eyes General: appearance normal, both eyes and all related structures Neck Neck: Yes normal visual inspection Resp Effort & Inspection: normal respiratory effort, able to speak in complete sentences, no tracheal deviation and symmetric chest movement Cardio Jugular venous distension: no JVD GI Inspection: Yes obesity Auscultation: normal bowel sounds Neuro General: patient oriented x3 Gait exam (Neuro): Normal gait present Psych Appearance: grossly normal Mental Status: mental status grossly normal Speech and movement: Normal speech and movement present Affect: normal affect Attitude: cooperative Thought process: Normal thought process present Thought content: Normal thought content present Insight: Good insight present (Psych) Judgement: Good judgement present (Psych) Assessment & Plan Assessment & Plan (1) Screening for colon cancer: Code(s): Z12.11 - Encounter for screening for malignant neoplasm of colon Category: Medical Plan: Due for age-appropriate screening. No alarm features. Medications: -prescriptions for laxative tablets and MiraLax sent to pharmacy; instructions for Gatorade purchase and clear liquid diet given. -Understands diabetes medications will need to be held days prior to procedure. Nurse to review med holds per protocol. Patient educated on scheduling process, procedure preparation, including avoiding certain foods and ensuring clear liquid intake Advised on necessity for ride post-procedure due to sedation. Plan Follow-up as needed Time: I spent a total of 22 minutes on the date of encounter which includes: Preparing to see the patient (reviewed previous documentation, test results and medical history) Performing a medically appropriate exam and/or evaluation Ordering medications, tests, and procedures Documenting clinical information in the health record Orders: Referrals GI Procedure Notification Z12.11 - Encounter for screening for malignant neoplasm of colon Medications: New polyethylene glycol 3350 (Miralax) per colonoscopy prep instructions 238 grams PO ONCE 238 grams 0RF bisacodyl take four tablets once day of colonoscopy prep 20 mg (4 x 5 mg) PO ONCE 4 tabs 0RF Coding Level of Care Code New Pt New Pt Level 2 (52438) Patient Type New Diagnoses Screening for colon cancer Z12.11
[2025-07-06 08:51] VITALS: BP 142/72; PULSE 106; BMI 43.5
--- OUTSIDE RECORDS SUMMARY | 2025-07-06 09:15 | XMS_ITS | Clinical Summary ---
Author Organization [facility] [address] [facility] Address [address] [place] [address] Phone Care Team Providers Care Esl Professor Name Role Phone Alirio Iqbal NP Primary [...] on file Sexual Orientation Not on file Last Filed Vital Signs Vital Sign Reading [...] Signed Date: 12/21/2024 11:14 ET Workstation ID: [id number] Transcribed By: Self Edit Transcribed Date: 12/21/2024 11:04 ET Narrative 12/21/2024 11:14 AM EDT EXAMINATION: CT CHEST WITHOUT CONTRAST LUNG CANCER SCREENING, LOW DOSE CLINICAL INFORMATION: Lung cancer screening. Current smoker. COMPARISON: None TECHNIQUE: Multidetector CT. Examination of the chest. Examination of the chest without IV contrast. Reformatting in the coronal and sagittal planes. Device: Octapolyer DLP: 170 mGy-cm CTDI: 4.89 Dose optimization [...] in the coronal and sagittal planes. Device: Octapolyer DLP: 170 mGy-cm CTDI: 4.89 Dose optimization [...] Signed Date: 12/21/2024 11:14 ET Workstation ID: [id number] Transcribed By: Self Edit Transcribed Date: 12/21/2024 11:04 ET Adolfo Miller MD IM CT PROCEDURES Final Result from Last 3 Months or Most Recently Relevant to Health Maintenance Insurance [facility] [email or web address] [place] [id number] Care Teams Esl Professor Relationship Specialty Start Date End Date Alirio Iqbal NP [address] [place], [place] PCP - General 06/19/23
== END 2025-07-06 09:43 | disposition home or self-care (01) ==
LOC: HO.HGI 08:46
PROVIDERS: PCP Nurse Practitioner Family; Visit Provider Nurse Practitioner Family
DX: Z01.818 Encounter for other preprocedural examination (principal); Z12.11 Encounter for screening for malignant neoplasm of colon
CPT/HCPCS: 99202

== ENCOUNTER → 2025-07-06 08:45 | Outpatient (BNVA) | payer OTHER, SELFPAY | PROVIDERS: PCP Nurse Practitioner Family; Visit Provider Nurse Practitioner Family | DX: Z12.11 Encounter for screening for malignant neoplasm of colon (principal) | CPT/HCPCS: 99202 ==